=== PATIENT | male | born 1950 | race Caucasian/White ===

== ENCOUNTER 2021-02-16 08:11 | Outpatient (CLI) | payer MEDICARE, SELFPAY ==
--- NOTE | ~2021-02-16 | XR_ITS ---
EXAMINATION: XR knee RT min 4V DATE: 02/16/2021 09:09 INDICATION: Right knee pain. TECHNIQUE: 4 views of right knee were obtained. COMPARISON: None. FINDINGS: Bone alignment is normal. No fracture. There is mild tricompartmental osteoarthritis. There is chondrocalcinosis of the [place]i. No knee joint effusion. IMPRESSION: 1. Mild right knee osteoarthritis. Reviewed, dictated and finalized at location B.
--- NOTE | ~2021-02-16 | XR_ITS ---
EXAMINATION: XR knee LT min 4V DATE: 02/16/2021 09:09 INDICATION: Left knee pain. TECHNIQUE: 4 views of left knee standing were obtained. COMPARISON: None. FINDINGS: Bone alignment is normal. No fracture. There is mild tricompartmental osteoarthritis. No kn ee joint effusion. IMPRESSION: 1. Mild left knee osteoarthritis. Reviewed, dictated and finalized at location B.
--- NOTE | ~2021-02-16 | XR_ITS ---
EXAMINATION: XR hip BI 2V w AP pelvis DATE: 02/16/2021 09:09 INDICATION: Hip pain TECHNIQUE: AP view of the pelvis and two views of each hip were obtained. COMPARISON: None. FINDINGS: Bone alignment is normal. There is mild osteoarthritis of the hips. No fracture is identifi ed. There are phleboliths of the pelvis. Calcified atherosclerosis is noted. IMPRESSION: 1. Osteoarthritis of the hips. Reviewed, dictated and finalized at location A.
[2021-02-16 08:54] LABS: Basophils Percent Auto 0.5 % (0.2-1.2); Eosinophils Absolute Auto 0.2 K/mm3 (0-0.3); Eosinophils Percent Auto 2.7 % (0-4.4); Hematocrit 40.7 % (42.0-52.0); Hemoglobin 14.6 g/dL (14.0-18.0); Immature Granulocyte Absolute 0.03 K/mm3 (0.00-0.031); Immature Granulocyte Percent A 0.5 % (0-0.5); Lymphocytes Absolute Auto 1.47 K/mm3 (0.9-3.2); Lymphocytes Percent Auto 24.6 % (18.3-44.2); Mean Corpuscular HGB Conc 35.9 g/dl (32-36); Mean Corpuscular Hemoglobin 32.8 pg (26-34); Mean Corpuscular Volume 91.5 fl (80-100); Mean Platelet Volume 9.1 fl (7.4-10.4); Monocytes Absolute Auto 0.5 K/mm3 (0.1-0.6); Monocytes Percent Auto 8.5 % (2.6-8.5); Neutrophils Absolute Auto 3.8 K/mm3 (1.3-6.7); Neutrophils Percent Auto 63.2 % (45.5-73.1); Platelet Count Result 160 k/mm3 (150-375); Red Blood Count 4.45 M/mm3 (4.6-6.20); Red Cell Distribution Width 11.9 % (11.5-14.5)
[2021-02-16 09:12] LABS: Hemoglobin A1C 7.9 % (<5.7)
[2021-02-16 09:19] LABS: LDL Cholesterol Direct 67 mg/dL
[2021-02-16 09:45] LABS: Alanine Aminotransferase 45 U/L (4-50); Albumin Level 4.5 g/dL (3.5-5.1); Alkaline Phosphatase 64 U/L (38-126); Anion Gap 7 mmol/L (8-16); Aspartate Amino Transferase 34 U/L (17-59); Bilirubin,Total 0.2 mg/dL (0.2-1.3); Blood Urea Nitrogen 22 mg/dL (9-20); CRP 0.6 mg/dL (<1.0); Calcium 9.8 mg/dL (8.4-10.2); Carbon Dioxide 27 mmol/L (22-30); Chloride 104 mmol/L (98-107); Cholesterol 199 mg/dL (0-200); Creatine Kinase 103 U/L (55-170); Estimated Glomerular Filt Rate > 60; Glucose 270 mg/dL (75-110); HDL Direct 32 mg/dL; Potassium 4.5 mmol/L (3.4-5.0); Sodium 138 mmol/L (137-145)
[2021-02-16 09:49] LABS: Triglycerides 561 mg/dL (<150)
[2021-02-16 10:10] LABS: Free T4 Free Thyroxine 0.94 ng/mL (0.78-2.19)
[2021-02-18 10:37] LABS: Homocysteine 10.8 umol/L (<11.4)
== END 2021-02-16 08:12 | disposition home or self-care (01) ==
PROVIDERS: PCP Internal Medicine; Visit Provider Internal Medicine
DX: E11.9 Type 2 diabetes mellitus without complications (principal); I10 Essential (primary) hypertension; Z79.899 Other long term (current) drug therapy; E78.2 Mixed hyperlipidemia; M17.0 Bilateral primary osteoarthritis of knee; M16.0 Bilateral primary osteoarthritis of hip
CPT/HCPCS: 36415; 73521; 73564; 80053; 80061; 82550; 83036; 83090; 84439; 84443; 85025; 86140

== ENCOUNTER 2021-02-19 10:44 | Outpatient (CLI) | payer MEDICARE, SELFPAY ==
--- NOTE | ~2021-02-19 | CT_ITS ---
EXAMINATION: CT chest high resolution [facility] DATE: 02/19/2021 11:19 INDICATION: Dyspnea. Smoker. COPD. TECHNIQUE: Computed tomography (CT) of the chest was performed without intravenous contrast. The dose -length product was 577.74 mGy-cm. Automated exposure control and iterative reconstruction technique were employed. COMPARISON: None FINDINGS: There is atherosclerosis of the aorta with mild ectasia. There is atherosclerosis of the co ronary arteries. No significant pleural or pericardial effusion. No thoracic lymphadenopathy. Upper a bdomen is unremarkable. There is gynecomastia. Fatty infiltration of the liver. Evaluation of lung pa renchyma is limited by motion artifact. There are groundglass opacities in both lungs, predominantly in the upper lobes. No endobronchial lesions. No suspicious pulmonary nodules or masses. Calcified gr anuloma right middle lobe. IMPRESSION: 1. Patchy groundglass opacities in the upper lobes which may be due to small airway disease or infect ion. 2: Moderate atherosclerosis of the aorta and coronary arteries. Reviewed, dictated and finalized at location A. IMPRESSION: 1. Patchy groundglass opacities in the upper lobes which may be due to small ai rway disease or infection. 2: Moderate atherosclerosis of the aorta and coronary arteries.
== END 2021-02-19 10:45 | disposition home or self-care (01) ==
LOC: ANHIMG 10:46
PROVIDERS: PCP Internal Medicine; Visit Provider Internal Medicine
DX: J44.9 Chronic obstructive pulmonary disease, unspecified (principal); I25.10 Atherosclerotic heart disease of native coronary artery without angina pectoris; I70.0 Atherosclerosis of aorta
CPT/HCPCS: 71250

== ENCOUNTER 2021-02-26 08:57 | Outpatient (CLI) | payer MEDICARE, SELFPAY ==
--- NOTE | ~2021-02-26 | US_ITS ---
EXAMINATION: US abdomen limited DATE: 02/26/2021 09:56 INDICATION: Hepatomegaly. TECHNIQUE: Multiple grayscale and Doppler ultrasound images of the abdomen were obtained. COMPARISON: Chest CT 02/19/2021 FINDINGS: The visualized portions of the head and body of the pancreas are normal. There is diffuse h epatic steatosis. No liver surface nodularity. There is normal flow in main portal vein. The gallblad blade is normal in size and contains sludge. No gallstones or gallbladder wall thickening. There is no sonographic Ulloa sign. The common duct is normal and measures 7 mm. IMPRESSION: 1. Diffuse hepatic steatosis. 2. Gallbladder sludge. No evidence of acute cholecystitis. Reviewed, dictated and finalized at location A.
== END 2021-02-26 08:58 | disposition home or self-care (01) ==
PROVIDERS: PCP Internal Medicine; Visit Provider Internal Medicine
DX: K76.0 Fatty (change of) liver, not elsewhere classified (principal)
CPT/HCPCS: 76705

== ENCOUNTER 2021-03-03 11:00 | Outpatient (CLI) | payer MEDICARE, SELFPAY ==
--- NOTE | ~2021-03-03 | NM_ITS ---
EXAMINATION: NM hepatobiliary wo pharm DATE: 03/03/2021 14:06 INDICATION: Fatty change of liver, not elsewhere classified. COMPARISON: Ultrasound 02/26/2021 TECHNIQUE: 4.6 mCi Tc-99m mebrofenin (Choletec) was administered intravenously. Scintigraphic images of the abdomen were obtained for one hour. Then, the patient drank 8 oz Ensure, and imaging was cont inued for 60 minutes. FINDINGS: There is normal clearance of radiotracer from the blood pool. There is homogeneous tracer u ptake by the liver. Activity progresses to the bowel and gallbladder. Gallbladder ejection fraction (GBEF) was 23%. Note that with this technique, normal GBEF >= 33%. IMPRESSION: 1. Low gallbladder ejection fraction, consistent with gallbladder dysfunction and/or chronic cholecy stitis. Reviewed, dictated and finalized at location A. IMPRESSION: 1. Low gallbladder ejection fraction, consistent with gallbladder dysfunction and/or chronic cholecystitis.
== END 2021-03-03 11:01 | disposition home or self-care (01) ==
PROVIDERS: PCP Internal Medicine; Visit Provider Internal Medicine
DX: K76.0 Fatty (change of) liver, not elsewhere classified (principal)
CPT/HCPCS: 78226; A9537

== ENCOUNTER 2021-03-24 12:28 | Outpatient (CLI) | payer MEDICARE, SELFPAY ==
--- NOTE | 2021-03-24 16:08 | WPDPFTINT ---
PFT Procedure Performed PFT Procedure Performed Spirometry with Pre/Post Bronchodilator Plethysmography (Lung Vol) Diffusing Cap (DLCO) Flow Vol Loop PFT Interpretation This is a pulmonary function test with pre and post-bronchodilator spirometry, plethysmography and diffusing capacity. The test was performed and results interpreted in accordance with the 2019 and 2005 ATS/ERS Task Force guidelines respectively using the Global Lung Function Initiative-2012 reference equations. Patient demonstrated good effort and cooperation. Reproducibility criteria were met. The quality of the pre bronchodilator spirometry maneuver was Grade A and post bronchodilator spirometry maneuver was Grade A. Findings: Spirometry: there is decreased maximal expiratory airflow at low lung volumes with a concave expiratory flow tracing. The pre bronchodilator FVC is 2.83 L, 78% predicted. The pre bronchodilator FEV1 is 1.68 L, 61% predicted. The FEV1: FVC ratio is 59%. The post bronchodilator FVC is 3.00 L, representing a 6% increase. The post bronchodilator FEV1 is 1.79 L, representing a 6% increase. Plethysmography: The total lung capacity is 5.71 L, 91% predicted. Functional residual capacity is 3.11 L, 95% predicted. The residual volume is 2.74 L, 120% predicted. Diffusion capacity: The absolute diffusion capacity is 16.2, 67% predicted. The diffusing capacity corrected for alveolar volume is 3.54, 86% predicted. Impression: There is a moderate obstructive abnormality without significant improvement after inhaling a single dose of albuterol. The lung volumes are normal. the diffusing capacity is normal. There are no prior studies for comparison
== END 2021-03-24 12:29 | disposition home or self-care (01) ==
PROVIDERS: PCP Internal Medicine; Visit Provider Internal Medicine
DX: J44.9 Chronic obstructive pulmonary disease, unspecified (principal); R94.2 Abnormal results of pulmonary function studies
CPT/HCPCS: 94060; 94726; 94729

== ENCOUNTER 2021-04-13 13:23 | Outpatient (CLI) | payer MEDICARE, SELFPAY ==
[2021-04-13 14:02] LABS: Anion Gap 11 mmol/L (8-16); Blood Urea Nitrogen 32 mg/dL (7-18); Calcium 9.4 mg/dL (8.5-10.1); Carbon Dioxide 26 mmol/L (21-32); Chloride 101 mmol/L (98-108); Estimated Glomerular Filt Rate 50; Glucose 238 mg/dL (70-99); Osmolality Calculated 300 mOsm/kg (285-295); Potassium 5.1 mmol/L (3.5-5.1); Sodium 138 mmol/L (136-145)
== END 2021-04-13 13:24 | disposition home or self-care (01) ==
LOC: CHSLAB 13:28
PROVIDERS: PCP Internal Medicine
DX: I25.118 Atherosclerotic heart disease of native coronary artery with other forms of angina pectoris (principal); I10 Essential (primary) hypertension
CPT/HCPCS: 36415; 80048

== ENCOUNTER 2021-06-09 15:48 | Outpatient (CLI) | payer MEDICARE, SELFPAY ==
[2021-06-09 16:11] LABS: Hemoglobin A1C 6.8 % (<5.7)
[2021-06-09 16:59] LABS: Alanine Aminotransferase 95 U/L (16-63); Alkaline Phosphatase 48 U/L (46-116); Anion Gap 11 mmol/L (8-16); Aspartate Amino Transferase 42 U/L (15-37); Bilirubin,Total 0.4 mg/dL (0.00-1.00); Blood Urea Nitrogen 29 mg/dL (7-18); Calcium 9.3 mg/dL (8.5-10.1); Carbon Dioxide 28 mmol/L (21-32); Chloride 103 mmol/L (98-108); Cholesterol 144 mg/dL (0-200); Estimated Glomerular Filt Rate 44; Free T4 Free Thyroxine 0.94 ng/dL (0.76-1.46); Glucose 121 mg/dL (70-99); HDL Direct 31 mg/dL (40-60); LDL Cholesterol Calculated 61 mg/dL (<130); Osmolality Calculated 300 mOsm/kg (285-295); Potassium 4.2 mmol/L (3.5-5.1); Prostate Specific Antigen 1.9 ng/mL (< OR = 4.0); Sodium 142 mmol/L (136-145); Thyroid Stimulating Hormone 1.37 uIU/mL (0.36-3.74); Total Protein 6.9 g/dL (6.4-8.2); Triglycerides 262 mg/dL (0-150)
== END 2021-06-09 15:49 | disposition home or self-care (01) ==
LOC: CHSLAB 15:50
PROVIDERS: PCP Internal Medicine; Visit Provider Internal Medicine
DX: E78.2 Mixed hyperlipidemia (principal); E11.65 Type 2 diabetes mellitus with hyperglycemia; I10 Essential (primary) hypertension; Z79.899 Other long term (current) drug therapy; Z12.5 Encounter for screening for malignant neoplasm of prostate
CPT/HCPCS: 36415; 80053; 80061; 83036; 84153; 84439; 84443; G0103

== ENCOUNTER 2021-07-08 11:58 | Outpatient (CLI) | payer MEDICARE, SELFPAY ==
[2021-07-08 12:13] LABS: Add Urine Microscopic? YES; Appearance Urine Cloudy (Clear); Bilirubin Urine Negative (Negative); Blood Urine 1+ (Negative); Color Urine Light Yellow (Yellow); Glucose Urine UA Negative (Negative); Ketones Urine Negative (Negative); Leukocyte Esterase Ur 3+ LEU/UL (Negative); Nitrate Urine Negative (Negative); Protein Urine 1+ (Negative)
[2021-07-08 12:18] LABS: Bacteria Urine 2+ /hpf; WBC Urine 16-20 /hpf (0-3)
== END 2021-07-08 11:59 | disposition home or self-care (01) ==
LOC: CHSLAB 12:00
PROVIDERS: PCP Internal Medicine; Visit Provider Internal Medicine
DX: R39.9 Unspecified symptoms and signs involving the genitourinary system (principal); R82.90 Unspecified abnormal findings in urine
CPT/HCPCS: 81001; 87077; 87086; 87088; 87186

== ENCOUNTER 2021-07-20 14:44 | Outpatient (CLI) | payer MEDICARE, SELFPAY ==
[2021-07-20 15:46] LABS: Alanine Aminotransferase 64 U/L (16-63); Albumin Level 3.6 g/dL (3.4-5.0); Alkaline Phosphatase 54 U/L (46-116); Anion Gap 10 mmol/L (8-16); Aspartate Amino Transferase 25 U/L (15-37); Bilirubin Direct 0.1 mg/dL (0-0.2); Bilirubin,Total 0.3 mg/dL (0.00-1.00); Blood Urea Nitrogen 24 mg/dL (7-18); Carbon Dioxide 27 mmol/L (21-32); Chloride 104 mmol/L (98-108); Estimated Glomerular Filt Rate 57; Glucose 153 mg/dL (70-99); Osmolality Calculated 299 mOsm/kg (285-295); Potassium 4.3 mmol/L (3.5-5.1); Sodium 141 mmol/L (136-145); Total Protein 6.6 g/dL (6.4-8.2)
== END 2021-07-20 14:45 | disposition home or self-care (01) ==
LOC: CHSLAB 14:45
PROVIDERS: PCP Internal Medicine; Visit Provider Internal Medicine
DX: R79.89 Other specified abnormal findings of blood chemistry (principal); K76.0 Fatty (change of) liver, not elsewhere classified; I10 Essential (primary) hypertension
CPT/HCPCS: 36415; 80048; 80076

== ENCOUNTER 2021-07-28 09:11 | Outpatient (CLI) | payer SELFPAY | END 2021-07-28 09:12 | disposition home or self-care (01) | PROVIDERS: PCP Internal Medicine; Visit Provider Internal Medicine | DX: Z04.9 Encounter for examination and observation for unspecified reason (principal); Z53.8 Procedure and treatment not carried out for other reasons | CPT/HCPCS: 99199 ==

== ENCOUNTER 2021-08-06 13:39 | Outpatient (CLI) | payer MEDICARE, SELFPAY ==
--- NOTE | ~2021-08-06 | MR_ITS ---
EXAMINATION: MR lumbar spine wo con DATE: 08/06/2021 15:15 INDICATION: Lumbar radiculopathy. TECHNIQUE: Magnetic resonance imaging (MRI) of the lumbar spine was performed without intravenous con trast. Sequences included sagittal T2-weighted FSE, sagittal T2-weighted FS FSE, sagittal T1-weighted FSE, and axial T2-weighted FSE. COMPARISON: None FINDINGS: There is 4 degrees levocurvature of lumbar spine. There is mild chronic anterior wedging of T11-L1 vertebral bodies. There is severely decreased disc height at L1-L2, L3-L4, and L5-S1 and mode rately decreased disc height at L2-L3 and L4-L5 with endplate remodeling. Epidural lipomatosis is not ed. The distal spinal cord signal intensity is normal. The conus medullaris is at L1. The following d isc levels are specifically discussed: L1-L2: The disc is bulging and has an annular fissure. There is mild bilateral facet joint osteoarthr itis. There is mild left neural foraminal stenosis. There is mild central canal stenosis. L2-L3: The disc is bulging and has an annular fissure. There is moderate bilateral facet joint osteoa rthritis. There is mild bilateral neural foraminal stenosis. There is mild central canal stenosis. L3-L4: The disc is bulging and has an annular fissure. There is severe bilateral facet joint osteoart hritis. There is moderate right and mild left neural foraminal stenosis. There is mild central canal stenosis. L4-L5: The disc is bulging and has an annular fissure. There is moderate bilateral facet joint osteoa rthritis. There is mild bilateral neural foraminal stenosis. There is mild central canal stenosis. L5-S1: The disc is bulging and has an annular fissure. There is severe bilateral facet joint osteoart hritis. There is moderate bilateral neural foraminal stenosis. There is mild central canal stenosis. IMPRESSION: 1. Severe lumbar spondylosis. Reviewed, dictated and finalized at location A. DING MACHINE TENDER
== END 2021-08-06 13:40 | disposition home or self-care (01) ==
LOC: ANHIMG 13:40
PROVIDERS: PCP Internal Medicine; Visit Provider Internal Medicine
DX: M47.26 Other spondylosis with radiculopathy, lumbar region (principal)
CPT/HCPCS: 72148

== ENCOUNTER 2021-08-26 14:30 | Outpatient (RCR) | payer MEDICARE, SELFPAY ==
[2021-06-25 12:48] VITALS: BMI 37.0
[2021-06-25 12:54] VITALS: BMI 37.0
== END 2021-09-14 09:28 | disposition home or self-care (01) ==
LOC: ANHDMC 14:30
PROVIDERS: PCP Internal Medicine; Visit Provider Internal Medicine
DX: E11.65 Type 2 diabetes mellitus with hyperglycemia (principal); Z71.3 Dietary counseling and surveillance; Z71.89 Other specified counseling
CPT/HCPCS: 97802; 99199; G0108; G0109

== ENCOUNTER 2021-10-27 14:50 | Outpatient (CLI) | payer MEDICARE, SELFPAY ==
[2021-10-27 15:05] LABS: Basophils Absolute Auto 0.03 K/mm3 (0.00-0.10); Basophils Percent Auto 0.4 % (0.0-1.0); Eosinophils Absolute Auto 0.15 K/mm3 (0.02-0.50); Eosinophils Percent Auto 1.8 % (1.0-6.0); Hematocrit 44.6 % (37.0-46.0); Hemoglobin 15.4 g/dL (12.4-15.3); Immature Granulocyte Absolute 0.03 K/mm3 (0.00-0.00); Immature Granulocyte Percent A 0.4 % (0.0-0.0); Lymphocytes Absolute Auto 1.82 K/mm3 (1.10-4.50); Mean Corpuscular HGB Conc 34.5 g/dL (32.0-36.0); Mean Corpuscular Volume 92.5 fL (78.0-102.0); Mean Platelet Volume 8.9 fl (8.7-11.0); Monocytes Absolute Auto 0.58 K/mm3 (0.10-0.90); Neutrophils Absolute Auto 5.7 K/mm3 (1.7-7.2); Neutrophils Percent Auto 68.4 % (50.0-70.0); Platelet Count Result 176 K/mm3 (150-420); Red Blood Count 4.82 M/mm3 (4.70-6.10); White Blood Count 8.3 K/mm3 (4.8-10.8)
[2021-10-27 15:54] LABS: Alanine Aminotransferase 60 U/L (16-63); Albumin Level 4.5 g/dL (3.4-5.0); Alkaline Phosphatase 54 U/L (46-116); Anion Gap 9 mmol/L (8-16); Aspartate Amino Transferase 24 U/L (15-37); Bilirubin,Total 0.3 mg/dL (0.00-1.00); Blood Urea Nitrogen 24 mg/dL (7-18); Carbon Dioxide 30 mmol/L (21-32); Chloride 100 mmol/L (98-108); Cholesterol 149 mg/dL (0-200); Estimated Glomerular Filt Rate > 60; Glucose 109 mg/dL (70-99); HDL Direct 34 mg/dL (40-60); Hemoglobin A1C 6.6 % (<5.7); LDL Cholesterol Calculated 66 mg/dL (<130); Osmolality Calculated 293 mOsm/kg (285-295); Potassium 4.6 mmol/L (3.5-5.1); Sodium 139 mmol/L (136-145); Total Protein 7.9 g/dL (6.4-8.2); Triglycerides 245 mg/dL (0-150)
== END 2021-10-27 14:51 | disposition home or self-care (01) ==
LOC: CHSLAB 14:52
PROVIDERS: PCP Internal Medicine; Visit Provider Internal Medicine
DX: E11.65 Type 2 diabetes mellitus with hyperglycemia (principal); I10 Essential (primary) hypertension; E78.2 Mixed hyperlipidemia
CPT/HCPCS: 36415; 80053; 80061; 83036; 85025

== ENCOUNTER 2021-10-30 13:00 | Outpatient (RCR) | payer MEDICARE, SELFPAY | END 2021-10-30 14:16 | disposition home or self-care (01) | LOC: ANHDMC 13:00 | PROVIDERS: PCP Internal Medicine; Visit Provider Internal Medicine | DX: E11.65 Type 2 diabetes mellitus with hyperglycemia (principal); Z71.89 Other specified counseling | CPT/HCPCS: G0108 ==

== ENCOUNTER 2022-03-05 12:52 | Outpatient (CLI) | payer MEDICARE, MEDICAID, SELFPAY ==
[2022-03-05 13:28] LABS: Hemoglobin A1C 6.7 % (<5.7)
[2022-03-05 13:40] LABS: Alanine Aminotransferase 74 U/L (16-63); Albumin Level 3.6 g/dL (3.4-5.0); Alkaline Phosphatase 58 U/L (46-116); Anion Gap 5 mmol/L (8-16); Aspartate Amino Transferase 22 U/L (15-37); Bilirubin,Total 0.5 mg/dL (0.00-1.00); Blood Urea Nitrogen 23 mg/dL (7-18); Carbon Dioxide 30 mmol/L (21-32); Chloride 104 mmol/L (98-108); Cholesterol 133 mg/dL (0-200); Estimated Glomerular Filt Rate 57; Free T4 Free Thyroxine 1.08 ng/dL (0.76-1.46); Glucose 188 mg/dL (70-99); HDL Direct 42 mg/dL (40-60); LDL Cholesterol Calculated 66 mg/dL (<130); Osmolality Calculated 296 mOsm/kg (285-295); Potassium 4.5 mmol/L (3.5-5.1); Sodium 139 mmol/L (136-145); Thyroid Stimulating Hormone 0.76 uIU/mL (0.36-3.74); Triglycerides 124 mg/dL (0-150)
[2022-03-05 13:43] LABS: Creatinine Urine 83.03 mg/dL (40-278); MALB Creatinine Ratio 15.6 mg/g (0-30); Microalbumin Urine Random < 13.0 mg/L
== END 2022-03-05 12:53 | disposition home or self-care (01) ==
LOC: CHSLAB 12:54
PROVIDERS: PCP Internal Medicine; Visit Provider Internal Medicine
DX: E78.2 Mixed hyperlipidemia (principal); E11.65 Type 2 diabetes mellitus with hyperglycemia; I10 Essential (primary) hypertension; Z79.899 Other long term (current) drug therapy; Z12.5 Encounter for screening for malignant neoplasm of prostate
CPT/HCPCS: 36415; 80053; 80061; 82043; 83036; 84439; 84443

== ENCOUNTER 2022-04-07 14:48 | Emergency (ER) | payer MEDICARE, MEDICAID, SELFPAY ==
[2022-04-07] VITALS (15 sets, daily range): BP systolic 94–118; BP diastolic 64–83; PULSE 71–95; RESP 12–21; TEMP 36.3; O2SAT 95–100
--- NOTE | ~2022-04-07 | XR_ITS ---
XR chest 2V 04/07/2022 16:20 Indication: Weakness. COPD. Hypertension. Procedure: 2 view chest Comparison: No prior studies for comparison. Findings: Patchy bibasilar infiltrates. Heart size normal. No significant effusion or pneumothorax. N o acute osseous abnormality. Impression: 1: Patchy bibasilar infiltrates may represent atelectasis or developing pneumonia. Reviewed, dictated and finalized at location A. Impression: 1: Patchy bibasilar infiltrates may represent atelectasis or developing pneumon ia.
--- NOTE | 2022-04-07 15:10 | ECG_ITS ---
Measurements Intervals [place] Rate: 89 P: 49 NM: 181 QRS: -12 QRSD: 97 T: 71 QT: 349 QTc: 426 Interpretive Statements SINUS RHYTHM DELAYED PRECORDIAL R/S TRANSITION BORDERLINE ECG Electronically Signed On 04-07-2022 15:31:40 CDT by Kp Ward D.O.
[2022-04-07 15:35] LABS: Basophils Percent Auto 0.3 % (0.2-1.2); Eosinophils Absolute Auto 0.1 K/mm3 (0-0.3); Eosinophils Percent Auto 1.1 % (0-4.4); Hemoglobin 13.7 g/dL (14.0-18.0); Immature Granulocyte Absolute 0.02 K/mm3 (0.00-0.031); Immature Granulocyte Percent A 0.3 % (0-0.5); Lymphocytes Absolute Auto 1.38 K/mm3 (0.9-3.2); Lymphocytes Percent Auto 19.5 % (18.3-44.2); Mean Corpuscular HGB Conc 33.4 g/dl (32-36); Mean Corpuscular Hemoglobin 31.4 pg (26-34); Mean Corpuscular Volume 93.8 fl (80-100); Mean Platelet Volume 9.1 fl (7.4-10.4); Monocytes Absolute Auto 0.4 K/mm3 (0.1-0.6); Monocytes Percent Auto 5.9 % (2.6-8.5); Neutrophils Absolute Auto 5.1 K/mm3 (1.3-6.7); Neutrophils Percent Auto 72.9 % (45.5-73.1); Platelet Count Result 170 k/mm3 (150-375); Red Blood Count 4.37 M/mm3 (4.6-6.20); White Blood Count 7.1 K/mm3 (4.5-10.0)
[2022-04-07 15:44] LABS: Alanine Aminotransferase 46 U/L (6-50); Albumin Level 4.3 g/dL (3.5-5.1); Alkaline Phosphatase 48 U/L (38-126); Anion Gap 8 mmol/L (8-16); Aspartate Amino Transferase 30 U/L (17-59); Bilirubin,Total 0.4 mg/dL (0.2-1.3); Blood Urea Nitrogen 22 mg/dL (9-20); Calcium 9.7 mg/dL (8.4-10.2); Carbon Dioxide 27 mmol/L (22-30); Chloride 105 mmol/L (98-107); Estimated CRCL calculation 48 ml/min; Estimated Glomerular Filt Rate 54; Glucose 137 mg/dL (65-110); Potassium 4.4 mmol/L (3.4-5.0); Sodium 140 mmol/L (137-145)
[2022-04-07 15:46] LABS: Appearance Urine Clear (Clear); Bilirubin Urine Negative (Negative); Blood Urine Negative (Negative); Color Urine Yellow (Yellow); Glucose Urine UA 3+ mg/dL (Negative); Ketones Urine Negative (Negative); Leukocyte Esterase Ur Negative LEU/UL (Negative); Nitrate Urine Negative (Negative); Protein Urine Negative (Negative); pH Urine 5.5 (5.0-9.0)
[2022-04-07 15:56] LABS: Add Urine Microscopic? YES; Mucus Urine Rare /lpf; RBC Urine 0-2 /hpf (0-2); WBC Urine 0-3 /hpf
--- NOTE | 2022-04-07 17:09 | ED.GENADULT ---
HPI - General Adult General Chief complaint: Weakness Stated complaint: low blood pressure with weakness and fatigue Time Seen by Provider: 04/07/22 17:06 Source: patient and RN notes reviewed Mode of arrival: ambulatory Limitations: no limitations History of Present Illness HPI narrative: Patient is 71 years old white male, lives alone, went to the pain management clinic for chronic lower back pain for regular checkup. His blood pressure found to be low. Patient went to his family physician and was told to come to the emergency room right away because his blood pressure was at that time 80/50. On arrival to the emergency room blood pressure is 106/78. When I went to to see the patient in the room his blood pressure was 113/74 and patient is asymptomatic. Dr. Dr. Gerardo told me that patient was a little bit diaphoretic when he went to his office. Patient denies any fever, chills, nausea, vomiting, chest pain, shortness of breath, headache, different back pain than before or abdominal pain. He feels great and does not understand what is going on. Patient reported feeling lousy immediately after was told that his blood pressure was low which lasted for 2 hours and currently is asymptomatic. History of diabetes, hyperlipidemia, hypertension, 3 coronary stents, on aspirin as needed, and Plavix.. Does not smoke or drink or uses drugs. Currently would like to eat patient reports when he takes deep breath, sometimes feels like stabbing pain below his left shoulder blade which last for a fraction of second then resolves. Related Data Home Medications Medication Instructions Recorded Confirmed multivitamin 1 tablet PO DAILY 02/16/21 03/16/22 omega-3 fatty acids 1,000 mg 1,000 mg PO BID 06/22/21 03/16/22 capsule (Fish Oil Concentrate) blood-glucose meter ([employer] 07/16/21 03/16/22 Verio Meter) Allergies Allergy/AdvReac Type Severity Reaction Status Date / Time No Known Allergies Allergy Verified 04/07/22 17:07 Review of Systems Review of Systems: All systems reviewed & are unremarkable except as noted in HPI and below PMFSH Past Medical History Medical History BMI 36.0-36.9,adult BMI 37.0-37.9, adult CHF (congestive heart failure) Chronic low back pain CKD (chronic kidney disease) stage 1, GFR 90 ml/min or greater COPD (chronic obstructive pulmonary disease) DJD (degenerative joint disease), multiple sites DM2 (diabetes mellitus, type 2) Elevated serum creatinine Encounter for routine adult health examination without abnormal findings Follow up Heart attack Heart disease History of obstructive sleep apnea History of shortness of breath HTN (hypertension) Left knee pain Mixed hyperlipidemia Prostate cancer screening Surgical History Surgical History H/O heart artery stent 3 stents done at [facility] in [place] History of cardiac cath 2010, 2012, 2020 History of carpal tunnel surgery History of colonoscopy Family History Family History Mother Acute myocardial infarction at age 40 Father Heart disease at age 72 Heart attack Social History Social History Smoking packs per day: 1 Smoking cigarettes per day: 20.0 Years smoked: 40 Smoking pack-years: 40.00 Smoking status: Former smoker Tobacco type: cigarettes Second hand tobacco smoke exposure: Yes Smoking end date: 09/26/07 Alcohol intake: never Substance use: never Substance use type: does not use Gender identity (if verbalized by the patient): Male Sexual Orientation (if Verbalized by the Patient): Straight or Heterosexual Spiritual care concerns: No Agree to blood products: Yes Exam Narrative: General appearance: Well-developed, well-nourished Skin: Nor
[2022-04-07 18:06] LABS: Lactic Acid Reflex 1.7 mmol/L (0.7-2.0)
[2022-04-07 18:10] LABS: INR 1.1; Prothrombin Time 13.5 Seconds (11.1-14.7)
[2022-04-07 18:11] LABS: Partial Thromboplastin Time 28.4 SECONDS (22.3-36.8)
[2022-04-07 18:16] LABS: CRP < 0.5 mg/dL (<1.0)
[2022-04-07 18:18] LABS: D Dimer 0.46 ug/mL (<0.48)
[2022-04-07 18:22] LABS: NT Pro B Type Natriuretic Pept 44 pg/mL (5-100)
[2022-04-07 18:50] LABS: SARS-CoV-2 RNA PCR Negative
[2022-04-07] MEDS: levoFLOXacin 750 MG TABLET PO (19:00)
== END 2022-04-07 19:04 | disposition left against medical advice (07) ==
PROVIDERS: Emergency Provider Emergency Medicine; PCP Internal Medicine
DX: J18.9 Pneumonia, unspecified organism (principal); I95.9 Hypotension, unspecified; I13.0 Hypertensive heart and chronic kidney disease with heart failure and stage 1 through stage 4 chronic kidney disease, or unspecified chronic kidney disease; I50.9 Heart failure, unspecified; N18.1 Chronic kidney disease, stage 1; E11.22 Type 2 diabetes mellitus with diabetic chronic kidney disease; E78.2 Mixed hyperlipidemia; I25.2 Old myocardial infarction; Z87.891 Personal history of nicotine dependence; Z20.822 Contact with and (suspected) exposure to COVID-19
CPT/HCPCS: 36415; 71046; 80053; 81001; 83605; 83880; 85025; 85380; 85610; 85730; 86140; 87040; 93005; 99284; A9270; C9803; U0003; U0005

== ENCOUNTER 2022-04-24 11:32 | Outpatient (CLI) | payer MEDICARE, MEDICAID, SELFPAY ==
--- NOTE | ~2022-04-24 | MR_ITS ---
EXAMINATION: MR lumbar spine wo con DATE: 04/24/2022 12:29 INDICATION: Lumbar radiculopathy. TECHNIQUE: Magnetic resonance imaging (MRI) of the lumbar spine was performed without intravenous con trast. Sequences included sagittal T2-weighted FSE, sagittal T2-weighted FS FSE, sagittal T1-weighted FSE, and axial T2-weighted FSE. COMPARISON: Lumbar spine MRI 08/06/2021 FINDINGS: There is 7 degrees levocurvature of lumbar spine. There is 3 mm retrolisthesis of L1 on L2 and L5 on S1. There is mild chronic anterior wedging of T11 and T12 vertebral bodies. There is severe ly decreased disc height at L1-L2, moderately decreased disc height at L2-L3, and severely decreased disc height from L3-L4 through L5-S1 with endplate remodeling. Epidural lipomatosis is noted. The dis michelle spinal cord signal intensity is normal. The conus medullaris is at L1. The following disc levels are specifically discussed: L1-L2: The disc is bulging and has an annular fissure. There is mild bilateral facet joint osteoarthr itis. There is mild bilateral neural foraminal stenosis. There is mild central canal stenosis. L2-L3: The disc is bulging and has an annular fissure. There is severe bilateral facet joint osteoart hritis. There is mild bilateral neural foraminal stenosis. There is mild central canal stenosis. L3-L4: The disc is bulging and has an annular fissure. There is severe bilateral facet joint osteoart hritis. There is moderate right and mild left neural foraminal stenosis. There is mild central canal stenosis. L4-L5: The disc is bulging and has an annular fissure. There is severe bilateral facet joint osteoart hritis. There is mild bilateral neural foraminal stenosis. There is moderate central canal stenosis. L5-S1: The disc is bulging and has an annular fissure. There is severe bilateral facet joint osteoart hritis. There is moderate bilateral neural foraminal stenosis. There is mild central canal stenosis. IMPRESSION: 1. Severe lumbar spondylosis, stable from 08/06/2021. Reviewed, dictated and finalized at location A.
--- NOTE | ~2022-04-24 | MR_ITS ---
EXAMINATION: MR thoracic spine wo con DATE: 04/24/2022 12:29 INDICATION: Lumbar radiculopathy. TECHNIQUE: Magnetic resonance imaging (MRI) of the thoracic spine was performed without intravenous c ontrast. Sagittal localizer T1-weighted FSE of the cervical spine was obtained. Thoracic spine sequen chong included sagittal T2-weighted FSE, sagittal T1-weighted FSE, sagittal T2-weighted FS FSE, and axi al T2-weighted FSE. COMPARISON: None FINDINGS: There is 8 degrees levocurvature of upper thoracic spine. There is mild chronic height loss of multiple vertebral bodies. There is decreased disc height at most levels, moderate at T3-T4, T6-T 7, and T7-T8 and severe at T8-T9 and T9-T10. There is multilevel facet joint osteoarthritis, severe a t multiple levels. On the right, there is mild neural foraminal stenosis at T1-T2, T3-T4, T8-T9, T9-T 10, and T12-L1. On the left, there is mild neural foraminal stenosis at T6-T7, T7-T8, and T8-T9 and m oderate neural foraminal stenosis at T9-T10. The discs are bulging from T1-T2 through T4-T5, from T6- T7 through T9-T10, and at T12-L1 with mild central canal stenosis. The spinal cord signal intensity i s normal. IMPRESSION: 1. Severe thoracic spondylosis. Reviewed, dictated and finalized at location A.
== END 2022-04-24 11:33 | disposition home or self-care (01) ==
PROVIDERS: PCP Internal Medicine; Visit Provider Nurse Practitioner Family
DX: M47.894 Other spondylosis, thoracic region (principal); M47.26 Other spondylosis with radiculopathy, lumbar region
CPT/HCPCS: 72146; 72148

== ENCOUNTER 2022-05-04 15:14 | Outpatient (CLI) | payer MEDICARE, MEDICAID, SELFPAY ==
--- NOTE | ~2022-05-04 | XR_ITS ---
EXAM: XR cervical spine 4-5V DATE: 05/04/2022 15:58 HISTORY: LT sided neck pain with numbness down LT arm NKI . COMPARISON: None available. FINDINGS: Craniocervical association and atlantoaxial joint are aligned, with moderate degenerative change. No prevertebral soft tissue swelling. Vertebral bodies are aligned. Multilevel disc height lo ss and marginal osteophytosis in the mid and lower cervical spine. Multilevel moderate bilateral neur al foraminal narrowing secondary to degenerative facet and uncovertebral joint change. IMPRESSION: No acute fracture or traumatic malalignment in the cervical spine. Multilevel severe dege nerative disc disease. Multilevel moderate bilateral neural foraminal narrowing. Reviewed, dictated and finalized at location K. IMPRESSION: No acute fracture or traumatic malalignment in the cervical spine. Multilevel severe degenerative disc disease. Multilevel moderate bilateral neur al foraminal narrowing.
== END 2022-05-04 15:15 | disposition home or self-care (01) ==
LOC: CHSIMG 15:20
PROVIDERS: PCP Internal Medicine; Visit Provider Internal Medicine
DX: M54.12 Radiculopathy, cervical region (principal)
CPT/HCPCS: 72050

== ENCOUNTER 2022-06-03 15:58 | Outpatient (CLI) | payer MEDICARE, MEDICAID, SELFPAY ==
--- NOTE | ~2022-06-03 | XR_ITS ---
XR shoulder LT min 2V DATE: 06/03/2022 16:22 INDICATION: Left shoulder pain, limited movement for 2 to 3 weeks TECHNIQUE: 4 views COMPARISON: None FINDINGS: No fracture or dislocation, periosteal reaction or bone destruction. Normal soft tissue calcification is noted near the insertion of the rotator cuff at the greater tuber osity. Mild degenerative spurring at the acromion clavicular joint. IMPRESSION: Mild rotator cuff calcification suggesting calcific tendinitis Mild degenerative change at the left acromioclavicular joint Reviewed, dictated and finalized at location A.
== END 2022-06-03 15:59 | disposition home or self-care (01) ==
LOC: CHSIMG 16:03
PROVIDERS: PCP Internal Medicine; Visit Provider Nurse Practitioner Family
DX: M25.512 Pain in left shoulder (principal)
CPT/HCPCS: 73030

== ENCOUNTER 2022-07-06 13:24 | Outpatient (CLI) | payer MEDICARE, MEDICAID, SELFPAY ==
--- NOTE | ~2022-07-06 | MR_ITS ---
EXAMINATION: MR cervical spine wo con DATE: 07/06/2022 14:37 INDICATION: Chronic worsening cervical radicular pain TECHNIQUE: Magnetic resonance imaging (MRI) of the cervical spine was performed without intravenous c ontrast. Sequences included sagittal T2-weighted FSE, sagittal T2-weighted FS FSE, sagittal T1-weight ed FSE, axial MERGE and axial T2-weighted FSE. COMPARISON: Cervical spine radiographs dated 05/04/2022 FINDINGS: Evaluation mildly limited by motion artifact or blurring on multiple sequences including the 2 repeat ed sagittal sequences. Bone alignment is normal. Vertebral body heights are normal. No fracture. Nor mal bone marrow signal. Severe disc height loss at C6-C7 and C7-T1, moderate disc height loss at C5-C 6 and T1-T2 and mild disc height loss at C3-C4, C4-C5, T2-T3 and T3-T4. Cord signal intensity is norm al. The visualized cervical soft tissues are unremarkable. The following disc levels are specifically discussed: C2-C3: The disc does not extend beyond the endplate margin. There is mild right and moderate left unc overtebral joint osteoarthritis. There is mild right and moderate left facet joint osteoarthritis. Th ere is mild to moderate left neural foraminal stenosis. There is no central canal stenosis. C3-C4: The disc does not extend beyond the endplate margin. There is mild right and moderate to sever e left uncovertebral joint osteoarthritis. There is mild right and severe left facet joint osteoarthr itis. There is mild right and moderate left neural foraminal stenosis. There is no central canal sten osis. C4-C5: The disc does not extend beyond the endplate margin. There is mild bilateral uncovertebral eric nt osteoarthritis. There is mild right and severe left facet joint osteoarthritis. There is mild righ t and moderate left neural foraminal stenosis. There is no central canal stenosis. C5-C6: Posterior disc osteophyte complex. There is severe bilateral uncovertebral joint osteoarthriti s. There is mild bilateral facet joint osteoarthritis. There is mild left and moderate right neural f oraminal stenosis. There is mild central canal stenosis. C6-C7: Posterior disc osteophyte complex. There is moderate bilateral uncovertebral joint osteoarthri tis. There is mild bilateral facet joint osteoarthritis. There is mild bilateral neural foraminal viet nosis. There is mild central canal stenosis. C7-T1: Disc is bulging. There is mild bilateral uncovertebral joint osteoarthritis. There is mild angus ateral facet joint osteoarthritis. There is mild bilateral neural foraminal stenosis. There is mild c entral canal stenosis. IMPRESSION: 1. Severe cervical spondylosis. Reviewed, dictated and finalized at location B.
== END 2022-07-06 13:25 | disposition home or self-care (01) ==
LOC: ANHIMG 13:26
PROVIDERS: PCP Internal Medicine; Visit Provider Nurse Practitioner Family
DX: M47.22 Other spondylosis with radiculopathy, cervical region (principal)
CPT/HCPCS: 72141

== ENCOUNTER 2022-07-15 15:28 | Outpatient (CLI) | payer MEDICARE, MEDICAID, SELFPAY ==
[2022-07-15 16:33] LABS: Hemoglobin A1C 6.1 % (<5.7)
[2022-07-15 16:39] LABS: Alanine Aminotransferase 36 U/L (16-63); Albumin Level 4.2 g/dL (3.4-5.0); Alkaline Phosphatase 56 U/L (46-116); Anion Gap 10 mmol/L (8-16); Aspartate Amino Transferase 16 U/L (15-37); Bilirubin,Total 0.5 mg/dL (0.00-1.00); Blood Urea Nitrogen 20 mg/dL (7-18); Calcium 9.6 mg/dL (8.5-10.1); Carbon Dioxide 27 mmol/L (21-32); Chloride 103 mmol/L (98-108); Cholesterol 130 mg/dL (0-200); Estimated Glomerular Filt Rate > 60; Glucose 100 mg/dL (70-99); HDL Direct 35 mg/dL (40-60); LDL Cholesterol Calculated 65 mg/dL (<130); Osmolality Calculated 292 mOsm/kg (285-295); Potassium 3.9 mmol/L (3.5-5.1); Sodium 140 mmol/L (136-145); Total Protein 7.9 g/dL (6.4-8.2); Triglycerides 148 mg/dL (0-150)
== END 2022-07-15 15:29 | disposition home or self-care (01) ==
LOC: CHSLAB 15:32
PROVIDERS: PCP Internal Medicine; Visit Provider Internal Medicine
DX: E78.2 Mixed hyperlipidemia (principal); I10 Essential (primary) hypertension; E11.65 Type 2 diabetes mellitus with hyperglycemia
CPT/HCPCS: 36415; 80053; 80061; 83036

== ENCOUNTER 2022-12-09 10:37 | Outpatient (CLI) | payer MEDICARE, SELFPAY ==
[2022-12-09 11:04] LABS: Hemoglobin A1C 5.5 % (<5.7)
== END 2022-12-09 10:38 | disposition home or self-care (01) ==
LOC: CHSLAB 10:39
PROVIDERS: PCP Family Medicine; Visit Provider Family Medicine
DX: E11.9 Type 2 diabetes mellitus without complications (principal)
CPT/HCPCS: 36415; 83036

== ENCOUNTER 2023-04-18 09:37 | Outpatient (CLI) | payer MEDICARE, MEDICAID, SELFPAY ==
--- NOTE | 2023-04-18 09:52 | ECG_ITS ---
Measurements Intervals [place] Rate: 69 P: 69 [place]: 174 QRS: -40 QRSD: 121 T: 61 QT: 387 QTc: 415 Interpretive Statements SINUS RHYTHM LEFT AXIS DEVIATION INTRAVENTRICULAR CONDUCTION DELAY CANNOT RULE OUT SEPTAL INFARCT, AGE INDETERMINATE BASELINE ARTIFACT- II, AVR ABNORMAL ECG COMPARED TO ECG 04/07/2022 15:27:59 LEFT-AXIS DEVIATION NOW PRESENT MYOCARDIAL INFARCT FINDING NOW PRESENT Electronically Signed On 04-18-2023 10:29:29 CDT by Kp Ward D.O.
[2023-04-18 10:39] LABS: Prothrombin Time 13.8 Seconds (11.1-14.7)
[2023-04-18 10:40] LABS: Partial Thromboplastin Time 27.5 SECONDS (22.3-36.8)
[2023-04-18 10:42] LABS: Anion Gap 10 mmol/L (8-16); Blood Urea Nitrogen 26 mg/dL (9-20); Calcium 9.4 mg/dL (8.4-10.2); Carbon Dioxide 29 mmol/L (22-30); Chloride 99 mmol/L (98-107); Estimated Glomerular Filt Rate > 60; Glucose 100 mg/dL (65-110); Potassium 4.4 mmol/L (3.4-5.0); Sodium 138 mmol/L (137-145)
== END 2023-04-18 09:38 | disposition home or self-care (01) ==
PROVIDERS: Anesthesiology; PCP Family Medicine; Visit Provider Surgery
DX: K42.9 Umbilical hernia without obstruction or gangrene (principal); N18.1 Chronic kidney disease, stage 1; I10 Essential (primary) hypertension; E11.9 Type 2 diabetes mellitus without complications; Z01.818 Encounter for other preprocedural examination; I45.9 Conduction disorder, unspecified
CPT/HCPCS: 36415; 80048; 85610; 85730; 86850; 86900; 86901; 93005

== ENCOUNTER 2023-04-21 02:43 | Day surgery (SDC) | payer MEDICARE, MEDICAID, SELFPAY ==
[2023-04-15 08:57] VITALS: BMI 29.5
--- NOTE | 2023-04-15 09:22 | PC.NURSE ---
Report to the Outpatient Waiting Room, entrance under the green pavilion located off [facility], at time _12:30PM on date __04/21/23 . Planned Procedure Time: __2:30PM . Time changes happen often and if your time is changed the preop area will call you the afternoon before. - You and your visitor will be asked to self-screen and do not enter if you have any COVID symptoms. - A mask is optional within the hospital at this time. Patients may have clear liquids (water, carbonated beverages, clear teas, apple juice) until 3 hours prior to surgery with a maximum of 20 ounces. - No food from midnight until time of surgery Take the following medications with a SIP of water the morning of surgery: ___CARVEDILOL, SERTRALINE DO NOT STOP ANY OF YOUR OTHER PRESCRIPTION MEDICATIONS PRIOR TO SURGERY ?EXCEPT THE FOLLOWING Medications to discontinue per physician __HOLD PLAVIX 5 DAYS PRE-OP PER DR MAGAÑA- LAST DOSE 04/15/23. HOLD ALL VITAMINS/SUPPLEMENTS 3 DAYS PRE-OP PER ANESTHESIA- LAST DOSE 04/17/23. Please no make-up, nail azeri, hairspray, perfume, deodorant, or body powder the day of surgery. No jewelry (including any body piercings) or valuables the day of surgery, leave them at home. Please take a shower or bath the night before, or the morning of, surgery with an antibacterial soap. Wear comfortable, loose fitting clothing. Children are encouraged to wear pajamas. - Jewelry must be removed prior to entering the operating room. Rings and piercings that are not removed may be cut off. - The hospital will not accept responsibility for valuables. - Please leave all valuables, including medications, at home the day of surgery. If you are going home after surgery, a licensed construction driver must drive you home. - NO public transportation without another adult if you receive anesthesia. - We recommend that an adult stay with you for 24 hours following discharge. - We also recommend that you do not drive, make important decision, drink alcoholic beverages, or take any drugs that were not prescribed by your health care provider for at least 24 hours after your discharge time. Follow any additional instructions given to you from your surgeon. HIBICLENS SHOWER MORNING OF SURGERY If you or anyone in your household have experienced Covid symptoms in the past week, please notify your surgeon or the nurse liaison at the phone number below for possible testing. Telephone instructions given to __PATIENT and asked if any additional questions and then verbalized understanding. Patient advised to call surgeon office or pre surgery nurse liaison [phone] if any additional questions.
[2023-04-21] VITALS (9 sets, daily range): BP systolic 110–143; BP diastolic 69–92; PULSE 59–79; RESP 10–16; TEMP 36.1–36.8; O2SAT 94–100; BMI 29.3
[2023-04-21] MEDS: KETOROLAC 15 MG/ML VIAL (*BKC) IV PUSH (10:40)
[2023-04-21] MEDS: ACETAMINOPHEN 500 MG TABLET 1000 MG PO (10:40)
[2023-04-21] MEDS: LACTATED RINGERS 1,000 ML 30 ML IV CONT (10:45)
--- NOTE | 2023-04-21 10:47 | WPDANESEPPF ---
Anes - Initial Pre Proc Eval Procedure: Operation Date: 04/21/23 12:00 Proposed Procedures p Robotic Assisted Umbilical Hernia Repair with Mesh - Kathy Amado MD Date/Time: 04/21/23 10:47 Surgeon: Kathy Amado MD Pre Op Diagnosis: Umb Hernia Patient Data Age: 72 Gender: M Height: 1.68 m Weight: 83 kg Allergies Allergy/AdvReac Type Severity Reaction Status Date / Time No Known Allergies Allergy Verified 04/19/23 12:51 Home Medications Medication Instructions Recorded Confirmed Type pen needle, diabetic 33 gauge x #100 ea 04/29/21 04/01/23 Rx 1/4 omega-3 fatty acids 1,000 mg 1,000 mg PO BID 06/22/21 04/15/23 History capsule (Fish Oil Concentrate) blood-glucose meter (OneTouch 07/16/21 04/01/23 History Verio Meter) blood sugar diagnostic (OneTouch #100 ea 09/07/21 04/01/23 Rx Verio test strips) nitroglycerin 0.4 mg sublingual 0.4 mg sublingual Q5M PRN chest 05/10/22 04/15/23 Rx tablet pain #10 tabs Diabetic shoes #1 ea 06/04/22 04/01/23 Rx TENS unit electrodes #4 ea 06/22/22 04/01/23 Rx TENS units #1 ea 06/22/22 04/01/23 Rx aspirin 81 mg tablet,delayed 81 mg PO DAILY #90 tabs 11/24/22 04/15/23 Rx release (Adult Aspirin Regimen) clopidogrel 75 mg tablet 75 mg PO DAILY #90 tabs 11/24/22 04/15/23 Rx sertraline 50 mg tablet 50 mg PO BID #180 tabs 01/18/23 04/15/23 Rx lancets (OneTouch UltraSoft #100 ea 01/21/23 04/01/23 Rx Lancets) semaglutide 2 mg/dose (8 mg/3 mL) 2 mg (0.75 mL) subcut WEEKLY #3 mL 03/30/23 04/15/23 Rx subcutaneous pen injector carvedilol 12.5 mg tablet 12.5 mg PO BID 04/15/23 04/15/23 History dapagliflozin propanediol 10 mg 10 mg PO QAM 04/15/23 04/15/23 History tablet (Farxiga) fenofibrate nanocrystallized 145 145 mg PO HS 04/15/23 04/15/23 History mg tablet lisinopril 5 mg tablet 5 mg PO QAM 04/15/23 04/15/23 History rosuvastatin 20 mg tablet 20 mg PO DAILY 04/15/23 04/15/23 History terazosin 10 mg capsule 10 mg PO HS 04/15/23 04/15/23 History Patient hx anesthesia problems: none Family hx anesthesia problems: none Results Review: All pre-operative results and documents have been reviewed as part of the pre-operative evaluation. [facility] Past Medical History Medical History Bilateral bunions BMI 33.0-33.9,adult BMI 34.0-34.9,adult BMI 36.0-36.9,adult BMI 37.0-37.9, adult Callus of foot CHF (congestive heart failure) Chronic low back pain CKD (chronic kidney disease) stage 1, GFR 90 ml/min or greater COPD (chronic obstructive pulmonary disease) DJD (degenerative joint disease), multiple sites DM2 (diabetes mellitus, type 2) Elevated serum creatinine Encounter for routine adult health examination without abnormal findings Follow up Heart attack Heart disease History of obstructive sleep apnea History of shortness of breath HTN (hypertension) Left knee pain Left shoulder pain Mixed hyperlipidemia Peripheral neuropathy Prostate cancer screening Surgical History Surgical History H/O heart artery stent 3 stents done at [facility] in [place] History of cardiac cath 2010, 2012, 2020 History of carpal tunnel surgery History of colonoscopy Family History Family History Mother Acute myocardial infarction at age 40 Father Heart disease at age 72 Heart attack Social History Social History Smoking packs per day: 1 Smoking cigarettes per day: 20.0 Years smoked: 55 Smoking pack-years: 55.00 Smoking status: Former smoker Tobacco type: cigarettes Second hand tobacco smoke exposure: Yes Smoking end date: 03/26/08 Alcohol intake: never Substance use: never Substance use type: does not use Living arrangements: alone Occupation
--- NOTE | 2023-04-21 12:06 | WPDHPUPDATE1 ---
History and Physical Update Update Date/Time: 04/21/23 12:06 History and Physical has been reviewed, including an updated exam of the patient. There are NO changes in the patient's condition. Risks, benefits, and alternatives have been discussed and questions answered. Patient agrees to proceed with procedure.
[2023-04-21] MEDS: ceFAZolin 2 GM/D5W 50 ML 2 GM/50 ML BAG IVPB (12:17)
[2023-04-21] MEDS: BUPIVACAINE/EPINEPHRINE 0.5% 50 ML VIAL 30 ML INFILTRATE (13:15)
--- NOTE | 2023-04-21 14:22 | W.PM.PROC2 ---
Procedure Note - Detailed Date of Procedure 04/21/23 Pre-op Diagnosis incarcerated umbilical hernia with defect measuring 4 cm, diastasis recti Post-op Diagnosis Same Procedure Performed robotic assisted incarcerated umbilical hernia repair with mesh Surgeon Kathy Amado MD Anesthesia General Indications 72 y/o M c incarcerated umbilical hernia and diastasis recti Findings 4 cm defect incarcerated umbilical hernia c preperitoneal fat and omentum Description of Procedure The patient was taken the operating room placed in the supine position. After adequate induction of general anesthesia, the patient was prepped and draped in normal sterile fashion. A time-out was then done to verify the patient's identity as well as the procedure being performed. I began by making a 5 mm incision in the left upper quadrant. Through this, a Veress needle was placed into the peritoneal cavity and CO2 gas was insufflated. After adequate pneumoperitoneum was achieved, a 12 mm trocar was placed through this incision. I then placed the laparoscope through this trocar site and under direct visualization I placed a 8 mm port in the left mid abdomen as well as an additional 8 mm port in the left lower abdomen. The robot was then docked to the 3 port sites. I then went to the robotic console. I began by identifying the hernia. A moderate-sized incarcerated hernia was noted in the periumbilical region. Using graspers, I was able to reduce this hernia. The hernia was noted to contain a large amount of preperitoneal fat and omentum. Once reduced, I also reduced and dissected out the hernia sac. I then closed the approximately 4 cm defect with 0 strata fix suture. There was noted to be a significant diastasis superior to the defect. I continued the 0 Stratafix suture superior to imbricate this diastasis. I then placed a 15 x [address] mesh into the abdominal cavity. The Vicryl stitch was placed in the middle of the mesh and brought up centering the mesh over the defect. Once this was done, I used 2 0 V lock suture x 2 to circumferentially suture the mesh to the abdominal. Once the mesh was completely sutured in, I was happy with our tension-free repair. The mesh was noted to have good overlap of the defect. I then removed the Echo positioning device through the 12 mm port site. At this point, the robot was undocked and all ports were removed. I then closed the 12 mm port site with an 0 Vicryl [id number] suture at the fascial level. All port sites were then closed with 4 O Monocryl subcuticular suture. The patient tolerated the procedure well, is extubated in the operating room postoperative, and will be transferred to the recovery room in stable condition. Implants 15x10 cm Ventralight [address] mesh Estimated Blood Loss 10 Drains No Packing No Pathology None sent Complications No immediate complications Condition Stable Disposition PACU [facility] Billing Surgery - Charge Forward: Surgery Billing
[2023-04-21] MEDS: fentaNYL CITRATE INJ (*CRX) 100 MCG/2 ML VIAL 25 MCG IV PUSH ×6 (14:59→16:08)
[2023-04-21] MEDS: oxyCODONE HCL (*CRX) 5 MG TAB IR PO (16:08)
== END 2023-04-21 16:50 | disposition home or self-care (01) ==
PROVIDERS: PCP Family Medicine; Visit Provider Surgery
PROC: (CPT 49594; principal; 2023-04-21 12:00)
DX: K42.0 Umbilical hernia with obstruction, without gangrene (principal); M62.08 Separation of muscle (nontraumatic), other site; I13.0 Hypertensive heart and chronic kidney disease with heart failure and stage 1 through stage 4 chronic kidney disease, or unspecified chronic kidney disease; I50.9 Heart failure, unspecified; E11.22 Type 2 diabetes mellitus with diabetic chronic kidney disease; N18.1 Chronic kidney disease, stage 1; J44.9 Chronic obstructive pulmonary disease, unspecified; I25.2 Old myocardial infarction; G47.33 Obstructive sleep apnea (adult) (pediatric); E78.2 Mixed hyperlipidemia; E11.42 Type 2 diabetes mellitus with diabetic polyneuropathy; Z79.02 Long term (current) use of antithrombotics/antiplatelets; Z79.82 Long term (current) use of aspirin; Z79.899 Other long term (current) drug therapy; Z79.84 Long term (current) use of oral hypoglycemic drugs; Z95.5 Presence of coronary angioplasty implant and graft; Z87.891 Personal history of nicotine dependence
CPT/HCPCS: 49594; S2900; 36415; 80048; 85610; 85730; 86850; 86900; 86901; 93005; A9270; C1781; J0461; J0690; J1100; J1885; J2405; J2704; J3010; J7120

== ENCOUNTER 2023-10-25 14:36 | Outpatient (CLI) | payer MEDICARE, SELFPAY ==
[2023-10-25 14:50] LABS: Basophils Absolute Auto 0.03 K/mm3 (0.00-0.10); Basophils Percent Auto 0.4 % (0.0-1.0); Eosinophils Absolute Auto 0.19 K/mm3 (0.02-0.50); Eosinophils Percent Auto 2.8 % (1.0-6.0); Hematocrit 44.6 % (37.0-46.0); Hemoglobin 14.9 g/dL (12.4-15.3); Immature Granulocyte Absolute 0.01 K/mm3 (0.00-0.00); Immature Granulocyte Percent A 0.1 % (0.0-0.0); Lymphocytes Absolute Auto 1.28 K/mm3 (1.10-4.50); Lymphocytes Percent Auto 18.6 % (18.0-42.0); Mean Corpuscular HGB Conc 33.4 g/dL (32.0-36.0); Mean Corpuscular Hemoglobin 30.8 pg (27.0-31.0); Mean Corpuscular Volume 92.1 fL (78.0-102.0); Monocytes Absolute Auto 0.53 K/mm3 (0.10-0.90); Monocytes Percent Auto 7.7 % (2.0-11.0); Neutrophils Absolute Auto 4.8 K/mm3 (1.7-7.2); Neutrophils Percent Auto 70.4 % (50.0-70.0); Platelet Count Result 171 K/mm3 (150-420); Red Blood Count 4.84 M/mm3 (4.70-6.10); Red Cell Distribution Width 12.2 % (11.6-14.4); White Blood Count 6.9 K/mm3 (4.8-10.8)
[2023-10-25 15:21] LABS: Alanine Aminotransferase 28 U/L (16-63); Albumin Level 3.9 g/dL (3.4-5.0); Alkaline Phosphatase 57 U/L (46-116); Anion Gap 6 mmol/L (8-16); Aspartate Amino Transferase 12 U/L (15-37); Bilirubin,Total 0.7 mg/dL (0.00-1.00); Blood Urea Nitrogen 25 mg/dL (7-18); Calcium 9.2 mg/dL (8.5-10.1); Carbon Dioxide 33 mmol/L (21-32); Chloride 102 mmol/L (98-108); Cholesterol 144 mg/dL (0-200); Estimated Glomerular Filt Rate 53; Glucose 111 mg/dL (70-99); HDL Direct 46 mg/dL (40-60); LDL Cholesterol Calculated 81 mg/dL (<130); Osmolality Calculated 297 mOsm/kg (285-295); Potassium 4.9 mmol/L (3.5-5.1); Sodium 141 mmol/L (136-145); Total Protein 7.2 g/dL (6.4-8.2); Triglycerides 87 mg/dL (0-150)
[2023-10-25 15:24] LABS: Hemoglobin A1C 5.7 % (<5.7)
[2023-10-25 15:40] LABS: Thyroid Stimulating Hormone Reflex 1.44 u/IU/mL (0.36-3.74)
== END 2023-10-25 14:37 | disposition home or self-care (01) ==
LOC: CHSLAB 14:38
PROVIDERS: PCP Family Medicine; Visit Provider Family Medicine
DX: E11.65 Type 2 diabetes mellitus with hyperglycemia (principal); I25.10 Atherosclerotic heart disease of native coronary artery without angina pectoris
CPT/HCPCS: 36415; 80053; 80061; 83036; 84443; 85025

== ENCOUNTER 2023-10-28 11:51 | Outpatient (CLI) | payer MEDICARE, SELFPAY ==
--- NOTE | 2023-10-28 11:56 | ECG_ITS ---
Measurements Intervals [place] Rate: 62 P: 53 TN: 195 QRS: -7 QRSD: 120 T: 30 QT: 403 QTc: 412 Interpretive Statements SINUS RHYTHM INTRAVENTRICULAR CONDUCTION DELAY [110+ ms QRS DURATION] BORDERLINE ECG COMPARED TO ECG 04/18/2023 10:12:48 AXIS IS NO LONGER LEFTWARD Electronically Signed On 10-28-2023 14:04:31 FILES SUPERVISOR by Jonathan Santos M.D.
== END 2023-10-28 11:52 | disposition home or self-care (01) ==
LOC: CHSCARD 11:53
PROVIDERS: PCP Family Medicine; Visit Provider Family Medicine
DX: I25.10 Atherosclerotic heart disease of native coronary artery without angina pectoris (principal)
CPT/HCPCS: 93005

== ENCOUNTER 2024-03-16 10:49 | Outpatient (CLI) | payer MEDICARE, SELFPAY ==
--- NOTE | ~2024-03-16 | XR_ITS ---
EXAMINATION: XR chest 2V 03/16/2024 11:01 INDICATION: Cough and congestion PROCEDURE: 2 view chest COMPARISON: 04/07/2022 FINDINGS: The lungs are clear. The cardiomediastinal silhouette is within normal limits. There are no pleural effusions. There is no pneumothorax suspected. IMPRESSION: 1: NO ACUTE CARDIOPULMONARY DISEASE. Reviewed, dictated and finalized at location B.
== END 2024-03-16 10:50 | disposition home or self-care (01) ==
LOC: CHSIMG 10:50
PROVIDERS: PCP Family Medicine; Visit Provider Family Medicine
DX: R05.9 Cough, unspecified (principal)
CPT/HCPCS: 71046

== ENCOUNTER 2024-07-24 14:42 | Outpatient (CLI) | payer MEDICARE, SELFPAY ==
[2024-07-24 15:12] LABS: Basophils Absolute Auto 0.03 K/mm3 (0.00-0.10); Basophils Percent Auto 0.4 % (0.0-1.0); Eosinophils Percent Auto 4.4 % (1.0-6.0); Hemoglobin 14.2 g/dL (12.4-15.3); Immature Granulocyte Absolute 0.02 K/mm3 (0.00-0.00); Immature Granulocyte Percent A 0.3 % (0.0-0.0); Lymphocytes Absolute Auto 1.65 K/mm3 (1.10-4.50); Lymphocytes Percent Auto 24.1 % (18.0-42.0); Mean Corpuscular HGB Conc 34.6 g/dL (32-36); Mean Corpuscular Hemoglobin 31.7 pg (27.0-31.0); Mean Corpuscular Volume 91.5 fL (78.0-102.0); Mean Platelet Volume 8.9 fl (8.7-11.0); Monocytes Absolute Auto 0.59 K/mm3 (0.10-0.90); Monocytes Percent Auto 8.6 % (2.0-11.0); Neutrophils Absolute Auto 4.26 K/mm3 (1.70-7.20); Neutrophils Percent Auto 62.2 % (50.0-70.0); Platelet Count Result 173 K/mm3 (150-420); Red Blood Count 4.48 M/mm3 (4.70-6.10); Red Cell Distribution Width 12.5 % (11.6-14.4); White Blood Count 6.9 K/mm3 (4.8-10.8)
[2024-07-24 15:22] LABS: Occult Blood Negative (Negative)
[2024-07-24 15:50] LABS: Toxigenic C. Diff POSITIVE (NEGATIVE)
[2024-07-24 15:57] LABS: Alanine Aminotransferase 28 U/L (16-63); Albumin Level 3.7 g/dL (3.4-5.0); Alkaline Phosphatase 63 U/L (46-116); Anion Gap 10 mmol/L (4-12); Aspartate Amino Transferase 15 U/L (15-37); Bilirubin,Total 0.5 mg/dL (0.00-1.00); Blood Urea Nitrogen 19 mg/dL (7-18); Calcium 9.3 mg/dL (8.5-10.1); Carbon Dioxide 28 mmol/L (21-32); Chloride 104 mmol/L (98-108); Estimated Glomerular Filt Rate > 60; Glucose 103 mg/dL (70-99); Osmolality Calculated 296 mOsm/kg (285-295); Potassium 4.2 mmol/L (3.5-5.1); Sodium 142 mmol/L (136-145); Total Protein 6.9 g/dL (6.4-8.2)
[2024-07-24 16:38] LABS: Hemoglobin A1C 6.1 % (<5.7)
== END 2024-07-24 14:43 | disposition home or self-care (01) ==
PROVIDERS: PCP Nurse Practitioner Family; Visit Provider Nurse Practitioner Family
DX: E11.65 Type 2 diabetes mellitus with hyperglycemia (principal); R19.7 Diarrhea, unspecified
CPT/HCPCS: 36415; 80053; 82272; 83036; 84443; 85025; 87045; 87427; 87449; 87493

== ENCOUNTER 2024-11-28 08:54 | Outpatient (CLI) | payer MEDICARE, MEDICAID, SELFPAY ==
--- NOTE | ~2024-11-28 | CT_ITS ---
EXAMINATION: CT IAC/mastoids BI wo con DATE: 11/28/2024 09:44 INDICATION: Cholesteatoma of attic, unspecified. TECHNIQUE: Computed tomography (CT) of the temporal bones was performed without intravenous contrast. Automated exposure control and iterative reconstruction technique were employed. The dose-length pro duct was 272.53 mGy-cm. COMPARISON: None FINDINGS: There is mucosal thickening in the paranasal sinuses. RIGHT TEMPORAL BONE: The internal auditory canal, cochlea, vestibule, semicircular canals, vestibular aqueduct, carotid ca nal, jugular bulb, facial nerve course, ossicles, tympanic membrane, Prussak space, scutum, mastoid a ir cells, and external auditory canal are normal. LEFT TEMPORAL BONE: The internal auditory canal, cochlea, vestibule, semicircular canals, vestibular aqueduct, carotid ca nal, jugular bulb, facial nerve course, and ossicles are normal. There is material in the tympanic ca vity including abutting the ossicles and in Prussak space. There is blunting of scutum. There is thic kening of the tympanic membrane. The mastoid air cells and external auditory canal are normal. IMPRESSION: 1. Material in the left tympanic cavity with erosions of scutum, consistent with cholesteatoma versus chronic otitis media. Reviewed, dictated and finalized at location A. DRIER OPERATOR IMPRESSION: 1. Material in the left tympanic cavity with erosions of scutum, consistent wit h cholesteatoma versus chronic otitis media.
--- OUTSIDE RECORDS SUMMARY | 2024-11-28 09:22 | XMS_ITS | Clinical Summary ---
Author Organization [facility] Address [address] [place] [address] Care Team Providers Care Fun House Operator Name Role Phone SharriLyle lara DO Primary Care Provider [phone] Gris Branham [facility]- Unavailable [phone] Allergies No known active allergies Medications Terazosin HCl 10 MG Cap Take 1 capsule (10 mg total) by mouth nightly at bedtime. Active HYDROCORTISONE, TOPICAL, 2 % Lotion Apply topically as needed. apply sparingly to affected area(s) Active fenofibrate 145 MG tablet Take 145 mg by mouth nightly. Active semaglutide (OZEMPIC, 1 MG/DOSE,) 2 MG/1.5ML injection (PEN) Inject 2 mg into the skin every 7 days. Active lisinopril (PRINIVIL) 5 MG tablet Take 1 tablet (5 mg total) by mouth nightly. 4 Active metoprolol succinate ER (TOPROL-XL) 50 MG 24 hr tablet Take 1 tablet (50 mg total) by mouth daily. 90 tablet 3 4 Active nitroglycerin (NITROSTAT) 0.[address] 1 tablet (0.4 mg total) under the tongue every 5 (five) minutes as needed. 25 tablet 1 4 Active aspirin EC (ECOTRIN) 81 MG tablet Take 1 tablet (81 mg total) by mouth daily. 90 tablet 3 4 Active rosuvastatin (CRESTOR) 20 MG tablet TAKE 1 TABLET(20 MG) BY MOUTH EVERY NIGHT AT BEDTIME 90 tablet 1 4 Active Active Problems Problem Noted Date Diagnosed Date Lumbar spondylosis 06/16/2023 Left hip pain 02/02/2023 Spinal stenosis of lumbar re gion with neurogenic claudication 02/02/2023 Left shoulder pain 09/03/2022 Morbid (severe) obesity due to excess calories ([facility]) 05/10/2022 S/P drug eluting coronary stent placement 2021 Coronary artery disease invo lving [place] coronary artery of [place] heart without angina pectoris 05/26/2017 Essential hypertension 05/26/2017 Precordial pain 05/26/2017 Dyslipidemia 05/26/2017 COPD (chronic obstructive pu lmonary disease) ([facility]) 05/26/2017 MARTIN (dyspnea on exertion) Atypical chest pain HTN (hypertension) Resolved Problems Problem Noted Date Diagnosed Date Resolved Date Unstable angina ([facility]) 04/12/2022 05/20/2024 Family History Medical History Relation Comments Heart Attack Father Heart Attack Mother Relation Status Comments Father [place] age 70 Mother [place] age 40 Social History Tobacco Use Types Packs/Day Years Used Date Smoking Tobacco: Former Cigarettes Q uit: 09/26/2007 Smokeless Tobacco: Never Tobacco Cessation:Counseling Given: Not Answered Alcohol Use Standard Drinks/Week Comments No 0 (1 standard drink = 0.6 oz pur e alcohol) Sex and Gender Information Value Date Recorded Sex Assigned at Not on file Legal Sex Male 1:34 AM CDT Gender Identity Not on file Sexual Orientation Not on file Occupation Industry Job Start Date Job End Date Not on file Not on file Not on file Not on file Last Filed Vital Signs Vital Sign Reading Time Taken Comments Blood Pressure 116/76 05/14/2024 11:03 AM CDT Pulse 72 05/14/2024 11:03 AM CDT Temperature 36.3 C (97.3 F) 04/21/2022 11:26 AM CDT Respiratory Rate 16 05/14/2024 11:03 AM CDT Oxygen Saturation 97% 05/14/2024 11:03 AM CDT Inhaled Oxygen Concentration - - Weight 92.1 kg (203 lb) 05/14/2024 11:03 AM CDT Height 163.2 cm (5' 4.25 ) 05/14/2024 11:03 AM C DT Body Mass Index 34.57 05/14/2024 11:03 AM CDT Plan of Treatment Health Maintenance Due Date Last Done Comments Colorectal Cancer Screening Colonoscopy (10 Years) 1950 Hepatitis C 1966 DTaP, Tdap and Td Vaccines (1 - Tdap) 12/29/1967 Zoster Vaccines (1 of 2) 1998 AAA SCREENING 2013 Annual Medicare Wellness Visit 2013 Pneumococcal Vaccine: 65+ Years (2 of 2 - PPSV23 or PCV20) 08/25/2020 06/30/2020 RSV Immunization or 60+ Years (1 - 1-dose 75+ series) 12/29/2023 COVID-19 Vaccine (3 - season) 2024 11/19/2020, 10/29/2020 Influenza Adult (#1) 2024 ASCVD LDL 10/25/2024 10/25/2023, 02/24, 02/16/2021, Additional history exists Meningococcal B Vaccine Aged Out No l onger eligible based on patient's age to complete this topic Meningococcal Vaccine Aged Out No jean john eligible based on patient's age to complete this topic RSV Immunizations Under 20 Months Aged Out No longer eligible based on patient's age to complete this topic Medical Devices Implanted Type Area Storeroom Clerk Device Identifier Shelf Expiration Date Model / Serial / Lot Cv Synergy Gary Mid Lad Stent-04/21/20 22 Implanted:Qty : 1 on 04/21/2022 by Magdi Peralta MD Stent Coronary LAD Dasdak CHRIS 12/21/2023 [id number] / / [id number] Procedures Procedure Name Priority Date/Time Associated Diagnosis Comments LIPID PANEL Routine 10/25/2023 from Last 3 Months or Most Recently Relevant to Health Maintenance Results * LIPID PANEL (10/25/2023) CHOLESTEROL 144 HDL 46 TRIGLYCERIDES 87 LDL (CALCULATED) 81 10/25/2023 us Default History Genericprovider LABORATORY Final Result from Last 3 Months or Most Recently Relevant to Health Maintenance Insurance MEDICAID [facility] MEDICAID Advance Directives * Full Code (Latest Code Status on File) Date Activated Date Inactivated Comments 04/21/2022 3:27 PM 04/21/2022 8:35 PM Care Teams Fun House Operator Relationship Specialty Start Date End Date Lyle Sheppard DO [address] [place] [address] PCP - General FAMILY PRACTICE 10/25/23 Gris Branham, ANP- [address] [facility] [address] [place] [id number] NURSE PRACTITIONER ADULT HEALTH 10/25/23
--- OUTSIDE RECORDS SUMMARY | 2024-11-28 09:23 | XMS_ITS ---
Author Organization [facility] Address [address] [facility] [address] [place], [place] [address] Care Team Providers Care Sealing Machine Operator Name Role Phone RONALD RENNER Unavailable [phone] Lyle Sheppard Unavailable Unavailable RONALD HUBBARD Unavailable [phone] Allergies No Known Allergies REASON FOR VISIT Patient presents with painful toenails of both feet. They cause pain with shoes and ambulation. Theonset was gradual. 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, bilateral legs I70.213 and Type 2 diabetes mellitus with other circulatory complications E11.59 Assessments Encounter Date Diagnosis (ICD Code) Assessment Notes Treatment Notes Treatment Clinical Notes Section Notes 04/23/2024 Tinea unguium (ICD-10 - B35.1) NAIL DEBRIDEMENT: Nails 1-5 Bilateral were debrided extensively with nail nippers and emery board, reducing length and girth to pink healthy tissue with any subungual debris and necrotic tissue removed 04/23/2024 Pain in right toe(s) (ICD-10 - M79.674) 04/23/2024 Pain in left toe(s) (ICD-10 - M79.675) 04/23/2024 Atherosclerosis of ute mountain arteries of extremities with intermittent claudication, bilateral legs (ICD-10 - I70.213) 04/23/2024 Type 2 diabetes mellitus with other circulatory complications (ICD-10 - E11.59) Diabetic Foot Care: The patient was educated on diabetes and the lower extremity. The patient was instructed to check his feet daily to report any problems or signs of infection immediately. The patient was provided written information on Diabetic Foot Care as well as the Amputation Prevention Guide. Plan Of Treatment Treatment Notes Assessment Notes Tinea unguium NAIL DEBRIDEMENT: Na ils 1-5 Bilateral were debrided extensively with nail nippers and emery board, reducing length and girth to pink healthy tissue with any subungual debris and necrotic tissue removed Type 2 diabetes mellitus wit h other circulatory complications Diabetic Foot Care: The patient was educated on diabetes and the lower extremity. The patient was instructed to check his feet daily to report any problems or signs of infection immediately. The patient was provided written information on Diabetic Foot Care as well as the Amputation Prevention Guide. Next Appt Details Follow Up: 10-12 Weeks, Reas on: At risk foot care, sooner if problems arise Provider Name:RONALD GARCÍA, 12/27/2024 08:20:00 AM, [address], [address], [id number], Progress Notes * LATASHA DUKES ADOB: [birth year] (73 yo M)Acc No.[id number]:04/23/2024 Patient: LATASHA JOLLY Provider: Lele Hubbard DPM :1950 A ge:73 Y S ex:Male Date:04/23/2024 Address:[address] [place] [address] Subjective: * Chief Complaints: * 1 . Patient presents with painful toenails of both feet. They cause pain with shoes and ambulation. The onset was gradual. The patient has diabetes mellitus. * HPI: H PI: General care P atient presents to the office for diabetic foot care. Patient states that their nails are thickened, elongated and painful. Patient states that it is aggravated by shoe gear. Onset is gradual., Patient denies taking prescription blood thinners but does take a daily aspirin., Date last seen by Dr. Sheppard was February 2024., Initials LB. * ROS: G eneral / Constitutional: Patient [...] Medicationlisinopril 5 MG Oral Tablet *Reorder from Mobile Safe Case for eRx and Interaction Alerts* * Allergies: N .K.D.A. Objective: * Examination: C onstitutional: Constitutional T he patient is awake, alert, well developed, well groomed and well nourished. D ermatologic: Skin findings: S kin is thin, atrophic and lacking pedal hair. Nail pathology: N ails 1-5 bilateral are elongated, thick, discolored, and dystrophic with subungual debris. They are painful to palpation. ? V ascular: Dorsalis pedis pulse: 0 /4, bilateral. Posterior tibial pulse: 1 /4, bilaterally. Capillary refill: g reater than 3 seconds. Edema: N o edema, bilateral. N eurologic: Gross sensation G ross sensation is intact to light touch.? M usculoskeletal: Muscle Strength M uscle strength is 5/5 in regards to dorsiflexion, plantarflexion, inversion, and eversion in bilateral lower extremities. ? Assessment: * Assessment: 1. T inea unguium - B35.1 (Primary) 2 . P ain in right toe(s) - M79.674 3 . P ain in left toe(s) - M79.675 4 . A therosclerosis of ute mountain arteries of extremities with intermittent claudication, bilateral legs - I70.213 5 . T ype 2 diabetes mellitus with other circulatory complications - E11.59 Plan: * Treatment: 2. T ype 2 diabetes mellitus with other circulatory complications Notes: Diabetic Foot Care: The patient was educated on diabetes and the lower extremity. The patient was instructed to check his feet daily to report any problems or signs of infection immediately. The patient was provided written information on Diabetic Foot Care as well as the Amputation Prevention Guide. * Follow Up: 1 0-12 Weeks (Reason: At risk foot care, sooner if problems arise) * Billing Information: * Visit Code: 42433 Office Visit, Est Pt., Level 3. * Procedure Codes: * Sign off status: Completed true * Provider: Lele Hubbard DPM Date: 0 04/23/2024 Generated for Demarcus everett/Taryn/Lalo on: 0 11/28/2024 09:22 AM [employer]NAGER [employer] History and Physical Notes * HPI (History of Present Illness) Category Sub-Category Detail Notes Category Not es HPI General care Patient presents to the office for diabetic foot care. Patient states that their nails are thickened, elongated and painful. Patient states that it is aggravated by shoe gear. Onset is gradual., Patient denies taking prescription blood thinners but does take a daily aspirin., Date last seen by Dr. Sheppard was February 2024., Initials LB Examination Category Sub-Category Detail Notes Category Not es Dermatologic Skin findings: Skin is thin, at rophic and lacking pedal hair Nail pathology: Nails 1-5 bilateral are elongated, thick, discolored, and dystrophic with subungual debris. They are painful to palpation Neurologic Gross sensation Gross sensation is intact to light touch Vascular Dorsalis pedis pulse: 0/4, bilateral Edema: No edema, bilateral Capillary refill: greater than 3 secon ds Posterior tibial pulse: 1/4, bilaterally Musculoskeletal Muscle Strength Muscle strength is 5/5 in regards to dorsiflexion, plantarflexion, inversion, and eversion in bilateral lower extremities Constitutional Constitutional The patient is a wake, alert, well developed, well groomed and well nourished
--- OUTSIDE RECORDS SUMMARY | 2024-11-28 09:23 | XMS_ITS | Encounter Summary ---
Author Organization [facility] Address [address] [place] [address] Care Team Providers Care Cyber Defense Forensics Analyst Name Role Phone Gopi Pollock MD Primary Care Provider Unava ilable Andrew Giron MD, Anthony Unavailable [phone] Sharif Pickering MD Primary Care Provider [phone] Fidencio Gerardo MD Primary Care Provider [phone] Lyle Sheppard DO Primary Care Provider [phone] Gris Branham [facility] Unavailable [phone] Encounter Details Date Type Department Care Team (Late st Contact Info) Description 05/25/2017 Abstract [facility] [address] [place] [id number] Anthony Morales MD [address] [facility] [address] [place] [address] Social History Tobacco Use Types Packs/Day Years Used Date Smoking Tobacco: Former Sex and Gender Information Value Date Recorded Sex Assigned at Not on file Legal Sex Male 1:34 AM CDT Gender Identity Not on file Sexual Orientation Not on file documented as of this encounter Plan of Treatment Not on file documented as of this encounter Visit Diagnoses Not on filedocumented in this encounter Additional Health Concerns Infection Onset Date Last Indicated Resolved Time COVID-19 Rule Out 02/10/2021 02/10/2021 02/10/2021 7:47 PM CDT documented as of this encounter Care Teams Cyber Defense Forensics Analyst Relationship Specialty Start Date End Date Gopi Pollock MD PCP - General WINDOW MAKER 05/26/17 12/17/20 Sharif Pickering MD PCP - General FAMILY PRACTICE 12/18/20 02/17/21 Fidencio Gerardo MD [address] [place] [id number] PCP - General INTERNAL MEDICINE 02/18/21 10/24/23 Lyle Sheppard DO [address] [place] [address] PCP - General FAMILY PRACTICE 10/25/23 Anthony Morales MD CARDIOVASCULAR DISEASE 05/26/17 4 Gris Branham, ANP- [address] [facility] [address] [place] [address] NURSE PRACTITIONER ADULT HEALTH 10/25/23 documented as of this encounter
--- OUTSIDE RECORDS SUMMARY | 2024-11-28 09:23 | XMS_ITS | Encounter Summary ---
Author Organization [facility] Address [address] [place] [address] Care Team Providers Care Ton Cylinder Inspector Name Role Phone Andrew Giron MD, Anthony Unavailable [phone] Fidencio Gerardo MD Primary Care Provider [phone] Lyle Sheppard DO Primary Care Provider [phone] Gris Branham [facility] Unavailable [phone] Encounter Details Date Type Department Care Team (Late st Contact Info) Description 04/14/2022 Pre-Procedure Call [facility] Advocate Contact Pre/Post [address] [place] [address] Magdi Peralta MD [address] [facility] [address] [place] [address] Social History Tobacco Use Types Packs/Day Years Used Date Smoking Tobacco: Former Cigarettes Q uit: 09/26/2007 Smokeless Tobacco: Never Alcohol Use Standard Drinks/Week Comments No 0 [...] file Not on file Not on file COVID-19 Exposure Response Date Recorded In the last 10 days, have yo u been in contact with someone who was confirmed or suspected to have Coronavirus/COVID-19? Unable to assess 04/12/2022 7:33 AM CDT documented as of this encounter Plan of Treatment Not on file documented as of this encounter Visit Diagnoses Not on filedocumented in this encounter Care Teams Ton Cylinder Inspector Relationship Specialty Start Date End Date Fidencio Gerardo MD [address] [place] [address] PCP - General INTERNAL MEDICINE 02/18/21 10/24/23 Lyle Sheppard DO [address] [place] [address] PCP - General FAMILY PRACTICE 10/25/23 Anthony Morales MD CARDIOVASCULAR DISEASE 05/26/17 4 Gris Branham, ANP- [address] [facility] [address] [place] [address] NURSE PRACTITIONER ADULT HEALTH 10/25/23 documented as of this encounter
--- OUTSIDE RECORDS SUMMARY | 2024-11-28 09:23 | XMS_ITS | Data Portability ---
Author Organization [facility], Main Office Address [address] [place] [address] Assessment No assessment recorded. Plan of Treatment Reminders Order Date Submit Date Provider Last Modified By Organization Details Last Modified Time Details Appointments None recorded. Lab None recorded. Referral None recorded. Procedures None recorded. Surgeries None recorded. Imaging None recorded. Medication Orders Ciprodex 0.3 %-0.1 % ear drops,susp ension 2022 023 [id number], [address] [place], [place], [id number], 3 11:48:56 Patient TargetsNo targets recorded. Patient InstructionsNo instructions recorded. Reason for Referral None Reported. Problems Name Problem SNOMED Code Status Onset Date Resolution Date Notes Provider Name and Address Organization Details Recorded Time Chronic serous otitis media of left ear 356677654 Active 023 Toan Garcia MD [address] [place] [address], [place], [address] , [facility] [employer] 3 11:48:32 Problem Notes None recorded. Medical Equipment None Reported. Allergies No known drug allergies Medications Name Sig Start Date Stop Date Status Note LastModified by Organization Details LastModified Time carvedilol 12.5 mg tablet TAKE 1 TABLET BY MOUTH EVERY 12 HOURS. ADMINISTE R WITH MEALS/RAVI D active Not Available Not Available No t Available prednisone 20 mg tablet TAKE 2 TABLETS BY MOUTH DAILY FOR 5 DAYS 12/23 completed Not Available Not Available Not Available clopidogrel 75 mg tablet TAKE 1 TABLET BY MOUTH DAILY active Not Available Not Available No t Available aspirin 81 mg tablet,donald yed release TAKE 1 TABLET BY MOUTH DAILY active Not Available Not Available No t Available isosorbide mononitrate ER 60 mg tablet,exte nded release 24 hr TAKE 1 TABLET BY MOUTH DAILY active Not Available Not Available No t Available ofloxacin 0.3 % ear drops INSTILL 10 DROPS INTO EACH EAR DAILY FOR 7 DAYS 12/23 completed Not Available Not Available Not Available metformin 1,000 mg tablet TAKE 1 TABLET BY MOUTH TWICE DAILY 12/23 completed Not Available Not Available Not Available buspirone 10 mg tablet TAKE 1 TABLET BY MOUTH THREE TIMES DAILY 12/23 completed Not Available Not Available Not Available lisinopril 10 mg tablet TAKE 1 TABLET BY MOUTH DAILY 12/23 completed Not Available Not Available Not Available nitroglycer in 0.4 mg sublingual tablet active Not Available Not Available Not Available hydroxyzine HCl 25 mg tablet TAKE 1 TABLET BY MOUTH THREE TIMES DAILY NEEDED FOR ANXIETY 12/23 completed Not Available Not Available Not Available lisinopril 5 mg tablet active Not Available Not Available Not Available levofloxaci n 750 mg tablet TAKE 1 TABLET BY MOUTH DAILY 12/23 completed Not Available Not Available Not Available methylpredn isolone 4 mg tablets in a dose pack FOLLOW PACKAGE DIRECTION S 12/23 completed Not Available Not Available Not Available sertraline 50 mg tablet TAKE 1 TABLET BY MOUTH DAILY active Not Available Not Available No t Available terazosin 10 mg capsule TAKE 1 CAPSULE BY MOUTH DAILY active Not Available Not Available No t Available ciprofloxac in 0.3 %-dexametha sone 0.1 % ear drops,suspe nsion SHAKE LIQUID AND INSTILL 4 DROPS TO AFFECTED EAR TWICE DAILY FOR 7 DAYS active Not Available Not Available No t Available rosuvastati n 20 mg tablet TAKE 1 TABLET BY MOUTH DAILY 12/23 completed Not Available Not Available Not Available Zoloft active Not Available Not Availa ble Not Available fenofibrate nanocrystal lized 145 mg tablet TAKE 1 TABLET BY MOUTH DAILY 12/23 completed Not Available Not Available Not Available Farxiga 10 mg tablet TAKE 1 TABLET BY MOUTH DAILY active Not Available Not Available No t Available Ozempic 1 mg/dose (4 mg/3 mL) subcutaneou s pen injector INJECT 1 MG UNDER THE SKIN WEEKLY X 4 DOSES active Not Available Not Available No t Available BinaxNOW COVID-19 Ag Self Test kit Use as Directed on the Package 12/23 completed Not Available Not Available Not Available Ozempic 2 mg/dose (8 mg/3 mL) subcutaneou s pen injector INJECT 2 MG UNDER THE SKIN EVERY WEEK active Not Available Not Available No t Available Vitals Date Recorded Body weight Body mass index (BMI) Body height Body temperature Provider Name and Address Organization Details Last Updated DateTime 12/23/2022 91882.76 g 32.2 kg/m2 165.1 cm 97.8 [degF] Griselda Santo RN [facility] [employer] 12/23/2022 11:34:31 Social History Question Answer Notes LastModified by Organizat ion Details LastModified Time Tobacco Smoking Status Former Smoker Nadia Chavarrialins, TELEVISION NEWS REPORTER null, [place] [employer] [facility] [employer] 12/22/2022 12:09:08 What Is Your Level Of Alcohol Consumption? None [email or web address] Information not available 12/22/2022 Sex: Unknown Functional Status None recorded. Mental Status None recorded. Family History Nothing Reported. Medical History Condition Response MRSA N ALLERGIES/HAYFEVER N BACK INJECTIONS N LUNG DISEASE/DISORDER N ESRD N HISTORY OF DRUG ABUSE N INSOMNIA N RADIATION / CHEMOTHERAPY N COPD N HIGH CHOLESTEROL / HYPERLIPIDEMIA N HYPERTHYROIDISM N PVD N BLOOD DISEASES N EAR OR HEARING PROBLEMS N HYPOTHYROIDISM N SHINGLES N DEPRESSION (INCLUDING POST ) N BACK / NECK PROBLEMS N HAVE YOU BEEN HOSPITALIZED OR SEEN IN [facility] ER IN THE PAST YEAR ? N FAILED BACK SYNDROME N STROKE/TIA N POLYCYSTIC OVARIES N OBESITY N ANEURYSM N HISTORY WITH COMPLICATIONS WITH ANESTHES IA ? N Do you have Advance directive? N USE OF BLOOD THINNERS Y NO SIGNIFICANT PAST MEDICAL HISTORY N DIABETES, TYPE N VON WILLIBRAND'S DISEASE N PARATHYROID DISEASE N ENT N SEASONAL ALLERGIES N HEARTBURN / REFLUX N POST LAMINECTOMY SYNDROME N HEPATITIS / LIVER DISEASE N SLEEP DISORDER N ARTERIAL INSUFFICIENCY N SEIZURES/EPILEPSY N HEADACHES/MIGRAINES N CHF N PACEMAKER N DIZZINESS N HEART DISEASE/HEART PROBLEMS Y AIDS/HIV N NEUROPSYCHOLOGICAL N HYPERTENSION N CANCER: SPECIFY N TOURETTE'S N BLOOD TRANSFUSION N ANEMIA/BLOOD DISORDER N ANESTHESIA COMPLICATIONS N CHRONIC EAR INFECTIONS N ATRIAL FIBRILLATION N AUTOIMMUNE DISEASE N TUBERCULOSIS N Past Encounters Encounter ID Performer Location Encounter Start Date Encounter Closed Date Diagnosis/Indication Diagnosis SNOMED-CT Code Diagnosis ICD10 Code Diagnosis Note [id number] Toan Garcia MD [facility] [place] [address] [place] [address] 12/23/2022 11:28:13 12/23/2022 11:49:58 Chronic serous otitis media of left ear 783722125 H65.22 Health Concerns Section Related Observation LastModified by Organization Detai ls LastModified Time None Recorded Concern Status LastModified by Organization Details LastModified Time None Recorded Advance Directives Directive None Recorded Payers Encounter Date Sequence Insurance Name Policy Number Policy Field Covered Member ID Field Member ID Guarantor Name 12/23/[address] [facility] (MEDICARE REPLACEMENT/A DVANTAGE - PPO) [id number] Anthony Chance [id number] Anthony Chance 12/23/2022 2 [place] [facility] Anthony Chance [id number] Anthony Chance Notes Date Note Type Note Provider Name and Address Organization Details Recorded Time 12/23/2022 text/html this patient has a lifelong left-sided tympanic membrane perforation. Recently it has become painful and has been draining this he attributes to starting Toan Garcia MD [address] [place] [address], [place] [address], [place], [address], [place] [facility] [employer] 12/23/2022 11:49:08
--- OUTSIDE RECORDS SUMMARY | 2024-11-28 09:23 | XMS_ITS | Patient Health Record ---
Author Organization [facility] Address [address] [facility] [address] [place], [place] [phone] Care Team Providers Care Jewelry Coater Name Role Phone DOUGLASRAQUEL RONALD Unavailable [phone] Lyle Sheppard Unavailable Unavailable STEVIE RONALD Unavailable [phone] Allergies No Known Allergies Reason For Referral No Information Vital Signs Height-cm 167.64 cm 10/25/2024 Weight-kg 99.79 kg 10/25/2024 Height 66.00 in 10/25/2024 Weight 220 lbs 10/25/2024 BMI 35.51 kg/m2 10/25/2024 Encounters Encounter Location Date Provider Diagnosis [facility] [place] [address] [place] [id number] 02/06/2024 RONALD HUBBARD Tinea unguium B35.1 ; Acquired keratosis [keratoderma] palmaris et plantaris L85.1 ; Type 2 diabetes mellitus with other circulatory complications E11.59 ; Pain in right toe(s) M79.674 and Pain in left toe(s) M79.675 [facility] [place] [address] [place] [id number] 02/17/2024 RONALD RENNER Tinea unguium B35.1 ; 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 ; Acquired keratosis [keratoderma] palmaris et plantaris L85.1 ; Type 2 diabetes mellitus with other circulatory complications E11.59 ; Pain in right toe(s) M79.674 and Pain in left toe(s) M79.675 [facility] [place] [address] [place] [id number] 04/23/2024 RONALD SALVADOR Tinea unguium B35.1 ; Pain in right toe(s) M79.674 ; Pain in left toe(s) M79.675 ; Atherosclerosis of [place] arteries of extremities with intermittent claudication, bilateral legs I70.213 and Type 2 diabetes mellitus with other circulatory complications E11.59 [facility] [place] [address] [place], [place] [id number] 10/25/2024 RONALD DOUGLASRAQUEL Tinea unguium B35.1 ; Pain in right toe(s) M79.674 ; Pain in left toe(s) M79.675 ; Atherosclerosis of [place] arteries of extremities with intermittent claudication, bilateral legs I70.213 and Type 2 diabetes mellitus with other circulatory complications E11.59 Assessments Encounter Date Diagnosis (ICD Code) Assessment Notes Treatment Notes Treatment Clinical Notes Section Notes 02/06/2024 Tinea unguium (ICD-10 - B35.1) Nails 1-5 Bilateral were debrided extensively with nail nippers and emery board, reducing length and girth to pink healthy tissue with any subungual debris and necrotic tissue removed 02/06/2024 Acquired keratosis [keratoderma] palmaris et plantaris (ICD-10 - L85.1) A total of 4 corns or calluses, as described in the note above, were cut and pared utilizing a #15 blade 02/17/2024 Tinea unguium (ICD-10 - B35.1) 02/17/2024 Non-pressure chronic ulcer of other part of left foot limited to breakdown of skin (ICD-10 - L97.521) 04/23/2024 Tinea unguium (ICD-10 - B35.1) NAIL DEBRIDEMENT: Nails 1-5 Bilateral were debrided extensively with nail nippers and emery board, reducing length and girth to pink healthy tissue with any subungual debris and necrotic tissue removed 04/23/2024 Pain in right toe(s) (ICD-10 - M79.674) 10/25/2024 Tinea unguium (ICD-10 - B35.1) NAIL DEBRIDEMENT: Nails 1-5 Bilateral were debrided extensively with nail nippers and emery board, reducing length and girth to pink healthy tissue with any subungual debris and necrotic tissue removed 04/23/2024 Pain in left toe(s) (ICD-10 - M79.675) 10/25/2024 Pain in right toe(s) (ICD-10 - M79.674) 02/17/2024 Acquired keratosis [keratoderma] palmaris et plantaris (ICD-10 - L85.1) 02/06/2024 Type 2 diabetes mellitus with other circulatory complications (ICD-10 - E11.59) 02/06/2024 Pain in right toe(s) (ICD-10 - M79.674) 02/17/2024 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 02/17/2024 Pain in right toe(s) (ICD-10 - M79.674) 02/06/2024 Pain in left toe(s) (ICD-10 - M79.675) 02/17/2024 Pain in left toe(s) (ICD-10 - M79.675) 10/25/2024 Type 2 diabetes mellitus with other circulatory complications (ICD-10 - E11.59) Diabetic Foot Care: The patient was educated on diabetes and the lower extremity. The patient was instructed to check his feet daily to report any problems or signs of infection immediately. The patient was provided written information on Diabetic Foot Care as well as the Amputation Prevention Guide. 02/17/2024 Other Slant Back Toenail: Following skin prep, the offending nail border was debrided without anesthesia. The patient was instructed on monitoring for infection or recurrence. Plan Of Treatment Next Appt Details Provider Name:RONALD COLE RAQUEL, 12/27/2024 08:20:00 AM, [address] [facility] [address], [place], [place], [id number], Insurance Providers Payer Name Payer Address Payer Phone Subscriber Number Group Number Insured Name Patient Relationship to Insured Coverage Start Date Coverage End Date [facility] [address] [address] [place] [id number] LATASHA DUKES Self - patient is the insured
--- OUTSIDE RECORDS SUMMARY | 2024-11-28 09:23 | XMS_ITS ---
Author Organization [facility] Address [address] [facility] [address] [place], [place] [phone] Care Team Providers Care Octave Board Racker Name Role Phone DOUGLASRAQUEL RONALD Unavailable [phone] Lyle Sheppard Unavailable Unavailable RONALD HUBBARD Unavailable [phone] REASON FOR VISIT *General care Encounters Encounter Location Date Provider Diagnosis [facility] [place] [address] [facility] [address] [place], [place] [phone] 06/25/2024 RONALD HUBBARD Plan Of Treatment Next Appt Details Provider Name:RONALD GARCÍA, 12/27/2024 08:20:00 AM, [address], [place], [place], [phone], Progress Notes * LATASHA DUKES ADOB: [birth year] (73 yo M)Acc No.[id number]:06/25/2024 Patient: Soo LATASHA GAO Provider: Lele Hubbard DPM :1950 A ge:73 Y S ex:Male Date:06/25/2024 Address:[address] [place], [place] [phone] Subjective: * Chief Complaints: * 1 . *General care. * Medical History: Objective: * Vitals: Assessment: Plan: * Treatment: * Billing Information: * Visit Code: * Procedure Codes: * Electronic signature of RONALD HUBBARD DPM on 11/28/2024 at 09:23 AM DELICATESSEN CLERK Sign off status: Pending * Provider: Lele Hubbard DPM Date: 0 06/25/2024 Generated for Demarcus everett/Taryn/Misaelitting on: 0 11/28/2024 09:23 AM DELICATESSEN CLERK
--- OUTSIDE RECORDS SUMMARY | 2024-11-28 09:23 | XMS_ITS | Encounter Summary ---
Author Organization [facility] Address [address] [place] [address] Care Team Providers Care Warehouse Insulation Worker Name Role Phone Lyle Sheppard DO Primary Care Provider [phone] Gris Branham [facility]- Unavailable [phone] Encounter Details Date Type Department Care Team (Late st Contact Info) Description 10/26/2023 Abstract [facility] [address] [place] [phone] Abstract, Doc Pccl Social History Tobacco Use Types Packs/Day Years [...] file Not on file Not on file documented as of this encounter Plan of Treatment Not on file documented as of this encounter Procedures Procedure Name Priority Date/Time Associated Diagnosis Comments CBC (OUTSIDE LAB) Routine 10/25/2023 BASIC METABOLIC PANEL Routine 10/25/2023 LIPID PANEL Routine 10/25/2023 documented in this encounter Results * LIPID PANEL (10/25/2023) CHOLESTEROL 144 HDL 46 TRIGLYCERIDES 87 LDL (CALCULATED) 81 10/25/2023 us Default History Genericprovider LABORATORY Final Result * (ABNORMAL) BASIC METABOLIC PANEL (10/25/2023) SODIUM S/P/B 141 POTASSIUM S/P/B 4.9 CO2 33 CHLORIDE S/P/B 102 GLUCOSE 111 mg/dL CALCIUM S/P/B 9.2 BUN 25 CREATININE S/P/B 1.31(A) 0.7 - 1.3 EGFR AFR. AMER. 53 <=90 EGFR NON-AFR. AMER. 53 <=90 AST 12 ALT 28 10/25/2023 us Default History Genericprovider LABORATORY Edited Result - Final * (ABNORMAL) CBC (OUTSIDE LAB) (10/25/2023) WBC 6.9 HGB 14.9 HCT 44.6 PLT 171 RBC 4.84 10/25/2023 us Default History Genericprovider LAB-OUTSIDE/ABST RACTED Edited Result - Final documented in this encounter Visit Diagnoses Not on filedocumented in this encounter Care Teams Warehouse Insulation Worker Relationship Specialty Start Date End Date Lyle Sheppard DO [address] [place] [address] PCP - General FAMILY PRACTICE 10/25/23 Gris Branham, ANP- [address] [facility] [address] [place] [address] NURSE PRACTITIONER ADULT HEALTH 10/25/23 documented as of this encounter
--- OUTSIDE RECORDS SUMMARY | 2024-11-28 09:23 | XMS_ITS ---
Author Organization [facility] Address [address] [facility] [address] [place], [place] [phone] Care Team Providers Care Scientist Electronics Name Role Phone RONALD DE LOS SANTOS Unavailable [phone] Lyle Sheppard Unavailable Unavailable REASON FOR VISIT *General care Vital Signs Height 66.00 in 10/25/2024 Weight 220 lbs 10/25/2024 BMI 35.51 kg/m2 10/25/2024 Height-cm 167.64 cm 10/25/2024 Weight-kg 99.79 kg 10/25/2024 Encounters Encounter Location Date Provider Diagnosis [facility] [place] [address] [place], [place] [id number] 10/25/2024 RONALD DE LOS SANTOS Tinea unguium B35.1 ; Pain in right toe(s) M79.674 ; Pain in left toe(s) M79.675 ; Atherosclerosis of [place] arteries of extremities with intermittent claudication, bilateral legs I70.213 and Type 2 diabetes mellitus with other circulatory complications E11.59 Assessments Encounter Date Diagnosis (ICD Code) Assessment Notes Treatment Notes Treatment Clinical Notes Section Notes 10/25/2024 Tinea unguium (ICD-10 - B35.1) NAIL DEBRIDEMENT: Nails 1-5 Bilateral were debrided extensively with nail nippers and emery board, reducing length and girth to pink healthy tissue with any subungual debris and necrotic tissue removed 10/25/2024 Pain in right toe(s) (ICD-10 - M79.674) 10/25/2024 Pain in left toe(s) (ICD-10 - M79.675) 10/25/2024 Atherosclerosis of [place] arteries of extremities with intermittent claudication, bilateral legs (ICD-10 - I70.213) 10/25/2024 Type 2 diabetes mellitus with other [...] GARCÍA, 12/27/2024 08:20:00 AM, [address], [address], [phone], Progress Notes * LATASHA DUKES ADOB: [birth year] (73 yo M)Acc No.[id number]:10/25/2024 Patient: LATASHA JOLLY Provider: Lele De Los Santos DPM :1950 A ge:73 Y S ex:Male Date:10/25/2024 Address:[address] [place], [place] [address] Subjective: * Chief Complaints: * * General care * HPI: H PI: General care P atient presents to the office for diabetic foot care. Patient states that their nails are thickened, elongated and painful. Patient states that it is aggravated by shoe gear. Onset is gradual. Patient denies taking prescription blood thinners but does take a daily aspirin. Date last seen by Dr. Sheppard was 07/2024. Initials sea. * ROS: G eneral / Constitutional: Patient [...] difficulty speaking, dizziness. * Medical History: * Surgical History: * Hospitalization/Major Diagno stic Procedure: * Medications: Objective: * Vitals: W t:220lbs, Wt-k.79 kg, Ht: 66.00 in, Ht-cm: 167.64 cm, BMI:35.51Index, Body Surface Area: 2.15. * Examination: C onstitutional: Constitutional T he [...] P ain in right toe(s) - M79.674? 3. P ain in left toe(s) - M79.675 4 . A therosclerosis of upper [place] arteries of extremities with intermittent claudication, bilateral [...] well as the Amputation Prevention Guide. * Procedure Codes: * Follow Up: 1 0-12 Weeks (Reason: At risk foot care, sooner if problems arise) * Billing Information: * Visit Code: 60778 Office Visit, Est Pt., Level 3. * Procedure Codes: * ICAL PROCESS OPERATOR Sign off status: Completed true * Provider: Lele De Los Santos DPM Date: 0 10/25/2024 Generated for Demarcus everett/Taryn/Lalo on: 0 11/28/2024 09:23 AM CHEMICAL PROCESS OPERATOR History and Physical Notes * HPI (History of Present Illness) Category Sub-Category Detail Notes Category Not es HPI General care Patient presents to the office for diabetic foot care. Patient states that their nails are thickened, elongated and painful. Patient states that it is aggravated by shoe gear. Onset is gradual. Patient denies taking prescription blood thinners but does take a daily aspirin. Date last seen by Dr. Sheppard was 07/2024. Initials sea Examination Category Sub-Category Detail Notes Category [...]
== END 2024-11-28 08:55 | disposition home or self-care (01) ==
LOC: CHSIMG 08:57
PROVIDERS: PCP Nurse Practitioner Family; Visit Provider Otolaryngology Otolaryngology/Facial Plastic Surgery
DX: H71.00 Cholesteatoma of attic, unspecified ear (principal)
CPT/HCPCS: 70480

== ENCOUNTER 2024-11-29 07:20 | Outpatient (CLI) | payer MEDICARE, MEDICAID, SELFPAY ==
--- OUTSIDE RECORDS SUMMARY | 2024-11-29 07:25 | XMS_ITS | Clinical Summary ---
Author Organization [facility] Address [address] [place] [address] Care Team Providers Care Straight Edger Name Role Phone SharriLyle lara DO Primary Care Provider [phone] Gris Branham [facility]- Unavailable [phone] Allergies No known active allergies Medications Terazosin [...] Morbid (severe) obesity due to excess calories ([facility]) 05/10/2022 S/P drug eluting coronary stent placement 2021 Coronary artery disease invo lving [place] coronary artery of [place] heart without angina pectoris 05/26/2017 Essential hypertension 05/26/2017 Precordial pain 05/26/2017 Dyslipidemia 05/26/2017 COPD (chronic obstructive pu lmonary disease) ([facility]) 05/26/2017 MARTIN (dyspnea on exertion) Atypical chest pain HTN (hypertension) Resolved Problems Problem Noted Date Diagnosed Date Resolved Date Unstable angina ([facility]) 04/12/2022 05/20/2024 Family History Medical History Relation Comments Heart Attack Father Heart Attack Mother Relation Status Comments Father PR age 70 Mother PR age 40 Social History Tobacco Use Types [...] this topic Medical Devices Implanted Type Area Automated Equipment Engineer Technician Device Identifier Shelf Expiration Date Model / Serial / Lot Cv Synergy Gary Mid Lad Stent-04/21/20 22 Implanted:Qty : 1 on 04/21/2022 by Magdi Peralta MD Stent Coronary LAD [employer] CHRIS 12/21/2023 [id number] / / [id number] Procedures Procedure Name Priority Date/Time Associated Diagnosis Comments LIPID PANEL Routine 10/25/2023 from Last 3 Months or Most Recently Relevant to Health Maintenance Results * LIPID PANEL (10/25/2023) CHOLESTEROL 144 HDL 46 TRIGLYCERIDES 87 LDL (CALCULATED) 81 10/25/2023 us Default History Genericprovider LABORATORY Final Result from Last 3 Months or Most Recently Relevant to Health Maintenance Insurance MEDICAID [facility] MEDICAID Advance Directives * Full Code (Latest Code Status on File) Date Activated Date Inactivated Comments 04/21/2022 3:27 PM 04/21/2022 8:35 PM Care Teams Straight Edger Relationship Specialty Start Date End Date Lyle Sheppard DO [address] [place] [address] PCP - General FAMILY PRACTICE 10/25/23 Gris Branham, ANP- [address] [facility] [address] [place] [phone] NURSE PRACTITIONER ADULT HEALTH 10/25/23
--- OUTSIDE RECORDS SUMMARY | 2024-11-29 07:25 | XMS_ITS ---
Author Organization [facility] Address [address] [facility] [address] [place], [place] [phone] Care Team Providers Care Care Transition Mgr Name Role Phone DOUGLASRAQUEL RONALD Unavailable [phone] Lyle Sheppard Unavailable Unavailable RONALD HUBBARD Unavailable [phone] REASON FOR VISIT *General care Encounters Encounter Location Date Provider Diagnosis [facility] [place] [address] [facility] [address] [place], [place] [phone] 06/25/2024 RONALD HUBBARD Plan Of Treatment Next Appt Details Provider Name:RONALD GARCÍA, 12/27/2024 08:20:00 AM, [address], [place], [place], [phone], Progress Notes * LATASHA DUKES ADOB: [birth year] (73 yo M)Acc No.[id number]:06/25/2024 Patient: Soo KASSILyricLATASHA Provider: Lele Hubbard DPM :1950 A ge:73 Y S ex:Male Date:06/25/2024 Address:[address] [place], [place] [phone] Subjective: * Chief Complaints: * 1 . *General care. * Medical History: Objective: * Vitals: Assessment: Plan: * Treatment: * Billing Information: * Visit Code: * Procedure Codes: * Electronic signature of RONALD HUBBARD DPM on 11/29/2024 at 07:25 AM MILK COLLECTOR Sign off status: Pending * Provider: Lele Hubbard DPM Date: 0 06/25/2024 Generated for Demarcus everett/Taryn/Misaelitting on: 0 11/29/2024 07:25 AM MILK COLLECTOR
--- OUTSIDE RECORDS SUMMARY | 2024-11-29 07:25 | XMS_ITS ---
Author Organization [facility] Address [address] [facility] [address] [place], [place] [phone] Care Team Providers Care Passenger Car Conductor Name Role Phone RONALD RENNER Unavailable [phone] Lyle Sheppard Unavailable Unavailable RONALD HUBBARD Unavailable [phone] Allergies No Known Allergies REASON FOR VISIT Patient presents with painful toenails of both feet. They cause pain with shoes and ambulation. Theonset was gradual. The patient has diabetes mellitus Medications Medication SIG (Take, Route, Frequency, Duration) Notes Start Date End Date Status Lisinopril 5 MG Oral Tablet lisinopril 5 MG Oral TabletOriginal Medicationlisinopril 5 MG Oral Tablet *Reorder from [employer] for eRx and Interaction Alerts* 10/29/2022 Active Encounters Encounter Location Date Provider Diagnosis [facility] [place] [address] [place], [place] [phone] 04/23/2024 RONALD HUBBARD Tinea unguium B35.1 ; Pain in right toe(s) M79.674 ; Pain in left toe(s) M79.675 ; Atherosclerosis of [place] arteries of extremities with intermittent claudication, bilateral [...] toe(s) (ICD-10 - M79.675) 04/23/2024 Atherosclerosis of [place] arteries of extremities with intermittent claudication, bilateral [...] GARCÍA, 12/27/2024 08:20:00 AM, [address], [address], [id number], Progress Notes * LATASHA DUKES ADOB: [birth year] (73 yo M)Acc No.[id number]:04/23/2024 Patient: LATASHA JOLLY Provider: Lele Hubbard DPM :1950 A ge:73 Y S ex:Male Date:04/23/2024 Address:[address] [place] [address] Subjective: * Chief Complaints: * 1 . [...] Medicationlisinopril 5 MG Oral Tablet *Reorder from [employer] for eRx and Interaction Alerts* * Allergies: [...] - M79.675 4 . A therosclerosis of [place] arteries of extremities with intermittent claudication, bilateral [...] arise) * Billing Information: * Visit Code: 52645 Office Visit, Est Pt., Level 3. * Procedure Codes: * Sign off status: Completed true * Provider: Lele Hubbard DPM Date: 0 04/23/2024 Generated for Demarcus everett/Taryn/Lalo on: 0 11/29/2024 07:25 AM FUR TINTER History and Physical Notes * HPI (History [...]
--- OUTSIDE RECORDS SUMMARY | 2024-11-29 07:25 | XMS_ITS | Patient Health Record ---
Author Organization [facility] Address [address] [facility] [address] [place], [place] [address] Care Team Providers Care Associate Professor Of Biblical Studies Name Role Phone DOUGLASRAQUEL RONALD Unavailable [phone] Lyle Sheppard Unavailable Unavailable STEVIE RONALD Unavailable [phone] Allergies No Known Allergies Reason For Referral No Information Vital Signs Height-cm 167.64 cm 10/25/2024 Weight-kg 99.79 kg 10/25/2024 Height 66.00 in 10/25/2024 Weight 220 lbs 10/25/2024 BMI 35.51 kg/m2 10/25/2024 Encounters Encounter Location Date Provider Diagnosis [facility] [place] [address] [place] [phone] 02/06/2024 RONALD HUBBARD Tinea unguium B35.1 ; Acquired keratosis [keratoderma] palmaris et plantaris L85.1 ; Type 2 diabetes mellitus with other circulatory complications E11.59 ; Pain in right toe(s) M79.674 and Pain in left toe(s) M79.675 [facility] [place] [address] [place] [id number] 02/17/2024 RONALD RENNER Tinea unguium B35.1 ; 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 ; Acquired keratosis [keratoderma] palmaris et plantaris L85.1 ; Type 2 diabetes mellitus with other circulatory complications E11.59 ; Pain in right toe(s) M79.674 and Pain in left toe(s) M79.675 [facility] [place] [address] [place] [id number] 04/23/2024 RONALD SALVADOR Tinea unguium B35.1 ; Pain in right toe(s) M79.674 ; Pain in left toe(s) M79.675 ; Atherosclerosis of [place] arteries of extremities with intermittent claudication, bilateral legs I70.213 and Type 2 diabetes mellitus with other circulatory complications E11.59 [facility] [place] [address] [place], [place] [id number] 10/25/2024 RONALD DOUGLASRAQUEL Tinea unguium B35.1 ; Pain in right toe(s) M79.674 ; Pain in left toe(s) M79.675 ; Atherosclerosis of [place] arteries of extremities with intermittent claudication, bilateral [...] toe(s) (ICD-10 - M79.675) 04/23/2024 Atherosclerosis of [place] arteries of extremities with intermittent claudication, bilateral legs (ICD-10 - I70.213) 10/25/2024 Atherosclerosis of [place] arteries of extremities with intermittent claudication, bilateral [...] Provider Name:RONALD COLE RAQUEL, 12/27/2024 08:20:00 AM, [address], [facility] [address], [place], [place], [id number], Insurance Providers Payer Name Payer Address Payer Phone Subscriber Number Group Number Insured Name Patient Relationship to Insured Coverage Start Date Coverage End Date [facility] [address] [address] [place] [id number] LATASHA DUKES Self - patient is the insured
--- OUTSIDE RECORDS SUMMARY | 2024-11-29 07:26 | XMS_ITS | Encounter Summary ---
Author Organization [facility] Address [address] [place] [address] Care Team Providers Care Dramatic Critic Name Role Phone Gopi Pollock MD Primary Care Provider Unava ilable Andrew Giron MD, Anthony Unavailable [phone] Sharif Pickering MD Primary Care Provider [phone] Fidencio Gerardo MD Primary Care Provider [phone] Lyle Sheppard DO Primary Care Provider [phone] Gris Branham [facility] Unavailable [phone] Encounter Details Date Type Department Care Team (Late st Contact Info) Description 05/25/2017 Abstract [facility] [address] [place] [address] Anthony Morales MD [address] [facility] [address] [place] [address] Social History Tobacco Use Types [...] documented as of this encounter Care Teams Dramatic Critic Relationship Specialty Start Date End Date Gopi Pollock MD PCP - General CREATIVE SERVICES SPECIALIST 05/26/17 12/17/20 Sharif Pickering MD PCP - General FAMILY PRACTICE 12/18/20 02/17/21 Fidencio Gerardo MD [address] [place] [phone] PCP - General INTERNAL MEDICINE 02/18/21 10/24/23 Lyle Sheppard DO [address] [place] [address] PCP - General FAMILY PRACTICE 10/25/23 Anthony Morales MD CARDIOVASCULAR DISEASE 05/26/17 4 Gris Branham, ANP- [address] [facility] [address] [place] [address] NURSE PRACTITIONER ADULT HEALTH 10/25/23 documented as of this encounter
--- OUTSIDE RECORDS SUMMARY | 2024-11-29 07:26 | XMS_ITS | Encounter Summary ---
Author Organization [facility] Address [address] [place] [address] Care Team Providers Care Hand Sander Name Role Phone Andrew Giron MD, Anthony Unavailable [phone] Fidencio Gerardo MD Primary Care Provider [phone] Lyle Sheppard DO Primary Care Provider [phone] Gris Branham [facility] Unavailable [phone] Encounter Details Date Type Department Care Team (Late st Contact Info) Description 04/14/2022 Pre-Procedure Call [facility] Caster Pre/Post [address] [place] [address] Magdi Peralta MD [address] [facility] [address] [place] [address] Social History Tobacco Use Types [...] on filedocumented in this encounter Care Teams Hand Sander Relationship Specialty Start Date End Date Fidencio Gerardo MD [address] [place] [address] PCP - General INTERNAL MEDICINE 02/18/21 10/24/23 Lyle Sheppard DO [address] [place] [address] PCP - General FAMILY PRACTICE 10/25/23 Anthony Morales MD CARDIOVASCULAR DISEASE 05/26/17 4 Gris Brnaham, ANP- [address] [facility] [address] [place] [address] NURSE PRACTITIONER ADULT HEALTH 10/25/23 documented as of this encounter
--- OUTSIDE RECORDS SUMMARY | 2024-11-29 07:26 | XMS_ITS ---
Author Organization [facility] Address [address] [facility] [address] [place], [place] [address] Care Team Providers Care Storage Management Architect Name Role Phone RONALD DE LOS SANTOS Unavailable [phone] Lyle Sheppard Unavailable Unavailable REASON FOR VISIT *General care Vital Signs Height 66.00 in 10/25/2024 Weight 220 lbs 10/25/2024 BMI 35.51 kg/m2 10/25/2024 Height-cm 167.64 cm 10/25/2024 Weight-kg 99.79 kg 10/25/2024 Encounters Encounter Location Date Provider Diagnosis [facility] [place] [address] [place], [place] [address] 10/25/2024 RONALD DE LOS SANTOS Tinea unguium B35.1 ; Pain in right toe(s) M79.674 ; Pain in left toe(s) M79.675 ; Atherosclerosis of ey[place] arteries of extremities with intermittent claudication, bilateral [...] toe(s) (ICD-10 - M79.675) 10/25/2024 Atherosclerosis of eyak arteries of extremities with intermittent claudication, bilateral [...] GARCÍA, 12/27/2024 08:20:00 AM, [address], [address], [id number], Progress Notes * LATASHA DUKES ADOB: 9 (73 yo M)Acc No.[id number]:10/25/2024 Patient: LATASHA JOLLY Provider: Lele De Los Santos DPM :1950 A ge:73 Y S ex:Male Date:10/25/2024 Address:[address] [place], [place] [address] Subjective: * Chief Complaints: * * General [...] - M79.675 4 . A therosclerosis of eyak arteries of extremities with intermittent claudication, bilateral [...] arise) * Billing Information: * Visit Code: 61850 Office Visit, Est Pt., Level 3. * Procedure Codes: * F PASSENGER SHIP STEWARD/STEWARDESS Sign off status: Completed true * Provider: Lele De Los Santos DPM Date: 0 10/25/2024 Generated for Demarcus everett/Taryn/Lalo on: 0 11/29/2024 07:25 AM CHIEF PASSENGER SHIP STEWARD/STEWARDESS History and Physical Notes * HPI (History [...]
--- OUTSIDE RECORDS SUMMARY | 2024-11-29 07:26 | XMS_ITS | Encounter Summary ---
Author Organization [facility] Address [address] [place] [address] Care Team Providers Care It Security Consulting Director Name Role Phone Lyle Sheppard DO Primary Care Provider [phone] Gris Branham [facility]- Unavailable [phone] Encounter Details Date Type Department Care Team (Late st Contact Info) Description 10/26/2023 Abstract [facility] [address] [place] [address] Abstract, Doc Pccl Social History Tobacco Use [...] on filedocumented in this encounter Care Teams It Security Consulting Director Relationship Specialty Start Date End Date Lyle Sheppard DO [address] [place] [address] PCP - General FAMILY PRACTICE 10/25/23 Gris Branham, ANP- [address] [facility] [address] [place] [address] NURSE PRACTITIONER ADULT HEALTH 10/25/23 documented as of this encounter
== END 2024-11-29 07:21 | disposition home or self-care (01) ==
LOC: ANHAUDASC 07:22
PROVIDERS: PCP Nurse Practitioner Family; Visit Provider Otolaryngology Otolaryngology/Facial Plastic Surgery
DX: H71.00 Cholesteatoma of attic, unspecified ear (principal); H90.41 Sensorineural hearing loss, unilateral, right ear, with unrestricted hearing on the contralateral side; H90.72 Mixed conductive and sensorineural hearing loss, unilateral, left ear, with unrestricted hearing on the contralateral side
CPT/HCPCS: 92557; 92567

== ENCOUNTER 2025-05-06 10:27 | Outpatient (CLI) | payer MEDICARE, MEDICAID, SELFPAY ==
--- OUTSIDE RECORDS SUMMARY | 2025-05-06 10:36 | XMS_ITS | Clinical Summary ---
Author Organization [facility] Address [address] [place] [address] Care Team Providers Care Regional Merchandising Manager Name Role Phone SharriLyle lara Primary Care Provider [phone] [facility],non-owned Affiliates and Associated Physician Practices is amultiple site organization consisting of ambulatory clinics and hospital sitesin [place], [place], [place] and [place]. This disclosure is being madepursuant to the Care Everywhere program and may not contain all information available regarding this patient. Last updated 18.[employer] [facility] Allergies No known active allergies Medications * Be aware that medications may not be up to date on this document. Alwaysverify current medications with the patient. Aspirin Low Dose 81 MG tablet Take 1 (one) tablet by mouth once daily 05/14/20 24 Active carvedilol (Coreg) 6.25 MG tablet Take 1 (one) tablet by mouth 2 times daily with morning and evening meal 02/08/20 24 Active fenofibrate (Tricor) 145 MG tablet Take 1 (one) tablet by mouth at bedtime 11/29/19 25 Active ipratropium (Atrovent) 0.06 % nasal spray Apex 2 (two) sprays into each nostril 3 times daily 03/16/20 24 Active lisinopril (Prinivil; Zestril) 5 MG tablet Take 1 (one) tablet by mouth every morning 01/22/20 25 Active metoprolol succinate XL 24hr (Toprol XL) 50 MG tablet Take 1 (one) tablet by mouth once daily 11/29/19 25 Active nitroGLYCERIN (Nitrostat) 0.4 MG tablet Dissolve 1 (one) tablet under the tongue every 5 minutes as needed 05/14/20 24 Active rosuvastatin (Crestor) 20 MG tablet Take 1 (one) tablet by mouth once daily 01/12/20 25 Active Ozempic, 2 MG/DOSE, 8 MG/3ML pen Inject 2 (two) mg subcutaneously every 7 days (once a week) 01/05/20 25 Active sildenafil (Revatio) 20 MG tablet Take 1 (one) tablet by mouth 3 times daily 01/19/20 25 Active terazosin (Hytrin) 10 MG capsule Take 1 (one) capsule by mouth once daily 10/23/19 25 Active ciprofloxacin-d exAMETHasone (Ciprodex) 0.3-0.1 % otic suspension Instill 4 (four) drops into both ears 2 times daily Active clopidogrel (plaVIX) 75 MG tablet Take 1 (one) tablet by mouth once daily Active dapagliflozin propanediol (Farxiga) 10 MG tablet Take 1 (one) tablet by mouth once daily Active Hydrocortisone 2 % Apply 1 Application to affected area as needed Active isosorbide mononitrate CR 24hr (Imdur) 60 MG tablet Take 1 (one) tablet by mouth once daily Active sertraline (Zoloft) 50 MG tablet Take 1 (one) tablet by mouth once daily Active Encounters Date Type Department Care Team Description 02/21/2025 12:45 PM CDT Office Visit [facility] [address] [place] [address] Tone Rubio MD Dysfunction of left eustachian tube (Primary Dx); Perforation of left tympanic membrane; Chronic diffuse otitis externa of left ear; Otorrhea of left ear; Sensorineural hearing loss (SNHL) of right ear with restricted hearing of left ear; Excessive cerumen in left ear canal; Retraction of tympanic membrane of left ear from Last 3 Months Immunizations Immunization Administration Dates Next Due INFLUENZA VACCINE, HIGH-DOSE , QUADR. (FLUZONE HIGH-DOSE QUADRIVALENT; 65Y+), 0.7 ML (HD-IIV4) 06/24/2023 Social History Tobacco Use Types Packs/Day Years Used Date Smoking Tobacco: Never Smokeless Tobacco: Never Alcohol Use Standard Drinks/Week Comments Never 0 (1 standard drink = 0.6 oz pur e alcohol) Sex and Gender Information Value Date Recorded Sex Assigned at Not on file Legal Sex Male 9:53 AM CDT Gender Identity Not on file Sexual Orientation Not on file Last Filed Vital Signs Vital Sign Reading Time Taken Comments Blood Pressure 137/85 02/21/2025 11:54 AM CDT Pulse 85 02/21/2025 11:54 AM CDT Temperature - - Respiratory Rate - - Oxygen Saturation - - Inhaled Oxygen Concentration - - Weight 93 kg (205 lb) 02/21/2025 11:54 AM CDT Height 165.1 cm (5' 5) 02/21/2025 11:54 AM CDT Body Mass Index 34.11 02/21/2025 11:54 AM CDT Plan of Treatment Upcoming Encounters Date Type Department Care Team (Latest Contact Info) Description 05/23/2025 10:03 AM CDT Hospital Encounter [facility] [address] [place] [address] Tone Rubio MD [address] [place] [address] [place] [address] Surgery General 05/23/2025 10:03 AM CDT - 05/23/2025 12:33 PM CDT Surgery [facility] [address] [place] [address] Tone Rubio MD [address] [place] [address] [place] [address] Right tympanoplasty, possible ossiculoplasty, tragal cartilage graft, perichondrial free tissue graft or fascia graft 06/06/2025 1:30 PM CDT Office Visit [facility] - [facility]NT [address] [place] [address] Tone Rubio MD [address] [place] [address] [place] [address] Scheduled Procedures Name Priority Associated Diagnoses Date/Ti me TYMPANOPLASTY Dysfunction of left eustachian tube Perforation of left tympanic membrane Otorrhea of left ear 05/23/2025 10:03 AM CDT Health Maintenance Due Date Last Done Comments HEPATITIS C SCREENING 12/24/1966 DTAP/TDAP/TD VACCINES (1 - Tdap) 12/29/1967 PNEUMOCOCCAL VACCINE 50+ (1 of 1 - PCV) 1998 ZOSTER VACCINE (1 of 2) 1998 Respiratory Syncytial Virus (RSV) Vaccine Pt: or over 60 yrs (1 - 1-dose 75+ series) 12/29/2023 COVID-19 VACCINE ( - 2023-2 5 season) 2024 DEPRESSION SCREENING 09/26/2024 MEDICARE AWV CALENDAR YEAR 2024 INFLUENZA VACCINE (#1) 2025 06/24/2023 HEPATITIS B VACCINE Aged Out No longe r eligible based on patient's age to complete this topic HIB VACCINE Aged Out No longer eligi ble based on patient's age to complete this topic HPV VACCINE Aged Out No longer eligi ble based on patient's age to complete this topic MENINGOCOCCAL (Group B) VACC INE SHARED DECISION-MAKING Aged Out No longer eligibl e based on patient's age to complete this topic MENINGOCOCCAL GROUPS A/C/Y/W VACCINE Aged Out No longer eligible b ased on patient's age to complete this topic Procedures Procedure Name Priority Date/Time Associated Diagnosis Comments IN EAR MICROSCOPY EXAMINATION Routine 02/21/2025 12:20 PM CDT Excessive cerumen in left ear canal from Last 3 Months Results * IN EAR MICROSCOPY EXAMINATION (02/21/2025 12:20 PM CDT) Narrative Tone Rubio MD - 02/21/2025 12:20 PM CDT Tone Rubio MD 02/21/2025 12:23 PM Procedure: Microscopic exam of the ear(s) with debridement of excessive cerumen under microscopic guidance Findings: See main note. Procedure in detail: The binocular operating microscope and and ear speculum were used to exam the ear(s). The patient tolerated the procedure well and there was no bleeding. Tone Rubio MD us Tone Rubio MD PROCEDURE/MINOR SURGICAL OR DERABLES Final Result from Last 3 Months Insurance [facility] MANAGED MEDICARE FORMERLY [facility] MEDICAID - [place] Care Teams Regional Merchandising Manager Relationship Specialty Start Date End Date Lyle Sheppard DO [address] [place] [address] PCP - General Family Medicine 01/09/25
--- OUTSIDE RECORDS SUMMARY | 2025-05-06 10:36 | XMS_ITS ---
Author Organization [facility] Address [address] [place], [place] [address] Care Team Providers Care Lawn Caretaker Name Role Phone RONALD DE LOS SANTOS Unavailable [phone] Lyle Sheppard Unavailable Unavailable REASON FOR VISIT *General care - mad about deductible Encounters Encounter Location Date Provider Diagnosis [facility] [place] [address] [place], [place] [address] 12/27/2024 RONALD DE LOS SANTOS Plan Of Treatment No Information Progress Notes * LATASHA DUKES ADOB: [birth year] (74 yo M)Acc No.[id number]:12/27/2024 Patient: LATASHA JOLLY Provider: Lele De Los Santos DPM :1950 A ge:73 Y S ex:Male Date:12/27/2024 Address:[address] [place] [address] Subjective: * Chief Complaints: * 1 . *General care - mad about deductible. * Medical History: Objective: * Vitals: Assessment: Plan: * Treatment: * Billing Information: * Visit Code: * Procedure Codes: * Electronic signature of RONALD DE LOS SANTOS DPM on 05/06/2025 at 10:35 AM CDT Sign off status: Pending * Provider: Lele De Los Santos DPM Date: 12/27/2024 Generated for Harperi ng/Faconstanceg/eTransmitting on: 05/06/2025 10:35 AM CDT
--- OUTSIDE RECORDS SUMMARY | 2025-05-06 10:36 | XMS_ITS ---
Author Organization [facility] Address [address] [place], [place] [address] Care Team Providers Care Bridge Expert Name Role Phone RONALD RENNER Unavailable [phone] Lyle Sheppard Unavailable Unavailable SNRONALD FRANCO Unavailable [phone] REASON FOR VISIT *General care Encounters Encounter Location Date Provider Diagnosis [facility] [place] [address] [address] [place], [place] [address] 06/25/2024 RONALD HUBBARD Plan Of Treatment No Information Progress Notes * LATASHA DUKES ADOB: (74 yo M)Acc No.[id number]:06/25/2024 Patient: LATASHA JOLLY Provider: Lele Hubbard DPM :1950 A ge:73 Y S ex:Male Date:06/25/2024 Address:[address] [place], [place] [id number] Subjective: * Chief Complaints: * 1 . *General care. * Medical History: Objective: * Vitals: Assessment: Plan: * Treatment: * Billing Information: * Visit Code: * Procedure Codes: * Electronic signature of RONALD HUBBARD DPM on 05/06/2025 at 10:36 AM CDT Sign off status: Pending * Provider: Lele Hubbard DPM Date: 06/25/2024 Generated for Printi ng/Faxing/eTransmitting on: 05/06/2025 10:36 AM CDT
--- OUTSIDE RECORDS SUMMARY | 2025-05-06 10:37 | XMS_ITS | Patient Health Record ---
Author Organization [facility] Address [address] [place], [place] [address] Care Team Providers Care Lab Technologist Name Role Phone RONALD RENNER Unavailable [phone] Lyle Sheppard Unavailable Unavailable EMILIEFortunatoRONALD Unavailable [phone] Allergies No Known Allergies Reason For Referral No Information Immunizations Vaccine Route Administration Date Status Comme nts Influenza, high dose seasonal Unknown 06/24/2023 Admini stered Social History Tobacco Use: Social History Observation Description Date Details (start date - stop date) Unknown if ever smoked NA - NA Tobacco Control (Standard) Question Answer Notes Tobacco use: Unknown if ever smoked Vital Signs Height-cm 167.64 cm 10/25/2024 Weight-kg 99.79 kg 10/25/2024 Height 66.00 in 10/25/2024 Weight 220 lbs 10/25/2024 BMI 35.51 kg/m2 10/25/2024 Encounters Encounter Location Date Provider Diagnosis [facility] [place] [address] [place], [place] [id number] 10/25/2024 RONALD RENNER Tinea unguium B35.1 ; Pain in right toe(s) M79.674 ; Pain in left toe(s) M79.675 ; Atherosclerosis of [place] arteries of extremities with intermittent claudication, bilateral [...] toe(s) (ICD-10 - M79.675) 10/25/2024 Atherosclerosis of [place] arteries of extremities with intermittent claudication, bilateral [...] the Amputation Prevention Guide. Plan Of Treatment No Information Insurance Providers Payer Name Payer Address Payer Phone Subscriber Number Group Number Insured Name Patient Relationship to Insured Coverage Start Date Coverage End Date [facility] [address] [address] [place] [id number] LATASHA DUKES Self - patient is the insured
[2025-05-06 10:44] LABS: Add Urine Microscopic? YES; Appearance Urine Clear (Clear); Glucose Urine UA Negative (Negative); Leukocyte Esterase Ur Trace LEU/UL (Negative); Nitrate Urine Negative (Negative); Specific Grav Ur 1.020 (1.010-1.020)
== END 2025-05-06 10:28 | disposition home or self-care (01) ==
LOC: CHSLAB 10:27
PROVIDERS: PCP Family Medicine; Visit Provider Nurse Practitioner Family
DX: R30.0 Dysuria (principal); R39.15 Urgency of urination
CPT/HCPCS: 81001

== ENCOUNTER 2025-06-04 15:03 | Emergency (ER) | payer MEDICARE, MEDICAID, SELFPAY ==
--- OUTSIDE RECORDS SUMMARY | 2024-02-17 08:10 | XMS_ITS ---
Author Organization [facility] Address [address] [place], [place] [id number] Care Team Providers Care Developer Analyst Name Role Phone RONALD DE LOS SANTOS Unavailable [phone] Lyle Sheppard Unavailable Unavailable REASON FOR VISIT *Possible ingrown nail Medications Medication SIG (Take, Route, Frequency, Duration) Notes Start Date End Date Status Lisinopril 5 MG Oral Tablet lisinopril 5 MG Oral TabletOriginal Medicationlisinopril 5 MG Oral Tablet *Reorder from [employer] for eRx and Interaction Alerts* 10/29/2022 Active Vital Signs Height 66.00 in 02/17/2024 Weight 220 lbs 02/17/2024 BMI 35.51 kg/m2 02/17/2024 Height-cm 167.64 cm 02/17/2024 Weight-kg 99.79 kg 02/17/2024 Encounters Encounter Location Date Provider Diagnosis [facility] [place] [address] [place], [place] [id number] 02/17/2024 RONALD DE LOS SANTOS Tinea unguium B35.1 ; 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 ; Acquired keratosis [keratoderma] palmaris et plantaris L85.1 ; Type 2 diabetes mellitus with other circulatory complications E11.59 ; Pain in right toe(s) M79.674 and Pain in left toe(s) M79.675 Assessments Encounter Date Diagnosis (ICD Code) Assessment Notes Treatment Notes Treatment Clinical Notes Section Notes 02/17/2024 Tinea unguium (ICD-10 - B35.1) 02/17/2024 Non-pressure chronic ulcer of other part of left foot limited to breakdown of skin (ICD-10 - L97.521) 02/17/2024 Acquired keratosis [keratoderma] palmaris et plantaris (ICD-10 - L85.1) 02/17/2024 Type 2 diabetes mellitus with other circulatory complications (ICD-10 - E11.59) 02/17/2024 Pain in right toe(s) (ICD-10 - M79.674) 02/17/2024 Pain in left toe(s) (ICD-10 - M79.675) 02/17/2024 Other Slant Back Toenail: Following skin prep, the offending nail border was debrided without anesthesia. The patient was instructed on monitoring for infection or recurrence. Plan Of Treatment Treatment Notes Assessment Notes Other Slant Back Toenail: Following skin prep, the offending nail border was debrided without anesthesia. The patient was instructed on monitoring for infection or recurrence. Next Appt Details Follow Up: 10 - 12 weeks, Re ason: At-Risk Foot care, sooner if problems develop. Progress Notes * LATASHA DUKES ADOB: [birth year] (74 yo M)Acc No.[id number]:02/17/2024 Patient: LATASHA JOLLY Provider: Lele De Los Santos DPM :1950 A ge:73 Y S ex:Male Date:02/17/2024 Address:[address] [place] [address] Subjective: * Chief Complaints: * 1 . *Possible ingrown nail. * HPI: H PI: New Complaint E stablished patient presents with a new complaint. Patient complains of an issue to his left great toenail. He states he was here 02/06/24 and had his nails trimmed. He thinks he is getting an ingrown toenail and would like to have it cut out. He states he also has a painful spot on the bottom of his left foot that was cut out before. It is starting to bother him again, and he would like it looked at. Patient denies any injury. MA: sea.? * ROS: G eneral / Constitutional: Patient denies f ever, weight loss, chills. ? M usculoskeletal: Patient denies w eakness, broken foot bone. ? P eripheral Vascular: Patient denies p ain / cramping in legs after exertion, ulceration of feet. S kin: Patient complains of f ungal nails, nail changes, calluses and corns. N eurologic: Patient denies b alance difficulty, confusion, difficulty speaking, dizziness. * Medical History: * Medications: T aking Lisinopril 5 MG Oral Tablet , stop date 10/18/2024, Notes to Pharmacist: lisinopril 5 MG Oral TabletOriginal Medicationlisinopril 5 MG Oral Tablet *Reorder from [employer] for eRx and Interaction Alerts*, Medication List reviewed and reconciled with the patient Objective: * Vitals: W t:220lbs, Wt-k.79 kg, Ht: 66.00 in, Ht-cm: 167.64 cm, BMI:35.51Index, Body Surface Area: 2.15. * Examination: P hysical Examination: General appearance: A lert, pleasant, well-nourished and in no acute distress. D ermatologic: Skin findings: S kin is thin, atrophic and lacking pedal hair.. Hypertrophic / hyperkeratotic lesion: p lantar aspect of the 1st and 3rd metatarsal heads bilateral. Nail pathology: N ails 1-5 bilateral are elongated, thick, discolored, and dystrophic with subungual debris. They are painful to palpation. Ingrown Nail N ail is incurvated on the medial border of the right great toenail . V ascular: Dorsalis pedis pulse: 0 /4, bilateral. Posterior tibial pulse: 1 /4, bilaterally. Capillary refill: g reater than 3 seconds. Edema: N o edema bilateral. N eurologic: Gross sensation G rossly intact to light touch. There is negative Tinel's sign. M usculoskeletal: Muscle Strength M uscle strength is 5/5 in regards to dorsiflexion, plantarflexion, inversion, and eversion in bilateral lower extremities. ? Assessment: * Assessment: 1. N on-pressure chronic ulcer of other part of left foot limited to breakdown of skin - L97.521 (Primary) 2 . T inea unguium - B35.1 3 . A cquired keratosis [keratoderma] palmaris et plantaris - L85.1 4 . T ype 2 diabetes mellitus with other circulatory complications - E11.59 5 . P ain in right toe(s) - M79.674? 6. P ain in left toe(s) - M79.675 Plan: * Treatment: * Follow Up: 1 0 - 12 weeks (Reason: At-Risk Foot care, sooner if problems develop.) * Billing Information: * Visit Code: 63640 Office Visit, Est Pt., Level 3. * Procedure Codes: * Electronic signature of RONALD DE LOS SANTOS DPM on 06/04/2025 at 04:26 PM CDT Sign off status: Pending * Provider: Lele De Los Santos DPM Date: 02/17/2024 Generated for Demarcus everett/Tayrn/Lalo on: 0 06/04/2025 04:26 PM CDT History and Physical Notes * HPI (History of Present Illness) Category Sub-Category Detail Notes Category Not es HPI New Complaint Established donna ent presents with a new complaint. Patient complains of an issue to his left great toenail. He states he was here 02/06/24 and had his nails trimmed. He thinks he is getting an ingrown toenail and would like to have it cut out. He states he also has a painful spot on the bottom of his left foot that was cut out before. It is starting to bother him again, and he would like it looked at. Patient denies any injury. MA: sea Examination Category Sub-Category Detail Notes Category Not es Dermatologic Skin findings: Skin is thin, at rophic and lacking pedal hair. Nail pathology: Nails 1-5 bilateral are elongated, thick, discolored, and dystrophic with subungual debris. They are painful to palpation Hypertrophic / hyperkeratotic lesion: pl andrea aspect of the 1st and 3rd metatarsal heads bilateral Ingrown Nail Nail is incurvated o n the medial border of the right great toenail Neurologic Gross sensation Grossly intact t o light touch. There is negative Tinel's sign Vascular Dorsalis pedis pulse: 0/4, bilateral Edema: No edema bilateral Capillary refill: greater than 3 secon ds Posterior tibial pulse: 1/4, bilaterally Physical Examination General appearance: Alert, pleasant, well-nourished and in no acute distress Musculoskeletal Muscle Strength Muscle strength is 5/5 in regards to dorsiflexion, plantarflexion, inversion, and eversion in bilateral lower extremities
--- OUTSIDE RECORDS SUMMARY | 2024-06-25 05:30 | XMS_ITS ---
Author Organization [facility] Address [address] [place], [place] [id number] Care Team Providers Care Color Checker Roving Or Yarn Name Role Phone YECENIA RENNERIC Unavailable [phone] Lyle Sheppard Unavailable Unavailable SNRONALD FRANCO Unavailable [phone] REASON FOR VISIT *General care Encounters Encounter Location Date Provider Diagnosis [facility] [place] [address] [place], [place] [phone] 06/25/2024 RONALD HUBBARD Plan Of Treatment No Information Progress Notes * LATASHA DUKES ADOB: (74 yo M)Acc No.[id number]:06/25/2024 Patient: LATASHA JOLLY Provider: Lele Hubbard DPM :1950 A ge:73 Y S ex:Male Date:06/25/2024 Address:[address] [place], [place] [id number] Subjective: * Chief Complaints: * 1 . *General care. * Medical History: Objective: * Vitals: Assessment: Plan: * Treatment: * Billing Information: * Visit Code: * Procedure Codes: * Electronic signature of RONALD HUBBARD DPM on 06/04/2025 at 04:25 PM CDT Sign off status: Pending * Provider: Lele Hubbard DPM Date: 06/25/2024 Generated for Printi ng/Faxing/eTransmitting on: 06/04/2025 04:25 PM CDT
--- OUTSIDE RECORDS SUMMARY | 2024-12-27 03:20 | XMS_ITS ---
Author Organization [facility] Address [address] [place], [place] [address] Care Team Providers Care It Security Administrator Name Role Phone RONALD DE LOS SANTOS Unavailable [phone] Lyle Sheppard Unavailable Unavailable REASON FOR VISIT *General care - mad about deductible Encounters Encounter Location Date Provider Diagnosis [facility] [place] [address] [place], [place] [phone] 12/27/2024 RONALD DE LOS SANTOS Plan Of Treatment No Information Progress Notes * LATASHA DUKES ADOB: 9 (74 yo M)Acc No.[id number]:12/27/2024 Patient: LATASHA JOLLY Provider: Lele De Los Santos DPM :1950 A ge:73 Y S ex:Male Date:12/27/2024 Address:[address] [place] [address] Subjective: * Chief Complaints: * 1 . *General care - mad about deductible. * Medical History: Objective: * Vitals: Assessment: Plan: * Treatment: * Billing Information: * Visit Code: * Procedure Codes: * Electronic signature of RONALD DE LOS SANTOS DPM on 06/04/2025 at 04:25 PM CDT Sign off status: Pending * Provider: Lele De Los Santos DPM Date: 12/27/2024 Generated for Harperi ng/Faellen/eTransmitting on: 06/04/2025 04:25 PM CDT
--- NOTE | ~2025-06-04 | US_ITS ---
US scrotum doppler INDICATION: Right testicular swelling TECHNIQUE: Testicular sonogram utilizing grayscale and color Doppler FINDINGS: The right testicle is enlarged and heterogeneous measuring 5.4 x 3.1 x 3.2 cm with hyperemia. The left testicle is homogeneous without discrete mass measuring 4.4 x 2 x 3.5 cm. Normal vascularity of the left testicle. There is a left hydrocele. The right and left epididymides appear normal. No evidence for varicocele. IMPRESSION: 1. Enlarged heterogeneous right testicle with hyperemia, consistent with acute orchitis. No evidence of torsion. Reviewed, dictated and finalized at location O.
[2025-06-04 15:10] VITALS: BP 138/77; PULSE 89; RESP 16; TEMP 36.8; O2SAT 98
[2025-06-04 16:22] VITALS: BP 163/82; PULSE 90; RESP 20; O2SAT 98
--- OUTSIDE RECORDS SUMMARY | 2025-06-04 16:26 | XMS_ITS | Encounter Summary ---
Author Organization [facility] Address [address] [place] [address] Care Team Providers Care Reporting Coordinator Name Role Phone Lyle Sheppard DO Primary Care Provider [phone] Gris Branham ANP-BC Unavailable [phone] Encounter Details Date Type Department Care Team (Late st Contact Info) Description 05/10/2025 Scan [facility] [address] [place] [address] Scanned, Doc Pccl Social History Tobacco Use Types [...] as of this encounter Plan of Treatment Upcoming Encounters Date Type Department Care Team (Late st Contact Info) Description 11/11/2025 1:30 PM DIRECTOR Office Visit [facility] [address] [place] [address] Gris Branham ANP-BC [address] [facility] [address] [place] [address] documented as of this encounter Procedures Procedure Name Priority Date/Time Associated Diagnosis Comments ELECTROCARDIOGRAM, TRACING Routine 05/10/2025 Coronary artery disease of [place] artery of [place] heart with stable angina pectoris documented in this encounter Results * ELECTROCARDIOGRAM, TRACING (05/10/2025) us Gris [place]FF[place] PROCEDURES-UNRESULTED Fi nal Result documented in this encounter Visit Diagnoses Diagnosis Coronary artery disease of [place] artery of [place] heart with stable angina pectoris documented in this encounter Care Teams Reporting Coordinator Relationship Specialty Start Date End Date Lyle Sheppard DO [address] [place] [address] PCP - General FAMILY PRACTICE 10/25/23 Gris Branham ANP-BC [address] [facility] [address] [place] [address] NURSE PRACTITIONER ADULT HEALTH 10/25/23 documented as of this encounter
--- OUTSIDE RECORDS SUMMARY | 2025-06-04 16:26 | XMS_ITS | Encounter Summary ---
Author Organization [facility] Address [address] [place] [address] Care Team Providers Care Automatic Gluing Machine Operator Name Role Phone Lyle Sheppard DO Primary Care Provider [phone] Gris Branham ANP-BC Unavailable [phone] Encounter Details Date Type Department Care Team (Late Contact Info) Description 10/26/2023 Abstract [facility] [address] [place] [address] Abstract, Doc Pccl Social History Tobacco Use [...] Encounters Date Type Department Care Team (Late Contact Info) Description 11/11/2025 1:30 PM SCHOOL COMMUNITY RELATIONS COORDINATOR Office Visit [facility] [address] [place] [address] Gris Branham ANP-BC [address] [facility] [address] [place] [address] documented as of this encounter Procedures Procedure Name Priority Date/Time Associated Diagnosis Comments CBC (OUTSIDE LAB) Routine 10/25/2023 BASIC METABOLIC PANEL Routine 10/25/2023 LIPID PANEL Routine 10/25/2023 documented in this encounter Results * LIPID PANEL (10/25/2023) Pathologist [facility] CHOLESTEROL 144 HDL 46 TRIGLYCERIDES 87 LDL (CALCULATED) 81 10/25/2023 us Default History Genericprovider LABORATORY Final Result * (ABNORMAL) BASIC METABOLIC PANEL (10/25/2023) Pathologist [facility] SODIUM S/P/B 141 POTASSIUM S/P/B 4.9 CO2 33 CHLORIDE S/P/B 102 GLUCOSE 111 mg/dL CALCIUM S/P/B 9.2 BUN 25 CREATININE S/P/B 1.31(A) 0.7 - 1.3 EGFR AFR. AMER. 53 <=90 EGFR NON-AFR. AMER. 53 <=90 AST 12 ALT 28 10/25/2023 us Default History Genericprovider LABORATORY Edited Result - Final * (ABNORMAL) CBC (OUTSIDE LAB) (10/25/2023) Pathologist [facility] WBC 6.9 HGB 14.9 HCT 44.6 PLT 171 RBC 4.84 10/25/2023 us Default History Genericprovider LAB-OUTSIDE/ABST RACTED Edited Result - Final documented in this encounter Visit Diagnoses Not on filedocumented in this encounter Care Teams Automatic Gluing Machine Operator Relationship Specialty Start Date End Date Lyle Sheppard DO [address] [place] [address] PCP - General FAMILY PRACTICE 10/25/23 Gris Branham, ANP- [address] [facility] [address] [place] [address] NURSE PRACTITIONER ADULT HEALTH 10/25/23 documented as of this encounter
--- OUTSIDE RECORDS SUMMARY | 2025-06-04 16:26 | XMS_ITS | Encounter Summary ---
Author Organization [facility] Address [address] [place] [address] Care Team Providers Care Administrator Of Home Health Name Role Phone Andrew Giron MD, Anthony Unavailable [phone] Fidencio Gerardo MD Primary Care Provider [phone] Lyle Sheppard DO Primary Care Provider [phone] Gris Branham [facility] Unavailable [phone] Encounter Details Date Type Department Care Team (Late Contact Info) Description 04/14/2022 Pre-Procedure Call [facility] Electorate Officer Pre/Post [address] [place], [place] [address] Magdi Peralta MD [address] [place] [address] Social History Tobacco Use Types Packs/Day Years [...] st Contact Info) Description 11/11/2025 1:30 PM SITE ADMINISTRATOR Office Visit [facility] [address] [place] [phone] Gris Branham, RODNEY-BC [address] [facility] [address] [place] [address] documented as of this encounter Visit Diagnoses Not on filedocumented in this encounter Care Teams Administrator Of Home Health Relationship Specialty Start Date End Date Fidencio Gerardo MD [address] [place] [address] PCP - General INTERNAL MEDICINE 02/18/21 10/24/23 Lyle Sheppard DO [address] [place] [address] PCP - General FAMILY PRACTICE 10/25/23 Anthony Morales MD CARDIOVASCULAR DISEASE 05/26/17 4 Gris Branham, RODNEY-BC [address] [facility] [address] [place] [address] NURSE PRACTITIONER ADULT HEALTH 10/25/23 documented as of this encounter
--- OUTSIDE RECORDS SUMMARY | 2025-06-04 16:26 | XMS_ITS | Encounter Summary ---
Author Organization [facility] Address [address] [place] [address] Care Team Providers Care Case Management Associate Name Role Phone Gopi Pollock MD Primary Care Provider Unava ilable Andrew Giron MD, Anthony Unavailable [phone] Sharif Pickering MD Primary Care Provider [phone] Fidencio Gerardo MD Primary Care Provider [phone] Lyle Sheppard DO Primary Care Provider [phone] Gris Branham Unavailable [phone] Encounter Details Date Type Department Care Team (Late st Contact Info) Description 05/25/2017 Abstract [facility] AT PHI [address] [place] [address] Anthony Morales MD [address] [address] Social History Tobacco Use Types Packs/Day [...] st Contact Info) Description 11/11/2025 1:30 PM LEATHER SEASONER [facility] [address] [place] [phone] Gris Branham ANP-BC [address] [facility] [address] [place] [phone] documented as of this encounter Visit Diagnoses Not on filedocumented in this encounter Additional Health Concerns Infection Onset Date Last Indicated Resolved Time COVID-19 Rule Out 02/10/2021 02/10/2021 02/10/2021 7:47 PM CDT documented as of this encounter Care Teams Case Management Associate Relationship Specialty Start Date End Date Gopi Pollock MD PCP - General FRONTEND ENGINEER 05/26/17 12/17/20 Sharif Pickering MD PCP - General FAMILY PRACTICE 12/18/20 02/17/21 Fidencio Gerardo MD [address] [place] [address] PCP - General INTERNAL MEDICINE 02/18/21 10/24/23 Lyle Sheppard DO [address] [place] [address] PCP - General FAMILY PRACTICE 10/25/23 Anthony Morales MD CARDIOVASCULAR DISEASE 05/26/17 4 Gris Branham, ANP- [address] [facility] [address] [place] [address] NURSE PRACTITIONER ADULT HEALTH 10/25/23 documented as of this encounter
--- OUTSIDE RECORDS SUMMARY | 2025-06-04 16:26 | XMS_ITS | Clinical Summary ---
Author Organization [facility] Address [address] [place] [address] Care Team Providers Care Dialysis Clinical Manager Name Role Phone Lyle Sheppard DO Primary Care Provider [phone] Source Comments [facility],non-owned Affiliates and Associated Physician Practices is amultiple site organization consisting of ambulatory clinics and hospital sitesin [place], [place], [place] and [place]. This disclosure is being madepursuant to the Care Everywhere program and may not contain all information available regarding this patient. Last updated 18.[facility] Allergies No known active allergies Medications * Be aware that medications may not be up to date on this document. Alwaysverify current medications with the patient. Aspirin Low Dose 81 MG tablet Take 1 (one) tablet by mouth once daily 05/14/20 24 Active fenofibrate (Tricor) 145 MG tablet Take 1 (one) tablet by mouth at bedtime 11/29/19 25 Active lisinopril (Prinivil; Zestril) 5 MG tablet [...] days (once a week) 01/05/20 25 Active terazosin (Hytrin) 10 MG capsule Take 1 (one) capsule by mouth once daily 10/23/19 25 Active Hydrocortisone 2 % Apply 1 Application to affected area as needed Active isosorbide mononitrate CR 24hr (Imdur) 60 MG tablet Take 1 (one) tablet by mouth once daily Active sertraline (Zoloft) 50 MG tablet Take 1 (one) tablet by mouth once daily Active acetaminophen (Tylenol) 325 MG tablet Take 2 (two) tablets by mouth every 6 hours as needed for Fever or Pain Maximum allowable Acetaminophen amount = 4 Grams (4000 mg) / 24 hours. 60 tablet 05/23/20 25 Active oxyCODONE, immediate release, (Roxicodone) 5 MG tabletIndicatio ns:Perforation of left tympanic membrane Take 1 (one) tablet by mouth every 6 hours as needed for Pain 12 tablet 05/23/20 25 Active ibuprofen (Motrin) 600 MG tablet Take 1 (one) tablet by mouth every 6 hours as needed for Pain 30 tablet 05/23/20 25 Active ciprofloxacin-d exAMETHasone (Ciprodex) 0.3-0.1 % otic suspension Shake well before using. Post op: Use 3 drops to the left ear once daily. Alternate this with the Vosol drops (Ciprodex in the morning, Vosol in the afternoon). Use until the bottle runs out. 7.5 mL 05/23/20 25 Active acetic acid (Vosol) 2 % otic solution Post op: Use 3 drops to the left ear once daily. Alternate this with the Ciprodex drops (Ciprodex in the morning, Vosol in the afternoon). Use until the bottle runs out. 15 mL 05/23/20 25 Active carvedilol (Coreg) 6.25 MG tablet Take 1 (one) tablet by mouth 2 times daily with morning and evening meal 02/08/20 24 025 Discontin ued(List Clean-Up) ipratropium (Atrovent) 0.06 % nasal spray Jackson 2 (two) sprays into each nostril 3 times daily 03/16/20 24 08/15/2 025 Discontin ued(List Clean-Up) sildenafil (Revatio) 20 MG tablet Take 1 (one) tablet by mouth 3 times daily 01/19/20 25 025 Discontin ued(List Clean-Up) ciprofloxacin-d exAMETHasone (Ciprodex) 0.3-0.1 % otic suspension Instill 4 (four) drops into both ears 2 times daily 025 Discontin ued(List Clean-Up) clopidogrel (plaVIX) 75 MG tablet Take 1 (one) tablet by mouth once daily 025 Discontin ued(List Clean-Up) dapagliflozin propanediol (Farxiga) 10 MG tablet Take 1 (one) tablet by mouth once daily 025 Discontin ued(List Clean-Up) Active Problems No known active problems Encounters Date Type Department Care Team Description 05/28/2025 Telephone [facility] [address] [place] [address] Tone Rubio MD Question (Post op ear concerns) 05/23/2025 7:37 AM CDT Anesthesia Event [facility] [address] [place] [phone] Laureano Zheng MD Keeven, Grace C, SUPERVISOR P[employer]-GRAPHIC ARTS TECHNICIAN 05/23/2025 7:05 AM CDT - 05/23/2025 9:35 AM CDT Surgery [facility] [address] [place] [phone] Tone Rubio MD Left tympanoplasty, ossiculoplasty, tragal cartilage graft, perichondrial free tissue graft 05/23/2025 5:29 AM CDT - 05/23/2025 10:58 AM CDT Hospital Encounter [facility] [address] [place] [phone] Tone Rubio MD Surgery General Discharge Disposition: Home or Self Care 05/23/2025 Travel 05/10/2025 3:33 PM CDT - 05/10/2025 11:59 PM CDT Hospital Encounter [facility] DRAW STATION [address] [place] [address] Tone Rubio MD Discharge Disposition: Home or Self Care 05/10/2025 3:32 PM CDT Hospital Encounter [facility] E[facility]/HOLTER [address] [place] [address] Tone Rubio MD Discharge Disposition: Home or Self Care 05/10/2025 2:00 PM CDT - 05/10/2025 3:31 PM CDT Hospital Encounter [facility] PAT [address] [place] [address] Tone Rubio MD Discharge Disposition: Home or Self Care 05/10/2025 Travel from Last 3 Months Immunizations Immunization Administration Dates Next Due INFLUENZA VACCINE, HIGH-DOSE , QUADR. (FLUZONE HIGH-DOSE QUADRIVALENT; 65Y+), 0.7 ML (HD-IIV4) 06/24/2023 Social History Tobacco Use Types Packs/Day Years Used Date Smoking Tobacco: Former Cigarettes 1 38 1 963 - 2000 Smokeless Tobacco: Never Tobacco Cessation:Counseling Given: Not Answered Alcohol Use Standard Drinks/Week Comments Never 0 (1 standard drink = 0.6 oz pur e alcohol) AUDIT-C Answer Date Recorded Q1: How often do you have a drink containing alc ohol? Patient declined 05/23/2025 Q2: How many drinks containi ng alcohol do you have on a typical day when you are drinking? Patient declined 05/23/2025 Q3: How often do you have si x or more drinks on one occasion? Patient declined 05/23/2025 Sex and Gender Information Value Date Recorded Sex Assigned at Not on file Legal Sex Male 9:53 AM CDT Gender Identity Not on file Sexual Orientation Not on file Last Filed Vital Signs Vital Sign Reading Time Taken Comments Blood Pressure 123/68 05/23/2025 10:45 AM CDT Pulse 78 05/23/2025 10:45 AM CDT Temperature 36 C (96.8 F) 05/23/2025 10:31 AM CDT Respiratory Rate 18 05/23/2025 10:45 AM CDT Oxygen Saturation 91% 05/23/2025 10:45 AM CDT Inhaled Oxygen Concentration - - Weight 95.3 kg (210 lb) 05/23/2025 5:45 AM CDT Height 165.1 cm (5' 5) 05/23/2025 5:45 AM CDT Body Mass Index 34.95 05/23/2025 5:45 AM CDT Plan of Treatment Upcoming Encounters Date Type Department Care Team (Late st Contact Info) Description 06/06/2025 1:30 PM CDT Office Visit [facility] - ENT [address] [place] [address], [place] [address] Tone Rubio MD [address] [place] [address] [place] [address] Health Maintenance Due Date Last Done Comments HEPATITIS C SCREENING 12/24/1966 DTAP/TDAP/TD VACCINES (1 - Tdap) 12/29/1967 PNEUMOCOCCAL VACCINE 50+ (1 of 1 - PCV) 1998 ZOSTER VACCINE (1 of 2) 1998 Respiratory Syncytial Virus (RSV) Vaccine Pt: or over 60 yrs (1 - 1-dose 75+ series) 12/29/2023 DEPRESSION SCREENING 09/26/2024 MEDICARE AWV CALENDAR YEAR 2024 COVID-19 VACCINE ( season) 2025 06/11/2022, 01/11/2022, 06/23/2021, Additional history exists INFLUENZA VACCINE (#1) 2025 07/14/2024, 2022 HEPATITIS B VACCINE Aged Out No longe r eligible based on patient's age to complete this topic HIB VACCINE Aged Out No longer eligi ble based on patient's age to complete this topic HPV VACCINE Aged Out No longer eligi ble based on patient's age to complete this topic MENINGOCOCCAL (Group B) VACCINE SHARED DECISION-MAKING Aged Out No longer eligible based on patient's age to complete this topic MENINGOCOCCAL GROUPS A/C/Y/W VACCINE Aged Out No longer eligible based on patient's age to complete this topic Medical Devices Implanted Type Area Staple Side Laster Device Identifier Shelf Expiration Date Model / Serial / Lot Cmnt Bone Olmps Otomimix Gomez 2gm Mid Ear Implanted:Qty: 1 on 05/23/2025 by Tone Rubio MD at [facility] Left: Ear [employer] 06/08/2025 [id number] / / [id number] Procedures Procedure Name Priority Date/Time Associated Diagnosis Comments GLUCOSE - POINT OF CARE Routine 05/23/2025 9:25 AM CDT ENDOTRACHEAL TUBE NOTE Routine 05/23/2025 8:18 AM CDT WA TYMPANOPLASTY 05/23/2025 7:21 AM CDT Dysfunction of left eustachian tube Perforation of left tympanic membrane Otorrhea of left ear Special Needs S2 mini foot pedal, FNM - Specialty Care (CONF#[id number]) 05/16 GLUCOSE - POINT OF CARE Routine 05/23/2025 6:29 AM CDT CBC W/O DIFFERENTIAL Routine 05/10/2025 3:48 PM CDT Pre-op examination BASIC METABOLIC PANEL (CALCIUM TOTAL) Routine 05/10/2025 3:48 PM CDT Pre-op examination EKG 12-LEAD Routine 05/10/2025 3:01 PM CDT Pre-op examination from Last 3 Months Results * (ABNORMAL) GLUCOSE - POINT OF CARE (05/23/2025 9:25 AM CDT) Only the most recent of2 resultswithin the time period is included. Glucose WB/POC 244(H) 70 - 99 mg/dL 05/23/2025 9:26 AM CDT [facility] Specimen Type Arterial/C apillary 05/23/2025 9:26 AM CDT [facility] Blood BLOOD SPECIMEN / Unknown 05/23/2025 9:25 AM CDT 05/23/2025 9:26 AM CDT us Tone Rubio MD LAB - POINT OF CARE ORDERAB LES Final Result [facility] [address] [address], [place] [phone] * ETT LINE PERFORMABLE (05/23/2025 8:18 AM CDT) Narrative Hermes Joiner CAA - 05/23/2025 8:18 AM CDT Hermes Joiner CAA 05/23/2025 8:20 AM Endotracheal Tube Placement: Patient Location: OR. Intubation Event Date/Time: 05/23/2025 7:47 AM Procedure: intubation (60913) Procedure Section: Sedation: under general anesthesia. Indications for Airway Management: anesthesia Procedure pretreatments used? No Induction: standard IV Patient Position: sniffing Mask Ventilation: easy with oral airway. Blade Type: Shree Blade Size: 3 Laryngoscopy View: grade 1 (full cords) Intubation Adjuncts: stylet Tube: endotracheal tube Placement: oral Tube type: cuff - inflated Tube Size (MM): 7 Depth of Insertion (CM): 23 Measured From: teeth Cuff volume (mL): 6 Cuff Inflated With: air Number of Attempts: 1. Placement Verified By: direct visualization, chest auscultation, CO2 monitor and bilateral breath sounds CXR Findings: ETT in proper place. Tube secured with: adhesive tape. Dentition unchanged? Yes Difficult Airway? No. Procedure Start Time: 05/23/2025 7:47 AM. Staff Section Anesthesia Provider: Hermes Joiner CAA Provider #1: Brad Cordero MD, Performed the procedure. Additional Comments: Medical student performed. us Laureano Zheng MD GENERAL ANESTHESIA ORDERABL ES Final Result * CBC W/O DIFFERENTIAL (05/10/2025 3:48 PM CDT) WBC 6.1 4.0 - 10.7 x10E9/L 05/10/2025 4:27 PM [facility] RBC Count 4.74 4.30 - 5.80 x10E12/L 05/10/2025 4:27 PM [facility] Hemoglobin 14.9 13.3 - 17.5 g/dL 05/10/2025 4:27 PM [facility] Hematocrit 42.7 38.7 - 51.1 % 05/10/2025 4:27 PM [facility] MCV 90.1 80.0 - 98.0 fL 05/10/2025 4:27 PM [facility] MCH 31.4 26.7 - 33.6 pg 05/10/2025 4:27 PM [facility] MCHC 34.9 31.7 - 36.3 g/dL 05/10/2025 4:27 PM [facility] RDW-CV 12.4 11.3 - 14.8 % 05/10/2025 4:27 PM [facility] Platelet Count 166 150 - 420 x10E9/L 05/10/2025 4:27 PM [facility] MPV 9.1 7.8 - 11.4 fL 05/10/2025 4:27 PM [facility] Blood BLOOD SPECIMEN / Unknown Lab Venipuncture / Unknown 05/10/2025 3:48 PM CDT 05/10/2025 4:11 PM CDT us Yue Louis SUPERVISOR [employer] TECHNICIAN LAB - HEMATOLOGY ORDERAB LES Final Result Performing Organization Address City/State/[facility] Co de Phone Number [facility] [address] [place] [address], [facility] [phone] * (ABNORMAL) BASIC METABOLIC PANEL (CALCIUM TOTAL) (05/10/2025 3:48 PM CDT) BUN 24 7 - 26 mg/dL 05/10/2025 4:45 PM [facility] Creatinine 1.11 0.71 - 1.16 mg/dL 05/10/2025 4:45 PM [facility] Sodium 138 136 - 145 mmol/L 05/10/2025 4:45 PM [facility] Potassium 4.1 3.5 - 4.5 mmol/L 05/10/2025 4:45 PM [facility] Chloride 108(H) 98 - 107 mmol/L 05/10/2025 4:45 PM [facility] CO2 24 22 - 29 mmol/L 05/10/2025 4:45 PM [facility] Glucose 113(H) 70 - 99 mg/dL 05/10/2025 4:45 PM [facility] Calcium 9.9 8.4 - 10.2 mg/dL 05/10/2025 4:45 PM CDT [facility] Anion Gap 6 6 - 16 05/10/2025 4:45 PM CDT [facility] BUN/Creatinine Ratio 22 7 - 23 05/10/2025 4:45 PM CDT [facility] Osmolality Calculated 291 275 - 295 mOsm/kg 05/10/2025 4:45 PM CDT [facility] eGFR by CKD-EPI 69(L) >=90 mL/min/1.7 3 m2 05/10/2025 4:45 PM CDT [facility] Comment:Estimated Glomerular Filtration Rate (eGFR) calculated using the CKD-EPI Creatinine Equation (2020), per the National Kidney Foundation and [place] Society of Nephrology recommendations. Blood BLOOD SPECIMEN / Unknown Lab Venipuncture / Unknown 05/10/2025 3:48 PM CDT 05/10/2025 4:11 PM CDT Yue Louis SUPERVISOR [employer]S TECHNICIAN LAB - CHEMISTRY ORDERABL ES Final Result [facility] [address] [place] [address], [facility] [phone] * EKG 12-Lead (05/10/2025 3:01 PM CDT) Ventricular Rate 65 BPM [facility] MUSE Atrial Rate 65 BPM [facility] M[facility] P-R Interval 160 ms [facility] QRS Duration ms 126 ms [facility] M[facility] Q-T Interval ms 428 ms [facility] M[facility] QTC Calculation (Bezet) 445 ms [facility] MUSE Calculated [place] 51 degrees [facility] M[facility] Calculated [place] -67 degrees [facility] MUSE Calculated [place] 61 degrees [facility] M[facility] Interpretation EKG NORMAL SINUS RHYTHM LEFT AXIS DEVIATION NON-SPECIFIC INTRA-VENTRIC ULAR CONDUCTION BLOCK MINIMAL VOLTAGE CRITERIA FOR LVH, MAY BE NORMAL VARIANT ( [place] product ) ABNORMAL ECG NO PREVIOUS ECGS AVAILABLE Confirmed by MADELYN FOWLER MD ([id number]) on 05/12/2025 3:46:01 PM [facility] MUSE 05/10/2025 3:01 PM CDT 05/12/2025 3:46 PM CDT us Yue Louis SUPERVISOR [employer] TECHNICIAN ECG ORDERABLES Edited R esult - Final [facility] MUSE from Last 3 Months Insurance [facility] MANAGED MEDICARE ADV MEDICAID - [place] Advance Directives Documents on File Type Date Recorded Patient Prop Making Supervisor Expl anation Adv Directive/Living Will/POA 05/23/2025 DAYANARA (DAUGHTER) P OA Care Teams Dialysis Clinical Manager Relationship Specialty Start Date End Date Lyle Sheppard DO [address] [place] [id number] PCP - General Family Medicine 01/09/25
--- OUTSIDE RECORDS SUMMARY | 2025-06-04 16:26 | XMS_ITS | Patient Health Record ---
Author Organization [facility] Address [address] [place], [place] [address] Care Team Providers Care Bush Regenerator Name Role Phone RONALD RENNER Unavailable [phone] Lyle Sheppard Unavailable Unavailable EMILIEFortunatoRONALD Unavailable [phone] Allergies No Known Allergies Reason For Referral [...] Location Date Provider Diagnosis [facility] [address] [place], [place] [address] 10/25/2024 RONALD RENNER Tinea unguium B35.1 ; Pain in right toe(s) M79.674 ; Pain in left toe(s) M79.675 ; 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
--- OUTSIDE RECORDS SUMMARY | 2025-06-04 16:26 | XMS_ITS | Clinical Summary ---
Author Organization [facility] Address [address] [place] [address] Care Team Providers Care Clock Mechanic Name Role Phone SharriLyle lara DO Primary Care Provider [phone] Gris Branham [facility]- Unavailable [phone] Allergies No known active allergies Medications Terazosin HCl 10 MG Cap Take 1 capsule (10 mg total) by mouth nightly at bedtime. Active fenofibrate 145 MG tablet Take 145 mg by mouth nightly. Active semaglutide (OZEMPIC, 1 MG/DOSE,) 2 MG/1.5ML injection (PEN) Inject 2 mg into the skin every 7 days. Active lisinopril (PRINIVIL) 5 MG tablet Take 1 tablet (5 mg total) by mouth nightly. 02/07/20 24 Active metoprolol succinate ER (TOPROL-XL) 50 MG 24 hr tablet Take 1 tablet (50 mg total) by mouth daily. 90 tablet 3 05/14/20 24 Active nitroglycerin (NITROSTAT) 0.[address] 1 tablet (0.4 mg total) under the tongue every 5 (five) minutes as needed. 25 tablet 1 05/14/20 24 Active rosuvastatin (CRESTOR) 20 MG tablet TAKE 1 TABLET(20 MG) BY MOUTH EVERY NIGHT AT BEDTIME 90 tablet 1 08/06/20 24 Active aspirin EC (ECOTRIN) 81 MG tablet Take 1 tablet (81 mg total) by mouth daily. 05/13/20 25 Active HYDROCORTISONE , TOPICAL, 2 % Lotion Apply topically as needed. apply sparingly to affected area(s) 025 Discontinued(D iscontinued by another clinician) aspirin EC (ECOTRIN) 81 MG tablet Take 1 tablet (81 mg total) by mouth daily. 90 tablet 3 05/14/20 24 025 Discontinued(P t. 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) 05/26/2017 MARTIN (dyspnea on exertion) Atypical chest pain HTN (hypertension) Resolved Problems Problem Noted Date Diagnosed Date Resolved Date Unstable angina ([facility]) 04/12/2022 05/20/2024 Encounters Date Type Department Care Team Description 05/13/2025 3:30 PM CDT [facility] [address] [place] [address] [facility]is Bran[facility] Pre-Op Exam 05/13/2025 Travel 05/13/2025 Telephone [facility] [address] [place] [address] Gris Branham [facility] Surgical Clearance 05/13/2025 Telephone [facility] [address] [place] [address] Gris Branham [facility] Appointment Request 05/10/2025 Scan [facility] [address] [place] [address] Scanned, Doc Pccl from Last 3 Months Family History Medical History Relation Comments Heart Attack Father Heart Attack Mother Relation Status Comments Father HI age 70 Mother [place] age 40 Social History Tobacco Use Types [...] Sign Reading Time Taken Comments Blood Pressure 104/66 05/13/2025 4:05 PM CDT Pulse 83 05/13/2025 4:05 PM CDT Temperature 36.3 C (97.3 F) 04/21/2022 11:26 AM CDT Respiratory Rate 20 05/13/2025 4:05 PM CDT Oxygen Saturation 94% 05/13/2025 4:05 PM CDT Inhaled Oxygen Concentration - - Weight 94.7 kg (208 lb 12.8 oz) 05/13/2025 4:05 PM CDT Height 165.1 cm (5' 5) 05/13/2025 4:05 PM CDT Body Mass Index 34.75 05/13/2025 4:05 PM CDT Plan of Treatment Upcoming Encounters Date Type Department Care Team (Late st Contact Info) Description 11/11/2025 1:30 PM HORTICULTURAL MANAGER [facility] [address] [place] [address] Gris Branham, ANP- [address] [address] Health Maintenance Due Date Last Done Comments Hepatitis C 1966 DTaP, Tdap and Td Vaccines (1 - Tdap) 12/29/1967 Zoster Vaccines (1 of 2) 1998 Annual Medicare Wellness Visit 2013 Pneumococcal Vaccine: 50+ Years (2 of 2 - PPSV23) 08/25/2020 06/30/2020 RSV Immunization or 60+ Years (1 - 1-dose 75+ series) 12/29/2023 ASCVD LDL 10/25/2024 10/25/2023, 02/24, 02/16/2021, Additional history exists COVID-19 Vaccine ( season) 2025 11/19/2020, 10/29/2020 Meningococcal B Vaccine Aged Out No l onger eligible based on patient's age to complete this topic Meningococcal Vaccine Aged Out No jean john eligible based on patient's age to complete this topic RSV Immunizations Under 20 Months Aged Out No longer eligible based on patient's age to complete this topic Medical Devices Implanted Type Area Utilization Review Specialist Device Identifier Shelf Expiration Date Model / Serial / Lot Cv Synergy Gary Mid Lad Stent-04/21/20 22 Implanted:Qty : 1 on 04/21/2022 by Magdi Peralta MD Stent Coronary LAD [employer] CHRIS 12/21/2023 [id number] / / [id number] Procedures Procedure Name Priority Date/Time Associated Diagnosis Comments ELECTROCARDIOGRAM, TRACING Routine 05/10/2025 Coronary artery disease of kake artery of kake heart with stable angina pectoris LIPID PANEL Routine 10/25/2023 from Last 3 Months or Most Recently Relevant to Health Maintenance Results * ELECTROCARDIOGRAM, TRACING (05/10/2025) Gris Branham [facility]- PROCEDURES-UNRESULTED Fi nal Result * LIPID PANEL (10/25/2023) CHOLESTEROL 144 HDL 46 TRIGLYCERIDES 87 LDL (CALCULATED) 81 10/25/2023 us Default History Genericprovider LABORATORY Final Result from Last 3 Months or Most Recently Relevant to Health Maintenance Insurance MEDICAID [facility] MEDICAID Advance Directives * Full Code (Latest Code Status on File) Date Activated Date Inactivated Comments 04/21/2022 3:27 PM 04/21/2022 8:35 PM Care Teams Clock Mechanic Relationship Specialty Start Date End Date Lyle Sheppard DO [address] [place] [address] PCP - General FAMILY PRACTICE 10/25/23 Gris Branham, ANP- [address] [facility] [address] [place] [address] NURSE PRACTITIONER ADULT HEALTH 10/25/23
--- NOTE | 2025-06-04 17:16 | ED_ITS ---
HPI - General Adult General Chief complaint: Urogenital-Male Stated complaint: swollen testicle Time Seen by Provider: 06/04/25 16:16 History of Present Illness HPI narrative: 74-year-old male presents to the emergency department for evaluation for pain in the urethra out pain in the right testicle. Patient has had a indwelling Crystal catheter for an extended period of time, patient did have the Crystal catheter exchanged yesterday and patient states that took them to attempts to get this Crystal catheter placed. Patient does complain of some pain in the urethra that he attributes to the Crystal catheter. Patient also has swelling of the right testicle that he states is new since yesterday. 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 Cholesteatoma of attic Attic perforation of tympanic membrane Perforated ear drum Callus of foot BMI 33.0-33.9,adult Left shoulder pain BMI 34.0-34.9,adult Peripheral neuropathy Bilateral bunions DJD (degenerative joint disease), multiple sites CKD (chronic kidney disease) stage 1, GFR 90 ml/min or greater Chronic low back pain Encounter for routine adult health examination without abnormal findings Elevated serum creatinine BMI 36.0-36.9,adult History of shortness of breath History of obstructive sleep apnea Prostate cancer screening Left knee pain BMI 37.0-37.9, adult Follow up CHF (congestive heart failure) Heart disease Heart attack COPD (chronic obstructive pulmonary disease) Mixed hyperlipidemia HTN (hypertension) DM2 (diabetes mellitus, type 2) Surgical History Surgical History History of umbilical hernia repair 04/21/2023 - robotic assisted incarcerated umbilical hernia repair with mesh History of carpal tunnel surgery History of colonoscopy History of cardiac cath 2010, 2012, 2021 H/O heart artery stent [address] [facility] in [place] Family History Family History Mother Acute myocardial infarction at age 40 Father Heart disease at age 72 Heart attack Social History Social History Smoking packs per day: 1 Smoking cigarettes per day: 20.0 Years smoked: 55 Smoking pack-years: 55.00 Smoking status: Former smoker Tobacco type: cigarettes Second hand tobacco smoke exposure: Yes Smoking end date: 03/26/08 Alcohol intake: never Substance use: never Substance use type: does not use Living arrangements: alone Occupation/Education: retired Gender identity (if verbalized by the patient): Male Sexual Orientation (if Verbalized by the Patient): Straight or Heterosexual Spiritual care concerns: No Agree to blood products: Yes Exam Narrative: APPEARANCE: Well appearing, no pain, no distress, well-nourished. HEAD: normocephalic, atraumatic. EYES: PERRLA/EOMI, conjunctivae clear. NOSE: Normal no drainage EARS:TMS clear with good light reflex. THROAT: Pharynx clear, no exudate. NECK: Supple. No adenopathy, no masses. RESPIRATORY: Airway patent, respirations nonlabored. Clear to auscultation bilaterally, no rales, rhonchi, wheezing. CARDIOVASCULAR: Regular rate and rhythm without murmurs rubs or gallops. ABDOMINAL: Soft, nontender, nondistended, normal bowel sounds MUSCULOSKELETAL: Moves all extremities. Strength/ROM intact, No edema, No calf tenderness. NEURO: Alert. Cranial nerves II through XII intact. Good gait. Good coordination SKIN: Warm, dry. Normal Color Genital exam right testicular swelling. Course Vital Signs Vital signs: Vital Signs Temperature 98.2 F 06/04/25 15:10 Pulse Rate 89 06/04/25 15:10 Respiratory Rate 16 06/04/25 15:10 Blood Pressure 138/77 06/04/25 15:10 Pulse Oximetry 98 06/04/25 15:10 Temperature 99.9 F H 06/04/25 17:17 Pulse Rate 91 06/04/25 18:32 Respiratory Rate 18 06/04/25 18:32 Blood Pressure 135/75 06/04/25 18:32 Pulse Oximetry 97 06/04/25 18:32 Medical Decision Making MDM Narrative Medical decision making narrative: 74-year-old male presenting ED for evaluation for right testicular swelling. Ultrasound was negative for torsion but did show evidence of orchitis. Patient's Crystal catheter was changed yesterday sample strong from the Crystal catheter bag this was nitrate positive with leukocyte esterase, high red blood cells and greater than 100 white blood cells. Urine culture was ordered. Patient was started on Levaquin to treat the orchitis and this will also treat his urinary tract infection. Patient family updated the results of the workup. All questions concerns were addressed. Patient will have close follow-up with his primary care physician. Differential Diagnosis Differential Diagnosis: Torsion, orchitis, epididymal orchitis, hydrocele, varicocele Vital Signs Vital Signs: Vital Signs Temperature 98.2 F 06/04/25 15:10 Pulse Rate 89 06/04/25 15:10 Respiratory Rate 16 06/04/25 15:10 Blood Pressure 138/77 06/04/25 15:10 Pulse Oximetry 98 06/04/25 15:10 Temperature 99.9 F H 06/04/25 17:17 Pulse Rate 91 06/04/25 18:32 Respiratory Rate 18 06/04/25 18:32 Blood Pressure 135/75 06/04/25 18:32 Pulse Oximetry 97 06/04/25 18:32 Lab Data Lab results reviewed: Yes I reviewed the patient's lab results. Labs: Lab Results 06/04/25 Range/Units 17:13 Urine Color Yellow (Yellow) Urine Appearance Cloudy H (Clear) Urine pH 5.5 (5.0-9.0) Ur Specific Baxter 1.027 (1.001-1.035) Urine Protein 2+ H (Negative) mg/dL Urine Glucose (UA) 3+ H (Negative) mg/dL Urine Ketones Negative (Negative) mg/dL Ur Blood (Man) 3+ H (Negative) Urine Nitrate Positive H (Negative) Urine Bilirubin Negative (Negative) Urine Urobilinogen 1.0 (<2.0) mg/dL Add Ur Microanalysis Reviewed Leukocyte Esterase Rfl 3+ H (Negative) CULLEN/UL Urine RBC 51-100 H (0-2) /hpf Urine WBC >100 H (0-3) /hpf Ur Squamous Epith Cells Occasional (Few) /hpf Urine Bacteria 4+ H /hpf Urine Casts 11-20 Imaging Data Radiologist's impression: Impressions Scrotum Ultrasound 06/04/25 17:34 IMPRESSION: 1. Enlarged heterogeneous right testicle with hyperemia, consistent with acute orchitis. No evidence of torsion. Discharge Plan Discharge Clinical Impression: Orchitis, Acute UTI Patient Disposition: Home Condition: Stable Instructions: Antibiotic Form, Urinary Tract Infection in Men (ED), Orchitis (ED) Additional Instructions: Antibiotic as directed until completed. [place] as needed for pain control. Have close follow-up with Urology. If you have any worsening symptoms please call or return to the emergency department. Patient Language: German Prescriptions: New levofloxacin 750 mg tablet 750 mg PO DAILY 7 Days Qty: 7 0RF hydrocodone-acetaminophen 5-325 mg tablet 1 tablet PO Q12H PRN (Reason: pain) Qty: 10 0RF No Action (DME) Diabetic shoes 9 See Rx Instructions .Route .MEDSUPPLY Qty: 1 0RF Rx Instructions: As directed sildenafil (pulm.hypertension) 20 mg tablet 20 mg PO DAILY PRN (Reason: sexual activity) Qty: 30 0RF Rx Instructions: administer doses at least 4-6 hours apart (DME) pen needle, diabetic 33 gauge x 1/4 needle See Rx Instructions .Route Qty: 100 0RF Rx Instructions: use to inject ozempic once per week (DME) blood-glucose meter [OneTouch Verio Meter] Mis See Rx Instructions .Route Rx Instructions: Check BS twice daily. (DME) OneTouch Verio test strips Strip See Rx Instructions .Route Qty: 100 3RF Rx Instructions: Check blood sugar twice daily nitroglycerin 0.4 mg tablet, sublingual 0.4 mg sublingual Q5M PRN (Reason: chest pain) Qty: 10 0RF Rx Instructions: do not exceed 3 doses per episode (DME) TENS unit electrodes Pad See Rx Instructions .Route Qty: 4 4RF Rx Instructions: As directed (DME) lancets [OneTouch UltraSoft Lancets] Misc See Rx Instructions .Route Qty: 100 1RF Rx Instructions: Use to check BS twice per day fenofibrate nanocrystallized 145 mg tablet 145 mg PO HS Qty: 90 0RF metoprolol succinate 50 mg tablet extended release 24 hr 50 mg PO DAILY Qty: 90 0RF terazosin 10 mg capsule 10 mg PO HS Qty: 90 3RF Rx Instructions: Please refill for #90 lisinopril 5 mg tablet 5 mg PO QAM Qty: 90 0RF rosuvastatin 20 mg tablet 20 mg PO DAILY Qty: 90 2RF semaglutide 2 mg/dose (8 mg/3 mL) pen injector 2 mg subcut WEEKLY Qty: 3 3RF Rx Instructions: for 4 doses sulfamethoxazole-trimethoprim [Bactrim DS] 800-160 mg tablet 1 tablet PO Q12H Qty: 14 0RF Follow-up/Referrals: Lyle Sheppard DO [Primary Care Provider, Family Practice]
[2025-06-04 17:17] VITALS: BP 153/99; PULSE 92; RESP 18; TEMP 37.7; O2SAT 98
--- NOTE | 2025-06-04 17:18 | PC.NURSE ---
EDP gave verbal order for urojet to be placed around the meatus
[2025-06-04] MEDS: LIDOCAINE 2% GEL UROJET 10 ML PKG (17:29)
[2025-06-04 17:31] LABS: Add Urine Microscopic? YES; Appearance Urine Cloudy (Clear); Glucose Urine UA 3+ mg/dL (Negative); Leukocyte Esterase Ur 3+ LEU/UL (Negative); Need Manual Microscopic Reviewed; Nitrate Urine Positive (Negative); Specific Grav Ur 1.027 (1.001-1.035)
[2025-06-04] MEDS: HYDROcodone/acetaminophen (*CRX) 5-325 MG TABLET 1 TAB PO (18:08)
[2025-06-04 18:32] VITALS: BP 135/75; PULSE 91; RESP 18; O2SAT 97
== END 2025-06-04 18:34 | disposition home or self-care (01) ==
PROVIDERS: Emergency Provider Emergency Medicine; PCP Family Medicine
DX: N45.2 Orchitis (principal); N39.0 Urinary tract infection, site not specified; E11.22 Type 2 diabetes mellitus with diabetic chronic kidney disease; I13.0 Hypertensive heart and chronic kidney disease with heart failure and stage 1 through stage 4 chronic kidney disease, or unspecified chronic kidney disease; N18.1 Chronic kidney disease, stage 1; I50.9 Heart failure, unspecified; E11.42 Type 2 diabetes mellitus with diabetic polyneuropathy; I25.2 Old myocardial infarction; E78.2 Mixed hyperlipidemia; J44.9 Chronic obstructive pulmonary disease, unspecified; G47.33 Obstructive sleep apnea (adult) (pediatric); Z95.5 Presence of coronary angioplasty implant and graft; Z87.891 Personal history of nicotine dependence; Z79.899 Other long term (current) drug therapy; Z79.85 Long-term (current) use of injectable non-insulin antidiabetic drugs
CPT/HCPCS: 76870; 81001; 87077; 87086; 87186; 93976; 99284; A9270

== ENCOUNTER 2025-07-03 23:44 | Emergency (ER) | payer MEDICARE, MEDICAID, SELFPAY ==
[2025-07-03 23:54] VITALS: BP 161/96; PULSE 97; RESP 20; TEMP 36.6; O2SAT 96
[2025-07-04 02:40] VITALS: BP 141/84; PULSE 84; RESP 18; O2SAT 95
--- NOTE | 2025-07-04 04:42 | PC.NURSE ---
Pt states that he has been here since 2300 and has been awake sine 0600 yesterday. States that since he has not seen a provider yet, he will go home and follow up with his urologist office once they open. Pt at this time is axox4, ambulatory with a steady gait, in no signs of acute distress.
== END 2025-07-04 04:42 | disposition left against medical advice (07) ==
LOC: ANHED 07-04 05:19
PROVIDERS: Emergency Provider Nurse Practitioner Family; PCP Nurse Practitioner Family
DX: T83.031A Leakage of indwelling urethral catheter, initial encounter (principal)
CPT/HCPCS: 99199

== ENCOUNTER 2025-07-11 10:55 | Outpatient (CLI) | payer MEDICARE, MEDICAID, SELFPAY ==
[2025-07-11 11:10] LABS: Hematocrit 42.8 % (37.0-46.0); Hemoglobin 14.6 g/dL (12.4-15.3); Immature Granulocyte Percent A 1.3 % (0.0-0.0); Lymphocytes Absolute Auto 1.54 K/mm3 (1.10-4.50); Mean Corpuscular HGB Conc 34.1 g/dL (32-36); Mean Corpuscular Hemoglobin 31.1 pg (27.0-31.0); Mean Corpuscular Volume 91.1 fL (78.0-102.0); Nucleated Red Blood Cells Absolute Auto 0.00 K/mm3 (0.00-0.00); Nucleated Red Blood Cells Perc 0.0 % (0-0.0); Platelet Count Result 214 K/mm3 (150-420); Red Blood Count 4.70 M/mm3 (4.70-6.10); White Blood Count 7.1 K/mm3 (4.8-10.8)
[2025-07-11 11:28] LABS: Hemoglobin A1C 6.4 % (<5.7)
[2025-07-11 11:32] LABS: MALB Creatinine Ratio 223.5 mg/g (0-30)
[2025-07-11 11:47] LABS: Alanine Aminotransferase 26 U/L (6-50); Albumin Level 4.5 g/dL (3.5-5.1); Alkaline Phosphatase 61 U/L (38-126); Anion Gap 8 mmol/L (4-12); Aspartate Amino Transferase 23 U/L (17-59); Bilirubin,Total 0.6 mg/dL (0.2-1.3); Blood Urea Nitrogen 22 mg/dL (9-20); Calcium 9.8 mg/dL (8.4-10.2); Carbon Dioxide 31 mmol/L (22-30); Chloride 102 mmol/L (98-107); Cholesterol 200 mg/dL (0-200); Estimated Glomerular Filt Rate > 60; Glucose 174 mg/dL (65-110); HDL Direct 44 mg/dL; Osmolality Calculated 299 mOsm/kg (285-295); Potassium 4.6 mmol/L (3.4-5.0); Sodium 141 mmol/L (137-145); Total Protein 8.7 g/dL (6.3-8.2); Triglycerides 178 mg/dL (<150)
[2025-07-11 12:16] LABS: Prostate Specific Antigen 2.9 ng/mL (< OR = 4.0)
--- OUTSIDE RECORDS SUMMARY | 2025-07-11 12:53 | XMS_ITS | Clinical Summary ---
Author Organization [facility] Address [address] [place] [address] Care Team Providers Care Indoor Landscaper/Gardener Name Role Phone Lyle Sheppard DO Primary Care Provider [phone] [facility],non-owned Affiliates and Associated Physician Practices is amultiple site organization consisting of ambulatory clinics and hospital sitesin [place], [place] and [place]. This disclosure is being madepursuant to the Care Everywhere program and may not contain all information available regarding this patient. Last updated 18.[facility] Allergies No known active allergies Medications * [...] runs out. 15 mL 05/23/20 25 Active Active Problems No known active problems Encounters Date Type Department Care Team Description 05/28/2025 Telephone [facility] [address] [place] [address] Tone Rubio MD Question (Post op ear concerns) 05/23/2025 7:37 AM CDT Anesthesia Event [facility] [address] [place] [address] Laureano Zheng MD KeYue estrada, PRESS DEPARTMENT MANAGER-GRINDER MILL OPERATOR 05/23/2025 7:05 AM CDT - 05/23/2025 9:35 AM CDT Surgery [facility] [address] [place] [address] Tone Rubio MD Left tympanoplasty, ossiculoplasty, tragal cartilage graft, perichondrial free tissue graft 05/23/2025 5:29 AM CDT - 05/23/2025 10:58 AM CDT Hospital Encounter [facility] [address] [place] [address] Tone Rubio MD Surgery General Discharge Disposition: Home or Self Care 05/23/2025 Travel 05/10/2025 3:33 PM CDT - 05/10/2025 11:59 PM CDT Hospital Encounter [facility] D[facility] [address] [place] [address] Tone Rubio MD Discharge Disposition: Home or Self Care 05/10/2025 3:32 PM CDT Hospital Encounter [facility] E[facility]/HOLTER [address] [place] [address] Tone Rubio MD Discharge Disposition: Home or Self Care 05/10/2025 2:00 PM CDT - 05/10/2025 3:31 PM CDT Hospital Encounter [facility] PAT [address] [place] [address] Tone Rubio MD Discharge Disposition: Home or Self Care 05/10/2025 Travel from Last 3 Months Immunizations Immunization Administration Dates Next Due INFLUENZA VACCINE, HIGH-DOSE , QUADR. (FLUZONE HIGH-DOSE QUADRIVALENT; 65Y+), 0.7 ML (HD-IIV4) 06/24/2023 Social History Tobacco Use Types Packs/Day Years Used Date Smoking Tobacco: Former Cigarettes 1 38 1 963 - 2001 Smokeless Tobacco: Never Tobacco Cessation:Counseling Given: Not [...] 05/23/2025 5:45 AM CDT Plan of Treatment Health Maintenance [...] this topic Medical Devices Implanted Type Area Independent Driver Device Identifier Shelf Expiration Date Model / Serial / Lot Cmnt Bone Olmps [employer] Gomez 2gm Mid Ear Implanted:Qty: 1 on 05/23/2025 by Tone Rubio MD [facility] Left: Ear [employer] Endoscopy 06/08/2025 [id number] / / [id number] Procedures Procedure Name Priority Date/Time Associated Diagnosis Comments GLUCOSE - POINT OF CARE Routine 05/23/2025 9:25 AM CDT ENDOTRACHEAL TUBE NOTE Routine 05/23/2025 8:18 AM CDT ME TYMPANOPLASTY 05/23/2025 7:21 AM CDT Dysfunction of left eustachian tube Perforation of left tympanic membrane Otorrhea of left ear Special Needs S2 mini foot pedal, FN - Specialty Care (CONF#[id number]) 05/16 GLUCOSE - POINT OF CARE Routine [...] - 99 mg/dL 05/23/2025 9:26 AM CDT [facility] Specimen Type Arterial/C apillary 05/23/2025 9:26 AM CDT [facility] Blood BLOOD SPECIMEN / Unknown 05/23/2025 9:25 AM CDT 05/23/2025 9:26 AM CDT us Tone Rubio MD LAB - POINT OF CARE ORDERAB LES Final Result [facility] [address] [place] [address], [facility] [phone] * ETT LINE PERFORMABLE (05/23/2025 8:18 AM CDT) Narrative Hermes Joiner CAA - 05/23/2025 8:18 AM CDT Hermes Joiner CAA 05/23/2025 8:20 AM Endotracheal Tube Placement: Patient Location: OR. Intubation Event Date/Time: 05/23/2025 7:47 AM Procedure: intubation ([id number]) Procedure Section: Sedation: under general anesthesia. Indications [...] 4.0 - 10.7 x10E9/L 05/10/2025 4:27 PM [facility] RBC Count 4.74 4.30 - 5.80 x10E12/L 05/10/2025 4:27 PM [facility] Hemoglobin 14.9 13.3 - 17.5 g/dL 05/10/2025 4:27 PM [facility] Hematocrit 42.7 38.7 - 51.1 % 05/10/2025 4:27 PM [facility] MCV 90.1 80.0 - 98.0 fL 05/10/2025 4:27 PM [facility] MCH 31.4 26.7 - 33.6 pg 05/10/2025 4:27 PM [facility] MCHC 34.9 31.7 - 36.3 g/dL 05/10/2025 4:27 PM [facility] RDW-CV 12.4 11.3 - 14.8 % 05/10/2025 4:27 PM [facility] Platelet Count 166 150 - 420 x10E9/L 05/10/2025 4:27 PM [facility] MPV 9.1 7.8 - 11.4 fL 05/10/2025 4:27 PM [facility] Blood BLOOD SPECIMEN / Unknown Lab Venipuncture / Unknown 05/10/2025 3:48 PM CDT 05/10/2025 4:11 PM CDT us Yue Louis PRESS DEPARTMENT MANAGER-GRINDER MILL OPERATOR LAB - HEMATOLOGY ORDERAB LES Final Result Performing Organization Address City/State/[facility] Co de Phone Number [facility] [address] [place] [address], [facility] [phone] * (ABNORMAL) BASIC METABOLIC PANEL (CALCIUM TOTAL) (05/10/2025 3:48 PM CDT) BUN 24 7 - 26 mg/dL 05/10/2025 4:45 PM T [facility] Creatinine 1.11 0.71 - 1.16 mg/dL 05/10/2025 4:45 PM T [facility] Sodium 138 136 - 145 mmol/L 05/10/2025 4:45 PM [facility] Potassium 4.1 3.5 - 4.5 mmol/L 05/10/2025 4:45 PM [facility] Chloride 108(H) 98 - 107 mmol/L 05/10/2025 4:45 PM [facility] CO2 24 22 - 29 mmol/L 05/10/2025 4:45 PM [facility] Glucose 113(H) 70 - 99 mg/dL 05/10/2025 4:45 PM [facility] Calcium 9.9 8.4 - 10.2 mg/dL 05/10/2025 4:45 PM [facility] Anion Gap 6 6 - 16 05/10/2025 4:45 PM [facility] BUN/Creatinine Ratio 22 7 - 23 05/10/2025 4:45 PM [facility] Osmolality Calculated 291 275 - 295 mOsm/kg 05/10/2025 4:45 PM [facility] eGFR by CKD-EPI 69(L) >=90 mL/min/1.7 3 m2 05/10/2025 4:45 PM [facility] Comment:Estimated Glomerular Filtration Rate (eGFR) calculated using the CKD-EPI Creatinine Equation (2020), per the National Kidney Foundation and [place] [employer] Nephrology recommendations. Blood BLOOD SPECIMEN / Unknown Lab Venipuncture / Unknown 05/10/2025 3:48 PM CDT 05/10/2025 4:11 PM CDT Yue Louis PRESS DEPARTMENT MANAGER-GRINDER MILL OPERATOR LAB - CHEMISTRY ORDERABL ES Final Result [facility] [address] [place] [address], [facility] [phone] * EKG 12-Lead (05/10/2025 3:01 PM CDT) Ventricular Rate 65 BPM [facility] Atrial Rate 65 BPM [facility] P-R Interval 160 ms [facility] QRS Duration ms 126 ms [facility] Q-T Interval ms 428 ms [facility] QTC Calculation (Bezet) 445 ms [facility] Calculated P Smoot 51 degrees [facility] Calculated R Smoot -67 degrees [facility] Calculated T Smoot 61 degrees [facility] Interpretation EKG NORMAL SINUS RHYTHM LEFT AXIS DEVIATION NON-SPECIFIC INTRA-VENTRIC ULAR CONDUCTION BLOCK MINIMAL VOLTAGE CRITERIA FOR LVH, MAY BE NORMAL VARIANT ( Bolt product ) ABNORMAL ECG NO PREVIOUS ECGS AVAILABLE Confirmed by MADELYN FOWLER MD ([id number]) on 05/12/2025 3:46:01 PM [facility] 05/10/2025 3:01 PM CDT 05/12/2025 3:46 PM CDT us Yue Louis PRESS DEPARTMENT MANAGER-GRINDER MILL OPERATOR ECG ORDERABLES Edited R esult - Final [facility] from Last 3 Months Insurance [facility] MANAGED MEDICARE [facility] MEDICAID - [place] Advance Directives Documents on File Type Date Recorded Patient Beef Grinder Expl anation Adv Directive/Living Will/POA 05/23/2025 DAYANARA (DAUGHTER) P OA Care Teams Indoor Landscaper/Gardener Relationship Specialty Start Date End Date Lyle Sheppard DO [address] [place] [address] PCP - General Family Medicine 01/09/25
== END 2025-07-11 10:56 | disposition home or self-care (01) ==
LOC: CHSLAB 10:56
PROVIDERS: PCP Family Medicine; Visit Provider Nurse Practitioner Family
DX: Z12.5 Encounter for screening for malignant neoplasm of prostate (principal); N40.0 Benign prostatic hyperplasia without lower urinary tract symptoms; I10 Essential (primary) hypertension; E11.65 Type 2 diabetes mellitus with hyperglycemia; I25.10 Atherosclerotic heart disease of native coronary artery without angina pectoris; Z79.899 Other long term (current) drug therapy; Z13.6 Encounter for screening for cardiovascular disorders
CPT/HCPCS: 36415; 80053; 80061; 82043; 82306; 83036; 84153; 85025; G0103